=== PATIENT | male | born 1950 | race Caucasian/White ===

== ENCOUNTER → 2017-03-10 05:00 | Outpatient (REF) | payer MEDICARE, SELFPAY ==
[2017-03-10 09:41] LABS: AST(SGOT) 27 U/L (15-37); Alanine Aminotransfer ALT/SGPT 27 U/L (12-78); Alkaline Phosphatase 76 U/L (45-117); Anion Gap 9 (5-15); BUN 10 mg/dL (7-18); BUN/Creat Ratio 16.3 RATIO (10-20); Bilirubin, Direct 0.12 mg/dL (0.00-0.30); Calcium,Total 8.9 mg/dL (8.5-10.1); Chloride 102 mmol/L (98-107); Creatinine, Serum 0.61 mg/dL (0.70-1.30); EST Glomerular Filtration Rate 140 mL/min (>60); Est Glom Filt Rate - Afr Amer 169 mL/min (>60); Globulin 4.1 g/dL (2.2-4.2); Glucose 83 mg/dL (70-110); Potassium 4.1 mmol/L (3.5-5.1); Protein, Total 7.1 g/dL (6.4-8.2); Sodium Level 139 mmol/L (136-145)
[2017-03-14 09:20] LABS: Trileptal-Oxcarbazepine 30 ug/mL (10-35)
== END ==
LOC: OLS.WCC 05:00
PROVIDERS: Visit Provider Family Medicine
DX: I10 Essential (primary) hypertension (principal); Z79.899 Other long term (current) drug therapy
CPT/HCPCS: 36415; 80048; 80076; 82542

== ENCOUNTER → 2017-05-13 05:30 | Outpatient (REF) | payer MEDICARE, SELFPAY ==
[2017-05-16 07:05] LABS: Trileptal-Oxcarbazepine 21 ug/mL (10-35)
== END ==
LOC: OLS.WCC 05:30
PROVIDERS: Visit Provider Family Medicine
DX: Z79.899 Other long term (current) drug therapy (principal)
CPT/HCPCS: 36415; 82542

== ENCOUNTER → 2017-06-07 05:00 | Outpatient (REF) | payer MEDICARE, SELFPAY ==
[2017-06-07 08:00] LABS: Hematocrit 40.3 % (40-54); Hemoglobin 13.7 g/dl (13.0-16.5); Mean Corpuscular Hgb 34.2 pg (27.0-32.0); Mean Corpuscular Volume 100.5 fL (80-94); Mean Platelet Vol. 9.6 fl (6.2-12.0); Platelet Count 86 K/mm3 (150-450); RBC Distribution Width CV 13.2 % (11.6-14.6); RBC Distribution Width SD 48.8 fl (35.1-43.9); Red Blood Count 4.01 M/mm3 (4.6-6.2); White Blood Count 2.8 K/mm3 (4.4-11.0)
[2017-06-07 08:04] LABS: Scan Indicated on CBC? Y/N NO
[2017-06-07 08:06] LABS: Anion Gap 8 (5-15); BUN 11 mg/dL (7-18); BUN/Creat Ratio 20.7 RATIO (10-20); Calcium,Total 8.6 mg/dL (8.5-10.1); Chloride 107 mmol/L (98-107); Creatinine, Serum 0.53 mg/dL (0.70-1.30); EST Glomerular Filtration Rate 164 mL/min (>60); Est Glom Filt Rate - Afr Amer 199 mL/min (>60); Glucose 89 mg/dL (74-106); Potassium 3.9 mmol/L (3.5-5.1); Sodium Level 142 mmol/L (136-145)
[2017-06-09 13:00] LABS: Trileptal-Oxcarbazepine 16 ug/mL (10-35)
== END ==
LOC: OLS.WCC 05:00
PROVIDERS: Visit Provider Family Medicine
DX: I10 Essential (primary) hypertension (principal); R56.9 Unspecified convulsions; Z79.899 Other long term (current) drug therapy
CPT/HCPCS: 80048; 82542; 85027

== ENCOUNTER → 2017-09-07 05:50 | Outpatient (REF) | payer MEDICARE, SELFPAY ==
[2017-09-12 23:28] LABS: AST(SGOT) 26 U/L (15-37); Alanine Aminotransfer ALT/SGPT 26 U/L (16-61); Albumin, Serum 2.9 g/dL (3.2-5.0); Alkaline Phosphatase 77 U/L (45-117); Anion Gap 8 (5-15); BUN 13 mg/dL (7-18); BUN/Creat Ratio 20.6 RATIO (10-20); Bilirubin, Direct 0.12 mg/dL (0.00-0.30); Calcium,Total 8.9 mg/dL (8.5-10.1); Chloride 109 mmol/L (98-107); Creatinine, Serum 0.63 mg/dL (0.70-1.30); EST Glomerular Filtration Rate 135 mL/min (>60); Est Glom Filt Rate - Afr Amer 164 mL/min (>60); Globulin 4.3 g/dL (2.2-4.2); Glucose 87 mg/dL (74-106); PSA,Total - Annual Screen 0.38 ng/mL (0.00-4.00); Potassium 3.9 mmol/L (3.5-5.1); Protein, Total 7.2 g/dL (6.4-8.2); Sodium Level 145 mmol/L (136-145)
== END ==
LOC: OLS.WCC 05:50
PROVIDERS: Visit Provider Family Medicine
DX: I10 Essential (primary) hypertension (principal); Z79.899 Other long term (current) drug therapy; R56.9 Unspecified convulsions
CPT/HCPCS: 36415; 80048; 80076; 82542; 84153; G0103

== ENCOUNTER → 2017-12-08 05:00 | Outpatient (REF) | payer MEDICARE, SELFPAY ==
[2017-12-08 09:28] LABS: Hematocrit 42.4 % (40-54); Hemoglobin 14.3 g/dl (13.0-16.5); Mean Corp Hgb Conc 33.7 g/gl (32-36); Mean Corpuscular Hgb 34.5 pg (27.0-32.0); Mean Corpuscular Volume 102.2 fL (80-94); Mean Platelet Vol. 10.4 fl (6.2-12.0); Platelet Count 93 K/mm3 (150-450); Red Blood Count 4.15 M/mm3 (4.6-6.2); White Blood Count 3.2 K/mm3 (4.4-11.0)
[2017-12-08 09:33] LABS: AST(SGOT) 32 U/L (15-37); Alanine Aminotransfer ALT/SGPT 32 U/L (16-61); Alkaline Phosphatase 72 U/L (45-117); Anion Gap 7 (5-15); BUN 11 mg/dL (7-18); BUN/Creat Ratio 17.5 RATIO (10-20); Bilirubin, Direct 0.15 mg/dL (0.00-0.30); Calcium,Total 8.9 mg/dL (8.5-10.1); Chloride 107 mmol/L (98-107); Cholesterol 214 mg/dL (200); Creatinine, Serum 0.63 mg/dL (0.70-1.30); EST Glomerular Filtration Rate 135 mL/min (>60); Est Glom Filt Rate - Afr Amer 164 mL/min (>60); Globulin 4.1 g/dL (2.2-4.2); Glucose 86 mg/dL (74-106); High Density Lipoprotein 46 mg/dL; Potassium 4.2 mmol/L (3.5-5.1); Protein, Total 7.1 g/dL (6.4-8.2); Scan Indicated on CBC? Y/N NO; Sodium Level 144 mmol/L (136-145); Triglycerides 139 mg/dL; Very Low Density Lipoprotein 28 mg/dL (5-40)
[2017-12-11 11:57] LABS: Trileptal-Oxcarbazepine 29 ug/mL (10-35)
== END ==
LOC: OLS.WCC 05:00
PROVIDERS: Visit Provider Family Medicine
DX: I10 Essential (primary) hypertension (principal); Z79.899 Other long term (current) drug therapy
CPT/HCPCS: 36415; 80048; 80061; 80076; 82542; 85027

== ENCOUNTER → 2018-03-09 05:00 | Outpatient (REF) | payer MEDICARE, SELFPAY ==
[2018-03-09 09:10] LABS: AST(SGOT) 27 U/L (15-37); Alanine Aminotransfer ALT/SGPT 28 U/L (16-61); Albumin, Serum 2.7 g/dL (3.2-5.0); Alkaline Phosphatase 70 U/L (45-117); Anion Gap 5 (5-15); BUN 12 mg/dL (7-18); BUN/Creat Ratio 21.8 RATIO (10-20); Bilirubin, Direct 0.15 mg/dL (0.00-0.30); Calcium,Total 8.5 mg/dL (8.5-10.1); Chloride 107 mmol/L (98-107); Creatinine, Serum 0.55 mg/dL (0.70-1.30); EST Glomerular Filtration Rate 158 mL/min (>60); Est Glom Filt Rate - Afr Amer 191 mL/min (>60); Globulin 4.1 g/dL (2.2-4.2); Glucose 75 mg/dL (74-106); Potassium 4.2 mmol/L (3.5-5.1); Protein, Total 6.8 g/dL (6.4-8.2); Sodium Level 142 mmol/L (136-145)
[2018-03-15 09:18] LABS: Trileptal-Oxcarbazepine 41 ug/mL (10-35)
== END ==
LOC: OLS.WCC 05:00
PROVIDERS: Visit Provider Family Medicine
DX: Z79.899 Other long term (current) drug therapy (principal); R56.9 Unspecified convulsions; G80.9 Cerebral palsy, unspecified
CPT/HCPCS: 36415; 80048; 80076; 82542

== ENCOUNTER → 2018-06-06 05:00 | Outpatient (REF) | payer MEDICARE, SELFPAY ==
[2018-06-06 08:39] LABS: Hematocrit 43.2 % (40-54); Hemoglobin 14.4 g/dl (13.0-16.5); Mean Corp Hgb Conc 33.3 g/gl (32-36); Mean Corpuscular Hgb 34.4 pg (27.0-32.0); Mean Corpuscular Volume 103.1 fL (80-94); Mean Platelet Vol. 10.2 fl (6.2-12.0); Platelet Count 104 K/mm3 (150-450); RBC Distribution Width CV 12.8 % (11.6-14.6); RBC Distribution Width SD 47.8 fl (35.1-43.9); Red Blood Count 4.19 M/mm3 (4.6-6.2); White Blood Count 4.4 K/mm3 (4.4-11.0)
[2018-06-06 08:42] LABS: Scan Indicated on CBC? Y/N NO
[2018-06-06 08:45] LABS: Anion Gap 6 (5-15); BUN 15 mg/dL (7-18); BUN/Creat Ratio 23.6 RATIO (10-20); Calcium,Total 8.5 mg/dL (8.5-10.1); Chloride 107 mmol/L (98-107); Creatinine, Serum 0.64 mg/dL (0.70-1.30); EST Glomerular Filtration Rate 134 mL/min (>60); Est Glom Filt Rate - Afr Amer 162 mL/min (>60); Glucose 80 mg/dL (74-106); Potassium 4.2 mmol/L (3.5-5.1); Sodium Level 143 mmol/L (136-145)
[2018-06-09 12:59] LABS: Trileptal-Oxcarbazepine 26 ug/mL (10-35)
== END ==
LOC: OLS.WCC 05:00
PROVIDERS: Visit Provider Family Medicine
DX: I10 Essential (primary) hypertension (principal); R56.9 Unspecified convulsions; Z79.899 Other long term (current) drug therapy
CPT/HCPCS: 36415; 80048; 82542; 85027

== ENCOUNTER → 2018-09-07 | Outpatient (REF) | payer MEDICARE, SELFPAY ==
[2018-09-07 08:30] LABS: AST(SGOT) 24 U/L (15-37); Alanine Aminotransfer ALT/SGPT 24 U/L (16-61); Albumin, Serum 2.7 g/dL (3.2-5.0); Alkaline Phosphatase 66 U/L (45-117); Anion Gap 6 (5-15); BUN 10 mg/dL (7-18); BUN/Creat Ratio 16.2 RATIO (10-20); Bilirubin, Direct 0.13 mg/dL (0.00-0.30); Calcium,Total 8.4 mg/dL (8.5-10.1); Chloride 102 mmol/L (98-107); Creatinine, Serum 0.62 mg/dL (0.70-1.30); EST Glomerular Filtration Rate 138 mL/min (>60); Est Glom Filt Rate - Afr Amer 166 mL/min (>60); Glucose 88 mg/dL (74-106); PSA,Total - Annual Screen 1.03 ng/mL (0.00-4.00); Potassium 3.2 mmol/L (3.5-5.1); Protein, Total 6.7 g/dL (6.4-8.2); Sodium Level 138 mmol/L (136-145)
[2018-09-10 13:56] LABS: Trileptal-Oxcarbazepine 31 ug/mL (10-35)
== END | disposition home or self-care (01) ==
LOC: OLS.WCC 06:45
PROVIDERS: Visit Provider Family Medicine
DX: I10 Essential (primary) hypertension (principal); Z79.899 Other long term (current) drug therapy; R56.9 Unspecified convulsions; Z12.5 Encounter for screening for malignant neoplasm of prostate
CPT/HCPCS: 36415; 80048; 80076; 82542; 84153; G0103

== ENCOUNTER → 2018-12-08 05:00 | Outpatient (REF) | payer MEDICARE, SELFPAY ==
[2018-12-08 07:48] LABS: Hemoglobin 13.5 g/dL (13.0-16.5); Mean Corp Hgb Conc 32.9 g/dL (32-36); Mean Corpuscular Hgb 33.5 pg (27.0-32.0); Mean Corpuscular Volume 101.7 fL (80-94); Mean Platelet Vol. 10.3 fl (6.2-12.0); Platelet Count 90 K/mm3 (150-450); RBC Distribution Width CV 12.8 % (11.6-14.6); RBC Distribution Width SD 47.9 fl (35.1-43.9); Red Blood Count 4.03 M/mm3 (4.6-6.2); White Blood Count 2.9 K/mm3 (4.4-11.0)
[2018-12-08 08:24] LABS: Anion Gap 6 (5-15); BUN 10 mg/dL (7-18); BUN/Creat Ratio 18.8 RATIO (10-20); Calcium,Total 8.7 mg/dL (8.5-10.1); Chloride 109 mmol/L (98-107); Cholesterol 190 mg/dL (200); Creatinine, Serum 0.53 mg/dL (0.70-1.30); EST Glomerular Filtration Rate 164 mL/min (>60); Est Glom Filt Rate - Afr Amer 198 mL/min (>60); Glucose 77 mg/dL (74-106); High Density Lipoprotein 52 mg/dL; Potassium 4.2 mmol/L (3.5-5.1); Sodium Level 144 mmol/L (136-145); Triglycerides 104 mg/dL; Very Low Density Lipoprotein 21 mg/dL (5-40)
[2018-12-12 09:53] LABS: Trileptal-Oxcarbazepine 24 ug/mL (10-35)
== END ==
LOC: OLS.WCC 05:00
PROVIDERS: Visit Provider Family Medicine
DX: I10 Essential (primary) hypertension (principal); R56.9 Unspecified convulsions; Z79.899 Other long term (current) drug therapy
CPT/HCPCS: 36415; 80048; 80061; 82542; 85027

== ENCOUNTER → 2019-01-09 | Outpatient (REF) | payer MEDICARE, SELFPAY ==
[2019-01-09 07:37] LABS: Absolute Lymphocyte Count 1.06 X10^3/uL (0.83-4.51); Absolute Neutrophil Count 1.6 X10^3/uL (2.0-7.7); Basophil# 0.03 X10^3/uL; Basophil% 0.9 % (0-1); Eosinophil# 0.28 X10^3/uL; Eosinophils% 8.2 % (0-5); Hematocrit 42.5 % (40-54); Hemoglobin 14.2 g/dL (13.0-16.5); Lymphocyte # 1.06 X10^3/ul (4.0); Lymphocyte % 31.2 % (19-41); Mean Corp Hgb Conc 33.4 g/dL (32-36); Mean Corpuscular Hgb 34.2 pg (27.0-32.0); Mean Corpuscular Volume 102.4 fL (80-94); Mean Platelet Vol. 9.8 fl (6.2-12.0); Monocyte# 0.42 X10^3/uL; Monocyte% 12.4 % (0-10); NRBC Flagged by Analyzer 0 % (0-5); Platelet Count 106 K/mm3 (150-450); RBC Distribution Width CV 12.6 % (11.6-14.6); RBC Distribution Width SD 47.2 fl (35.1-43.9); Red Blood Count 4.15 M/mm3 (4.6-6.2); White Blood Count 3.4 K/mm3 (4.4-11.0)
[2019-01-09 07:56] LABS: ALB/GLOB Ratio 0.7 RATIO (0.9-2.4); AST(SGOT) 26 U/L (15-37); Alanine Aminotransfer ALT/SGPT 26 U/L (16-61); Albumin, Serum 2.9 g/dL (3.2-5.0); Alkaline Phosphatase 73 U/L (45-117); Anion Gap 2 (5-15); BUN 10 mg/dL (7-18); BUN/Creat Ratio 15.6 RATIO (10-20); Calcium,Total 8.9 mg/dL (8.5-10.1); Chloride 105 mmol/L (98-107); Creatinine, Serum 0.64 mg/dL (0.70-1.30); EST Glomerular Filtration Rate 133 mL/min (>60); Est Glom Filt Rate - Afr Amer 160 mL/min (>60); Globulin 4.1 g/dL (2.2-4.2); Glucose 97 mg/dL (74-106); Potassium 4.4 mmol/L (3.5-5.1); Sodium Level 139 mmol/L (136-145)
== END | disposition home or self-care (01) ==
LOC: OLS.WCC 05:00
PROVIDERS: Visit Provider Family Medicine
DX: E66.9 Obesity, unspecified (principal); Z79.2 Long term (current) use of antibiotics; F33.9 Major depressive disorder, recurrent, unspecified; G81.13 Spastic hemiplegia affecting right nondominant side; G80.9 Cerebral palsy, unspecified
CPT/HCPCS: 36415; 80053; 85025

== ENCOUNTER → 2019-01-15 | Outpatient (REF) | payer MEDICARE, SELFPAY | END | disposition home or self-care (01) | LOC: OLS.WCC 04:00 | PROVIDERS: Visit Provider Family Medicine | DX: R56.9 Unspecified convulsions (principal); I10 Essential (primary) hypertension; Z79.899 Other long term (current) drug therapy | CPT/HCPCS: 36415 ==

== ENCOUNTER → 2019-03-09 05:00 | Outpatient (REF) | payer MEDICARE, SELFPAY ==
[2019-03-09 07:42] LABS: AST(SGOT) 25 U/L (15-37); Alanine Aminotransfer ALT/SGPT 20 U/L (16-61); Albumin, Serum 2.8 g/dL (3.2-5.0); Alkaline Phosphatase 72 U/L (45-117); Anion Gap 7 (5-15); BUN 9 mg/dL (7-18); BUN/Creat Ratio 13.4 RATIO (10-20); Bilirubin, Direct 0.13 mg/dL (0.00-0.30); Calcium,Total 8.9 mg/dL (8.5-10.1); Chloride 104 mmol/L (98-107); Creatinine, Serum 0.67 mg/dL (0.70-1.30); EST Glomerular Filtration Rate 125 mL/min (>60); Est Glom Filt Rate - Afr Amer 152 mL/min (>60); Glucose 82 mg/dL (74-106); Potassium 3.8 mmol/L (3.5-5.1); Protein, Total 6.8 g/dL (6.4-8.2); Sodium Level 140 mmol/L (136-145)
[2019-03-12 16:19] LABS: Trileptal-Oxcarbazepine 27 ug/mL (10-35)
== END ==
LOC: OLS.WCC 05:00
PROVIDERS: Visit Provider Family Medicine
DX: I10 Essential (primary) hypertension (principal); R56.9 Unspecified convulsions; Z79.899 Other long term (current) drug therapy
CPT/HCPCS: 36415; 80048; 80076; 82542

== ENCOUNTER → 2019-05-11 05:00 | Outpatient (REF) | payer MEDICARE, MEDICAID, SELFPAY | LOC: OLS.WCC 05:00 | PROVIDERS: Visit Provider Family Medicine | DX: Z79.899 Other long term (current) drug therapy (principal) | CPT/HCPCS: 36415 ==

== ENCOUNTER → 2019-06-08 05:00 | Outpatient (REF) | payer MEDICARE, MEDICAID, SELFPAY ==
[2019-06-08 08:29] LABS: Hematocrit 40.1 % (40-54); Hemoglobin 13.7 g/dL (13.0-16.5); Mean Corp Hgb Conc 34.2 g/dL (32-36); Mean Corpuscular Hgb 34.1 pg (27.0-32.0); Mean Corpuscular Volume 99.8 fL (80-94); Platelet Count 119 K/mm3 (150-450); RBC Distribution Width SD 47.4 fl (35.1-43.9); Red Blood Count 4.02 M/mm3 (4.6-6.2); White Blood Count 3.6 K/mm3 (4.4-11.0)
[2019-06-08 08:51] LABS: Anion Gap 3 (5-15); BUN 12 mg/dL (7-18); BUN/Creat Ratio 18.1 RATIO (10-20); Calcium,Total 8.8 mg/dL (8.5-10.1); Chloride 107 mmol/L (98-107); Creatinine, Serum 0.66 mg/dL (0.70-1.30); EST Glomerular Filtration Rate 127 mL/min (>60); Est Glom Filt Rate - Afr Amer 153 mL/min (>60); Glucose 98 mg/dL (74-106); Potassium 4.4 mmol/L (3.5-5.1); Sodium Level 138 mmol/L (136-145)
[2019-06-11 13:44] LABS: Trileptal-Oxcarbazepine 23 ug/mL (10-35)
== END ==
LOC: OLS.WCC 05:00
PROVIDERS: Visit Provider Family Medicine
DX: I10 Essential (primary) hypertension (principal); R56.9 Unspecified convulsions; Z79.899 Other long term (current) drug therapy
CPT/HCPCS: 36415; 80048; 82542; 85027

== ENCOUNTER → 2019-09-07 05:00 | Outpatient (REF) | payer MEDICARE, MEDICAID, SELFPAY | LOC: OLS.WCC 05:00 | PROVIDERS: Visit Provider Family Medicine | DX: I10 Essential (primary) hypertension (principal); R56.9 Unspecified convulsions; Z79.899 Other long term (current) drug therapy ==

== ENCOUNTER → 2019-09-10 04:00 | Outpatient (REF) | payer MEDICARE, MEDICAID, SELFPAY ==
[2019-09-10 09:08] LABS: AST(SGOT) 20 U/L (15-37); Alanine Aminotransfer ALT/SGPT 17 U/L (16-61); Albumin, Serum 2.5 g/dL (3.2-5.0); Alkaline Phosphatase 73 U/L (45-117); Anion Gap 5 (5-15); BUN 11 mg/dL (7-18); BUN/Creat Ratio 16.3 RATIO (10-20); Bilirubin, Direct 0.12 mg/dL (0.00-0.30); Calcium,Total 8.6 mg/dL (8.5-10.1); Chloride 106 mmol/L (98-107); Creatinine, Serum 0.68 mg/dL (0.70-1.30); EST Glomerular Filtration Rate 124 mL/min (>60); Est Glom Filt Rate - Afr Amer 150 mL/min (>60); Globulin 4.3 g/dL (2.2-4.2); Glucose 97 mg/dL (74-106); PSA,Total - Annual Screen 0.36 ng/mL (0.00-4.00); Potassium 3.9 mmol/L (3.5-5.1); Protein, Total 6.8 g/dL (6.4-8.2); Sodium Level 141 mmol/L (136-145)
[2019-09-12 05:26] LABS: Trileptal-Oxcarbazepine 30 ug/mL (10-35)
== END ==
LOC: OLS.WCC 04:00
PROVIDERS: Visit Provider Family Medicine
DX: I10 Essential (primary) hypertension (principal); R56.9 Unspecified convulsions; Z79.899 Other long term (current) drug therapy; Z12.5 Encounter for screening for malignant neoplasm of prostate
CPT/HCPCS: 36415; 80048; 80076; 82542; 84153; G0103

== ENCOUNTER → 2019-11-28 14:20 | Outpatient (REF) | payer MEDICARE, MEDICAID, SELFPAY | LOC: OLS.WCC 14:20 | PROVIDERS: Referring Provider Family Medicine; Visit Provider Family Medicine | DX: Z20.828 Contact with and (suspected) exposure to other viral communicable diseases (principal) | CPT/HCPCS: 87635; U0003 ==

== ENCOUNTER → 2019-12-04 13:20 | Outpatient (REF) | payer MEDICARE, MEDICAID, SELFPAY | LOC: OLS.WCC 13:20 | PROVIDERS: Referring Provider Family Medicine; Visit Provider Family Medicine | DX: Z20.828 Contact with and (suspected) exposure to other viral communicable diseases (principal) | CPT/HCPCS: 87635; U0003 ==

== ENCOUNTER → 2020-01-10 05:00 | Outpatient (REF) | payer MEDICARE, MEDICAID, SELFPAY ==
[2020-01-10 07:47] LABS: Hematocrit 37.9 % (40-54); Mean Corp Hgb Conc 34.3 g/dL (32-36); Mean Corpuscular Hgb 34.4 pg (27.0-32.0); Mean Corpuscular Volume 100.3 fL (80-94); Mean Platelet Vol. 9.9 fl (6.2-12.0); POSITIVE COUNT YES; Platelet Count 94 K/mm3 (150-450); RBC Distribution Width CV 12.7 % (11.6-14.6); RBC Distribution Width SD 46.5 fl (35.1-43.9); Red Blood Count 3.78 M/mm3 (4.6-6.2)
[2020-01-10 08:12] LABS: Anion Gap 4 (5-15); BUN 10 mg/dL (7-18); Calcium,Total 8.6 mg/dL (8.5-10.1); Chloride 103 mmol/L (98-107); Cholesterol 189 mg/dL (200); Creatinine, Serum 0.59 mg/dL (0.70-1.30); EST Glomerular Filtration Rate 145 mL/min (>60); Est Glom Filt Rate - Afr Amer 176 mL/min (>60); Glucose 80 mg/dL (74-106); High Density Lipoprotein 51 mg/dL; Potassium 3.8 mmol/L (3.5-5.1); Sodium Level 137 mmol/L (136-145); Triglycerides 80 mg/dL; Very Low Density Lipoprotein 16 mg/dL (5-40)
[2020-01-14 20:16] LABS: Trileptal-Oxcarbazepine 23 ug/mL (10-35)
== END ==
LOC: OLS.WCC 05:00
PROVIDERS: Referring Provider Family Medicine; Visit Provider Family Medicine
DX: I10 Essential (primary) hypertension (principal); Z79.899 Other long term (current) drug therapy; R56.9 Unspecified convulsions
CPT/HCPCS: 36415; 80048; 80061; 82542; 85027

== ENCOUNTER → 2020-03-10 05:00 | Outpatient (REF) | payer MEDICARE, MEDICAID, SELFPAY ==
[2020-03-10 08:43] LABS: AST(SGOT) 18 U/L (15-37); Alanine Aminotransfer ALT/SGPT 16 U/L (16-61); Albumin, Serum 2.9 g/dL (3.2-5.0); Alkaline Phosphatase 70 U/L (45-117); Bilirubin, Direct 0.15 mg/dL (0.00-0.30); Globulin 3.9 g/dL (2.2-4.2); Protein, Total 6.8 g/dL (6.4-8.2)
== END ==
LOC: OLS.WCC 05:00
PROVIDERS: Referring Provider Family Medicine; Visit Provider Family Medicine
DX: I10 Essential (primary) hypertension (principal); Z79.899 Other long term (current) drug therapy
CPT/HCPCS: 36415; 80076

== ENCOUNTER → 2020-04-09 05:00 | Outpatient (REF) | payer MEDICARE, MEDICAID, SELFPAY ==
[2020-04-09 08:38] LABS: Anion Gap 4 (5-15); BUN 10 mg/dL (7-18); BUN/Creat Ratio 17.8 RATIO (10-20); Calcium,Total 8.6 mg/dL (8.5-10.1); Chloride 102 mmol/L (98-107); Creatinine, Serum 0.56 mg/dL (0.70-1.30); EST Glomerular Filtration Rate 153 mL/min (>60); Est Glom Filt Rate - Afr Amer 185 mL/min (>60); Glucose 82 mg/dL (74-106); Potassium 3.9 mmol/L (3.5-5.1); Sodium Level 137 mmol/L (136-145)
[2020-04-14 20:48] LABS: Trileptal-Oxcarbazepine 23 ug/mL (10-35)
== END ==
LOC: OLS.WCC 05:00
PROVIDERS: Visit Provider Family Medicine
DX: I10 Essential (primary) hypertension (principal); R56.9 Unspecified convulsions; Z79.899 Other long term (current) drug therapy
CPT/HCPCS: 36415; 80048; 82542

== ENCOUNTER → 2020-07-08 06:52 | Outpatient (REF) | payer MEDICARE, MEDICAID, SELFPAY ==
[2020-07-08 08:15] LABS: Hematocrit 38.7 % (40-54); Hemoglobin 13.1 g/dL (13.0-16.5); Mean Corp Hgb Conc 33.9 g/dL (32-36); Mean Corpuscular Hgb 33.3 pg (27.0-32.0); Mean Corpuscular Volume 98.5 fL (80-94); POSITIVE COUNT YES; Platelet Count 85 K/mm3 (150-450); RBC Distribution Width CV 12.3 % (11.6-14.6); RBC Distribution Width SD 44.6 fl (35.1-43.9); Red Blood Count 3.93 M/mm3 (4.6-6.2); White Blood Count 2.8 K/mm3 (4.4-11.0)
[2020-07-08 08:23] LABS: Scan Indicated on CBC? Y/N YES- FLAGS NOTED
[2020-07-08 08:31] LABS: Anion Gap 4 (5-15); BUN 9 mg/dL (7-18); BUN/Creat Ratio 15.3 RATIO (10-20); Calcium,Total 8.5 mg/dL (8.5-10.1); Chloride 103 mmol/L (98-107); Creatinine, Serum 0.59 mg/dL (0.70-1.30); EST Glomerular Filtration Rate 145 mL/min (>60); Est Glom Filt Rate - Afr Amer 176 mL/min (>60); Glucose 89 mg/dL (74-106); Potassium 3.8 mmol/L (3.5-5.1); Sodium Level 137 mmol/L (136-145)
[2020-07-11 15:21] LABS: Trileptal-Oxcarbazepine 28 ug/mL (10-35)
== END ==
LOC: OLS.WCC 06:52
PROVIDERS: Referring Provider Family Medicine; Visit Provider Family Medicine
DX: I10 Essential (primary) hypertension (principal); R56.9 Unspecified convulsions; Z79.899 Other long term (current) drug therapy
CPT/HCPCS: 36415; 80048; 82542; 85027

== ENCOUNTER → 2020-08-11 04:00 | Outpatient (REF) | payer MEDICARE, MEDICAID, SELFPAY ==
[2020-08-11 08:32] LABS: Absolute Lymphocyte Count 1.07 X10^3/uL (0.83-4.51); Absolute Neutrophil Count 1.6 X10^3/uL (2.0-7.7); Basophil# 0.03 X10^3/uL; Basophil% 0.9 % (0-1); Eosinophil# 0.15 X10^3/uL; Eosinophils% 4.6 % (0-5); Hematocrit 40.7 % (40-54); Hemoglobin 13.4 g/dL (13.0-16.5); Lymphocyte # 1.07 X10^3/ul (0.83-4.51); Mean Corp Hgb Conc 32.9 g/dL (32-36); Mean Corpuscular Hgb 32.7 pg (27.0-32.0); Mean Corpuscular Volume 99.3 fL (80-94); Monocyte# 0.39 X10^3/uL; NRBC Flagged by Analyzer 0 % (0-5); Neutrophil % 49.5 % (47-70); Platelet Count 104 K/mm3 (150-450); RBC Distribution Width CV 12.7 % (11.6-14.6); RBC Distribution Width SD 46.5 fl (35.1-43.9); White Blood Count 3.2 K/mm3 (4.4-11.0)
== END ==
LOC: OLS.WCC 04:00
PROVIDERS: Referring Provider Family Medicine; Visit Provider Family Medicine
DX: I10 Essential (primary) hypertension (principal); R56.9 Unspecified convulsions; Z79.899 Other long term (current) drug therapy
CPT/HCPCS: 36415; 85025

== ENCOUNTER → 2020-09-10 05:00 | Outpatient (REF) | payer MEDICARE, MEDICAID, SELFPAY ==
[2020-09-10 08:12] LABS: AST(SGOT) 19 U/L (15-37); Alanine Aminotransfer ALT/SGPT 18 U/L (16-61); Albumin, Serum 2.6 g/dL (3.2-5.0); Alkaline Phosphatase 68 U/L (45-117); Bilirubin, Direct 0.14 mg/dL (0.00-0.30); Globulin 3.6 g/dL (2.2-4.2); PSA,Total - Annual Screen 0.32 ng/mL (0.00-4.00); Protein, Total 6.2 g/dL (6.4-8.2)
== END ==
LOC: OLS.WCC 05:00
PROVIDERS: Referring Provider Family Medicine; Visit Provider Family Medicine
DX: R56.9 Unspecified convulsions (principal); I10 Essential (primary) hypertension; Z79.899 Other long term (current) drug therapy; Z12.5 Encounter for screening for malignant neoplasm of prostate
CPT/HCPCS: 36415; 80076; 84153; G0103

== ENCOUNTER → 2020-10-07 05:00 | Outpatient (REF) | payer MEDICARE, MEDICAID, SELFPAY ==
[2020-10-07 08:32] LABS: Anion Gap 5 (5-15); BUN 10 mg/dL (7-18); BUN/Creat Ratio 14.8 RATIO (10-20); Calcium,Total 8.4 mg/dL (8.5-10.1); Chloride 106 mmol/L (98-107); Creatinine, Serum 0.68 mg/dL (0.70-1.30); EST Glomerular Filtration Rate 123 mL/min (>60); Est Glom Filt Rate - Afr Amer 149 mL/min (>60); Glucose 108 mg/dL (74-106); Potassium 3.8 mmol/L (3.5-5.1); Sodium Level 141 mmol/L (136-145)
[2020-10-10 18:39] LABS: Trileptal-Oxcarbazepine 27 ug/mL (10-35)
== END ==
LOC: OLS.WCC 05:00
PROVIDERS: Referring Provider Family Medicine; Visit Provider Family Medicine
DX: I10 Essential (primary) hypertension (principal); R56.9 Unspecified convulsions; Z79.899 Other long term (current) drug therapy
CPT/HCPCS: 36415; 80048; 82542

== ENCOUNTER → 2021-01-08 05:00 | Outpatient (REF) | payer MEDICARE, MEDICAID, SELFPAY ==
[2021-01-12 11:17] LABS: Trileptal-Oxcarbazepine 24 ug/mL (10-35)
== END ==
LOC: OLS.WCC 05:00
PROVIDERS: Visit Provider Family Medicine
DX: I10 Essential (primary) hypertension (principal); E78.5 Hyperlipidemia, unspecified; R56.9 Unspecified convulsions; Z79.899 Other long term (current) drug therapy
CPT/HCPCS: 36415; 82542

== ENCOUNTER → 2021-03-10 05:00 | Outpatient (REF) | payer MEDICARE, MEDICAID, SELFPAY ==
[2021-03-10 09:29] LABS: AST(SGOT) 21 U/L (15-37); Alanine Aminotransfer ALT/SGPT 19 U/L (16-61); Albumin, Serum 2.6 g/dL (3.2-5.0); Alkaline Phosphatase 68 U/L (45-117); Bilirubin, Direct 0.13 mg/dL (0.00-0.30); Globulin 3.9 g/dL (2.2-4.2); Protein, Total 6.5 g/dL (6.4-8.2)
== END ==
LOC: OLS.WCC 05:00
PROVIDERS: Visit Provider Family Medicine
DX: I10 Essential (primary) hypertension (principal); R56.9 Unspecified convulsions; Z79.899 Other long term (current) drug therapy
CPT/HCPCS: 36415; 80076

== ENCOUNTER 2021-04-10 05:00 | Outpatient (REF) | payer MEDICARE, MEDICAID, SELFPAY ==
[2021-04-10 07:41] LABS: Anion Gap 4 (5-15); BUN 14 mg/dL (7-18); BUN/Creat Ratio 24.4 RATIO (10-20); Calcium,Total 8.9 mg/dL (8.5-10.1); Chloride 109 mmol/L (98-107); Creatinine, Serum 0.57 mg/dL (0.70-1.30); EST Glomerular Filtration Rate 149 mL/min (>60); Est Glom Filt Rate - Afr Amer 180 mL/min (>60); Glucose 109 mg/dL (74-106); Potassium 4.2 mmol/L (3.5-5.1); Sodium Level 141 mmol/L (136-145)
[2021-04-15 18:04] LABS: Trileptal-Oxcarbazepine 27 ug/mL (10-35)
== END 2021-04-10 23:59 | disposition home or self-care (01) ==
LOC: OLS.WCC 05:00
PROVIDERS: Visit Provider Family Medicine
DX: R56.9 Unspecified convulsions (principal); I10 Essential (primary) hypertension; Z79.899 Other long term (current) drug therapy
CPT/HCPCS: 36415; 80048; 82542

== ENCOUNTER → 2021-04-27 | Outpatient (REF) | payer MEDICARE, MEDICAID, SELFPAY | END | disposition home or self-care (01) | LOC: OLS.WCC 15:30 | PROVIDERS: Referring Provider Family Medicine; Visit Provider Family Medicine | DX: Z20.822 Contact with and (suspected) exposure to COVID-19 (principal) | CPT/HCPCS: 87635; U0003; U0005 ==

== ENCOUNTER → 2021-07-08 | Outpatient (REF) | payer MEDICARE, MEDICAID, SELFPAY ==
[2021-07-08 08:33] LABS: Hematocrit 38.5 % (40-54); Hemoglobin 13.4 g/dL (13.0-16.5); Mean Corp Hgb Conc 34.8 g/dL (32-36); Mean Corpuscular Hgb 34.2 pg (27.0-32.0); Mean Corpuscular Volume 98.2 fL (80-94); Mean Platelet Vol. 10.9 fl (6.2-12.0); POSITIVE COUNT YES; Platelet Count 81 K/mm3 (150-450); RBC Distribution Width CV 12.4 % (11.6-14.6); RBC Distribution Width SD 44.7 fl (35.1-43.9); Red Blood Count 3.92 M/mm3 (4.6-6.2)
[2021-07-08 08:52] LABS: Anion Gap 1 (5-15); BUN 9 mg/dL (7-18); BUN/Creat Ratio 16.5 RATIO (10-20); Calcium,Total 8.5 mg/dL (8.5-10.1); Chloride 105 mmol/L (98-107); Creatinine, Serum 0.54 mg/dL (0.70-1.30); EST Glomerular Filtration Rate 158 mL/min (>60); Est Glom Filt Rate - Afr Amer 191 mL/min (>60); Glucose 92 mg/dL (74-106); Potassium 3.7 mmol/L (3.5-5.1); Sodium Level 138 mmol/L (136-145)
[2021-07-14 15:30] LABS: Trileptal-Oxcarbazepine 25 ug/mL (10-35)
== END | disposition home or self-care (01) ==
LOC: OLS.WCC 04:00
PROVIDERS: Referring Provider Family Medicine; Visit Provider Family Medicine
DX: I10 Essential (primary) hypertension (principal); R56.9 Unspecified convulsions; Z79.899 Other long term (current) drug therapy
CPT/HCPCS: 36415; 80048; 82542; 85027

== ENCOUNTER → 2021-08-07 | Outpatient (REF) | payer MEDICARE, MEDICAID, SELFPAY ==
[2021-08-07 08:42] LABS: Hematocrit 37.5 % (40-54); Mean Corp Hgb Conc 34.7 g/dL (32-36); Mean Corpuscular Volume 98.2 fL (80-94); Mean Platelet Vol. 9.8 fl (6.2-12.0); POSITIVE COUNT YES; Platelet Count 94 K/mm3 (150-450); RBC Distribution Width CV 12.2 % (11.6-14.6); RBC Distribution Width SD 44.3 fl (35.1-43.9); Red Blood Count 3.82 M/mm3 (4.6-6.2); White Blood Count 2.5 K/mm3 (4.4-11.0)
[2021-08-07 08:52] LABS: Anion Gap 5 (5-15); BUN 10 mg/dL (7-18); BUN/Creat Ratio 15.1 RATIO (10-20); Calcium,Total 8.2 mg/dL (8.5-10.1); Chloride 102 mmol/L (98-107); Creatinine, Serum 0.66 mg/dL (0.70-1.30); EST Glomerular Filtration Rate 126 mL/min (>60); Est Glom Filt Rate - Afr Amer 152 mL/min (>60); Glucose 104 mg/dL (74-106); Potassium 3.5 mmol/L (3.5-5.1); Sodium Level 137 mmol/L (136-145)
[2021-08-12 07:47] LABS: Trileptal-Oxcarbazepine 22 ug/mL (10-35)
== END | disposition home or self-care (01) ==
LOC: OLS.WCC 05:00
PROVIDERS: Visit Provider Internal Medicine
DX: I10 Essential (primary) hypertension (principal); R56.9 Unspecified convulsions; Z79.899 Other long term (current) drug therapy
CPT/HCPCS: 36415; 80048; 82542; 85027

== ENCOUNTER → 2021-09-07 | Outpatient (REF) | payer MEDICARE, MEDICAID, SELFPAY ==
[2021-09-07 10:57] LABS: AST(SGOT) 19 U/L (15-37); Alanine Aminotransfer ALT/SGPT 19 U/L (16-61); Albumin, Serum 2.7 g/dL (3.2-5.0); Alkaline Phosphatase 66 U/L (45-117); Bilirubin, Direct 0.12 mg/dL (0.00-0.30); Globulin 3.7 g/dL (2.2-4.2); PSA,Total- Diagnostic 0.32 ng/mL (0.0-4.0); Protein, Total 6.4 g/dL (6.4-8.2)
== END | disposition home or self-care (01) ==
LOC: OLS.WCC 05:00
PROVIDERS: Visit Provider Family Medicine
DX: N40.0 Benign prostatic hyperplasia without lower urinary tract symptoms (principal); R56.9 Unspecified convulsions; I10 Essential (primary) hypertension; Z79.899 Other long term (current) drug therapy
CPT/HCPCS: 36415; 80076; 84153

== ENCOUNTER → 2021-10-07 05:00 | Outpatient (REF) | payer MEDICARE, MEDICAID, SELFPAY ==
[2021-10-07 08:22] LABS: Anion Gap 4 (5-15); BUN 8 mg/dL (7-18); BUN/Creat Ratio 13.3 RATIO (10-20); Calcium,Total 8.4 mg/dL (8.5-10.1); Chloride 104 mmol/L (98-107); EST Glomerular Filtration Rate 141 mL/min (>60); Est Glom Filt Rate - Afr Amer 170 mL/min (>60); Glucose 95 mg/dL (74-106); Potassium 3.6 mmol/L (3.5-5.1); Sodium Level 137 mmol/L (136-145)
[2021-10-12 13:18] LABS: Trileptal-Oxcarbazepine 24 ug/mL (10-35)
== END ==
LOC: OLS.WCC 05:00
PROVIDERS: Visit Provider Family Medicine
DX: I10 Essential (primary) hypertension (principal); R56.9 Unspecified convulsions; Z79.899 Other long term (current) drug therapy
CPT/HCPCS: 36415; 80048; 82542

== ENCOUNTER → 2022-01-07 | Outpatient (REF) | payer MEDICARE, MEDICAID, SELFPAY ==
[2022-01-07 08:51] LABS: Hematocrit 36.1 % (40-54); Hemoglobin 12.6 g/dL (13.0-16.5); Mean Corp Hgb Conc 34.9 g/dL (32-36); Mean Corpuscular Volume 97.3 fL (80-94); Mean Platelet Vol. 10.4 fl (6.2-12.0); POSITIVE COUNT YES; Platelet Count 95 K/mm3 (150-450); RBC Distribution Width CV 12.7 % (11.6-14.6); RBC Distribution Width SD 45.3 fl (35.1-43.9); Red Blood Count 3.71 M/mm3 (4.6-6.2); White Blood Count 2.9 K/mm3 (4.4-11.0)
[2022-01-07 09:04] LABS: Anion Gap 6 (5-15); BUN 10 mg/dL (7-18); BUN/Creat Ratio 17.4 RATIO (10-20); Calcium,Total 8.7 mg/dL (8.5-10.1); Chloride 104 mmol/L (98-107); Cholesterol 176 mg/dL (200); Creatinine, Serum 0.58 mg/dL (0.70-1.30); EST Glomerular Filtration Rate 148 mL/min (>60); Est Glom Filt Rate - Afr Amer 180 mL/min (>60); Glucose 103 mg/dL (74-106); High Density Lipoprotein 48 mg/dL; Potassium 3.3 mmol/L (3.5-5.1); Sodium Level 140 mmol/L (136-145); Triglycerides 76 mg/dL; Very Low Density Lipoprotein 15 mg/dL (5-40)
[2022-01-11 14:31] LABS: Trileptal-Oxcarbazepine 25 ug/mL (10-35)
== END ==
LOC: OLS.WCC 05:00
PROVIDERS: Visit Provider Family Medicine
DX: I10 Essential (primary) hypertension (principal); R56.9 Unspecified convulsions; Z79.899 Other long term (current) drug therapy
CPT/HCPCS: 36415; 80048; 80061; 82542; 85027

== ENCOUNTER → 2022-03-09 | Outpatient (REF) | payer MEDICARE, MEDICAID, SELFPAY ==
[2022-03-09 09:38] LABS: AST(SGOT) 18 U/L (15-37); Alanine Aminotransfer ALT/SGPT 16 U/L (16-61); Albumin, Serum 2.5 g/dL (3.2-5.0); Alkaline Phosphatase 65 U/L (45-117); Bilirubin, Direct 0.09 mg/dL (0.00-0.30); Globulin 3.5 g/dL (2.2-4.2)
== END ==
LOC: OLS.WCC 05:00
PROVIDERS: Visit Provider Family Medicine
DX: Z79.899 Other long term (current) drug therapy (principal)
CPT/HCPCS: 36415; 80076

== ENCOUNTER → 2022-04-12 | Outpatient (REF) | payer MEDICARE, MEDICAID, SELFPAY ==
[2022-04-12 10:30] LABS: Anion Gap 7 (5-15); BUN 13 mg/dL (7-18); BUN/Creat Ratio 19.2 RATIO (10-20); Calcium,Total 8.4 mg/dL (8.5-10.1); Chloride 106 mmol/L (98-107); Creatinine, Serum 0.68 mg/dL (0.70-1.30); EST Glomerular Filtration Rate 123 mL/min (>60); Est Glom Filt Rate - Afr Amer 148 mL/min (>60); Glucose 108 mg/dL (74-106); Potassium 3.4 mmol/L (3.5-5.1); Sodium Level 142 mmol/L (136-145)
[2022-04-15 20:52] LABS: Trileptal-Oxcarbazepine 23 ug/mL (10-35)
== END ==
LOC: OLS.WCC 05:00
PROVIDERS: Visit Provider Family Medicine
DX: I10 Essential (primary) hypertension (principal); R56.9 Unspecified convulsions; Z79.899 Other long term (current) drug therapy
CPT/HCPCS: 36415; 80048; 82542

== ENCOUNTER → 2022-07-06 | Outpatient (REF) | payer MEDICARE, MEDICAID, SELFPAY ==
[2022-07-06 08:24] LABS: Hematocrit 37.9 % (40-54); Hemoglobin 12.9 g/dL (13.0-16.5); Mean Corpuscular Hgb 33.8 pg (27.0-32.0); Mean Corpuscular Volume 99.2 fL (80-94); Mean Platelet Vol. 10.1 fl (6.2-12.0); POSITIVE COUNT YES; Platelet Count 99 K/mm3 (150-450); RBC Distribution Width CV 12.7 % (11.6-14.6); RBC Distribution Width SD 45.8 fl (35.1-43.9); Red Blood Count 3.82 M/mm3 (4.6-6.2); White Blood Count 2.9 K/mm3 (4.4-11.0)
[2022-07-06 08:37] LABS: Anion Gap 4 (5-15); BUN 10 mg/dL (7-18); BUN/Creat Ratio 15.2 RATIO (10-20); Calcium,Total 8.7 mg/dL (8.5-10.1); Chloride 105 mmol/L (98-107); Creatinine, Serum 0.66 mg/dL (0.70-1.30); EST Glomerular Filtration Rate 127 mL/min (>60); Est Glom Filt Rate - Afr Amer 154 mL/min (>60); Glucose 110 mg/dL (74-106); Potassium 3.7 mmol/L (3.5-5.1); Sodium Level 138 mmol/L (136-145)
[2022-07-09 15:17] LABS: Trileptal-Oxcarbazepine 29 ug/mL (10-35)
== END ==
LOC: OLS.WCC 05:00
PROVIDERS: Visit Provider Family Medicine
DX: R56.9 Unspecified convulsions (principal); I10 Essential (primary) hypertension; Z79.899 Other long term (current) drug therapy
CPT/HCPCS: 36415; 80048; 82542; 85027

== ENCOUNTER → 2022-09-07 | Outpatient (REF) | payer MEDICARE, MEDICAID, SELFPAY ==
[2022-09-07 07:57] LABS: AST(SGOT) 23 U/L (15-37); Alanine Aminotransfer ALT/SGPT 19 U/L (16-61); Albumin, Serum 2.6 g/dL (3.2-5.0); Alkaline Phosphatase 74 U/L (45-117); Bilirubin, Direct 0.14 mg/dL (0.00-0.30); Globulin 3.6 g/dL (2.2-4.2); PSA,Total - Annual Screen 0.33 ng/mL (0.00-4.00); Protein, Total 6.2 g/dL (6.4-8.2)
== END ==
LOC: OLS.WCC 05:00
PROVIDERS: Visit Provider Family Medicine
DX: Z79.899 Other long term (current) drug therapy (principal); Z12.5 Encounter for screening for malignant neoplasm of prostate
CPT/HCPCS: 36415; 80076; 84153; G0103

== ENCOUNTER → 2022-10-15 | Outpatient (REF) | payer MEDICARE, MEDICAID, SELFPAY ==
[2022-10-15 07:57] LABS: Absolute Lymphocyte Count 1.06 X10^3/uL (0.83-4.51); Absolute Neutrophil Count 1.6 X10^3/uL (2.0-7.7); Basophil# 0.03 X10^3/uL; Basophil% 0.9 % (0-1); Eosinophil# 0.24 X10^3/uL; Eosinophils% 7.2 % (0-5); Hematocrit 34.4 % (40-54); Hemoglobin 12.1 g/dL (13.0-16.5); Lymphocyte # 1.06 X10^3/ul (0.83-4.51); Lymphocyte % 31.8 % (19-41); Mean Corp Hgb Conc 35.2 g/dL (32-36); Mean Corpuscular Hgb 34.2 pg (27.0-32.0); Mean Corpuscular Volume 97.2 fL (80-94); Monocyte# 0.44 X10^3/uL; Monocyte% 13.2 % (0-10); NRBC Flagged by Analyzer 0 % (0-5); Neutrophil # 1.55 X10^3/uL (2.7-7.7); Neutrophil % 46.6 % (47-70); Platelet Count 100 K/mm3 (150-450); RBC Distribution Width CV 12.4 % (11.6-14.6); RBC Distribution Width SD 44.5 fl (35.1-43.9); Red Blood Count 3.54 M/mm3 (4.6-6.2); White Blood Count 3.3 K/mm3 (4.4-11.0)
[2022-10-15 08:29] LABS: Anion Gap 4 (5-15); BUN 8 mg/dL (7-18); BUN/Creat Ratio 14.5 RATIO (10-20); Calcium,Total 8.2 mg/dL (8.5-10.1); Chloride 103 mmol/L (98-107); Creatinine, Serum 0.55 mg/dL (0.70-1.30); EST Glomerular Filtration Rate 156 mL/min (>60); Est Glom Filt Rate - Afr Amer 189 mL/min (>60); Glucose 97 mg/dL (74-106); Potassium 3.3 mmol/L (3.5-5.1); Sodium Level 135 mmol/L (136-145)
[2022-10-18 19:07] LABS: Trileptal-Oxcarbazepine 26 ug/mL (10-35)
== END ==
LOC: OLS.WCC 05:00
PROVIDERS: Visit Provider Family Medicine
DX: I10 Essential (primary) hypertension (principal); R56.9 Unspecified convulsions; Z79.899 Other long term (current) drug therapy
CPT/HCPCS: 36415; 80048; 82542; 85025

== ENCOUNTER → 2023-01-10 | Outpatient (REF) | payer MEDICARE, MEDICAID, SELFPAY ==
[2023-01-10 08:46] LABS: Absolute Lymphocyte Count 1.29 X10^3/uL (0.83-4.51); Absolute Neutrophil Count 1.8 X10^3/uL (2.0-7.7); Basophil# 0.06 X10^3/uL; Basophil% 1.5 % (0-1); Eosinophil# 0.47 X10^3/uL; Eosinophils% 11.5 % (0-5); Hemoglobin 13.3 g/dL (13.0-16.5); Lymphocyte # 1.29 X10^3/ul (0.83-4.51); Lymphocyte % 31.7 % (19-41); Mean Corp Hgb Conc 34.1 g/dL (32-36); Mean Corpuscular Hgb 33.8 pg (27.0-32.0); Mean Platelet Vol. 10.6 fl (6.2-12.0); Monocyte# 0.43 X10^3/uL; Monocyte% 10.6 % (0-10); NRBC Flagged by Analyzer 0 % (0-5); Neutrophil # 1.82 X10^3/uL (2.7-7.7); Neutrophil % 44.7 % (47-70); Platelet Count 111 K/mm3 (150-450); RBC Distribution Width CV 12.2 % (11.6-14.6); RBC Distribution Width SD 44.7 fl (35.1-43.9); Red Blood Count 3.94 M/mm3 (4.6-6.2); White Blood Count 4.1 K/mm3 (4.4-11.0)
[2023-01-10 09:43] LABS: Anion Gap 7 (5-15); BUN 9 mg/dL (7-18); BUN/Creat Ratio 12.3 RATIO (10-20); Calcium,Total 8.2 mg/dL (8.5-10.1); Chloride 106 mmol/L (98-107); Cholesterol 189 mg/dL (200); Creatinine, Serum 0.73 mg/dL (0.70-1.30); EST Glomerular Filtration Rate 113 mL/min (>60); Est Glom Filt Rate - Afr Amer 136 mL/min (>60); Glucose 102 mg/dL (74-106); High Density Lipoprotein 52 mg/dL; Potassium 3.1 mmol/L (3.5-5.1); Sodium Level 141 mmol/L (136-145); Triglycerides 94 mg/dL; Very Low Density Lipoprotein 19 mg/dL (5-40)
[2023-01-12 05:07] LABS: Trileptal-Oxcarbazepine 27 ug/mL (10-35)
== END ==
LOC: OLS.WCC 05:00
PROVIDERS: Visit Provider Family Medicine
DX: I10 Essential (primary) hypertension (principal); R56.9 Unspecified convulsions; F33.9 Major depressive disorder, recurrent, unspecified
CPT/HCPCS: 36415; 80048; 80061; 82542; 85025

== ENCOUNTER → 2023-02-16 | Outpatient (REF) | payer MEDICARE, MEDICAID, SELFPAY ==
[2023-02-16 09:31] LABS: Anion Gap 6 (5-15); Chloride 106 mmol/L (98-107); Potassium 3.6 mmol/L (3.5-5.1); Sodium Level 144 mmol/L (136-145)
== END ==
LOC: OLS.WCC 08:10
PROVIDERS: Visit Provider Family Medicine
DX: I10 Essential (primary) hypertension (principal); Z79.899 Other long term (current) drug therapy
CPT/HCPCS: 36415; 80051

== ENCOUNTER → 2023-03-08 | Outpatient (REF) | payer MEDICARE, MEDICAID, SELFPAY ==
[2023-03-08 10:08] LABS: AST(SGOT) 27 U/L (15-37); Alanine Aminotransfer ALT/SGPT 21 U/L (16-61); Albumin, Serum 2.5 g/dL (3.2-5.0); Alkaline Phosphatase 82 U/L (45-117); Bilirubin, Direct 0.16 mg/dL (0.00-0.30); Globulin 3.9 g/dL (2.2-4.2); Protein, Total 6.4 g/dL (6.4-8.2)
== END ==
LOC: OLS.WCC 05:00
PROVIDERS: Visit Provider Family Medicine
DX: Z79.899 Other long term (current) drug therapy (principal)
CPT/HCPCS: 36415; 80076

== ENCOUNTER → 2023-04-11 | Outpatient (REF) | payer MEDICARE, MEDICAID, SELFPAY ==
[2023-04-11 09:16] LABS: Absolute Lymphocyte Count 0.92 X10^3/uL (0.83-4.51); Absolute Neutrophil Count 1.6 X10^3/uL (2.0-7.7); Basophil# 0.02 X10^3/uL; Basophil% 0.6 % (0-1); Eosinophil# 0.22 X10^3/uL; Eosinophils% 6.8 % (0-5); Hematocrit 36.8 % (40-54); Hemoglobin 12.4 g/dL (13.0-16.5); Lymphocyte # 0.92 X10^3/ul (0.83-4.51); Lymphocyte % 28.6 % (19-41); Mean Corp Hgb Conc 33.7 g/dL (32-36); Mean Corpuscular Hgb 34.3 pg (27.0-32.0); Mean Corpuscular Volume 101.9 fL (80-94); Monocyte# 0.42 X10^3/uL; NRBC Flagged by Analyzer 0 % (0-5); Neutrophil # 1.64 X10^3/uL (2.7-7.7); Platelet Count 104 K/mm3 (150-450); RBC Distribution Width CV 13.1 % (11.6-14.6); RBC Distribution Width SD 49.4 fl (35.1-43.9); Red Blood Count 3.61 M/mm3 (4.6-6.2); White Blood Count 3.2 K/mm3 (4.4-11.0)
[2023-04-11 09:49] LABS: Anion Gap 1 (5-15); BUN 13 mg/dL (7-18); BUN/Creat Ratio 18.4 RATIO (10-20); Chloride 105 mmol/L (98-107); EST Glomerular Filtration Rate 117 mL/min (>60); Est Glom Filt Rate - Afr Amer 141 mL/min (>60); Glucose 115 mg/dL (74-106); Potassium 3.6 mmol/L (3.5-5.1); Sodium Level 140 mmol/L (136-145)
[2023-04-14 00:07] LABS: Trileptal-Oxcarbazepine 27 ug/mL (10-35)
== END ==
LOC: OLS.WCC 04:00
PROVIDERS: Referring Provider Family Medicine; Visit Provider Family Medicine
DX: R56.9 Unspecified convulsions (principal); Z79.899 Other long term (current) drug therapy
CPT/HCPCS: 36415; 80048; 82542; 85025

== ENCOUNTER → 2023-07-11 | Outpatient (REF) | payer MEDICARE, MEDICAID, SELFPAY ==
[2023-07-11 09:09] LABS: Absolute Lymphocyte Count 0.99 X10^3/uL (0.83-4.51); Absolute Neutrophil Count 1.4 X10^3/uL (2.0-7.7); Basophil# 0.03 X10^3/uL; Eosinophil# 0.25 X10^3/uL; Eosinophils% 8.2 % (0-5); Hematocrit 35.7 % (40-54); Hemoglobin 12.3 g/dL (13.0-16.5); Lymphocyte # 0.99 X10^3/ul (0.83-4.51); Lymphocyte % 32.5 % (19-41); Mean Corp Hgb Conc 34.5 g/dL (32-36); Mean Corpuscular Hgb 33.5 pg (27.0-32.0); Mean Corpuscular Volume 97.3 fL (80-94); Mean Platelet Vol. 9.7 fl (6.2-12.0); Monocyte# 0.38 X10^3/uL; Monocyte% 12.5 % (0-10); NRBC Flagged by Analyzer 0 % (0-5); Neutrophil # 1.39 X10^3/uL (2.7-7.7); Neutrophil % 45.5 % (47-70); POSITIVE COUNT YES; Platelet Count 92 K/mm3 (150-450); RBC Distribution Width CV 12.6 % (11.6-14.6); RBC Distribution Width SD 45.5 fl (35.1-43.9); Red Blood Count 3.67 M/mm3 (4.6-6.2); White Blood Count 3.1 K/mm3 (4.4-11.0)
[2023-07-11 09:21] LABS: Anion Gap 5 (5-15); BUN 18 mg/dL (7-18); BUN/Creat Ratio 28.9 RATIO (10-20); Calcium,Total 8.3 mg/dL (8.5-10.1); Chloride 104 mmol/L (98-107); Creatinine, Serum 0.62 mg/dL (0.70-1.30); EST Glomerular Filtration Rate 135 mL/min (>60); Est Glom Filt Rate - Afr Amer 163 mL/min (>60); Glucose 90 mg/dL (74-106); Potassium 3.4 mmol/L (3.5-5.1); Sodium Level 138 mmol/L (136-145)
[2023-07-14 01:07] LABS: Trileptal-Oxcarbazepine 26 ug/mL (10-35)
== END ==
LOC: OLS.WCC 05:00
PROVIDERS: Visit Provider Family Medicine
DX: R56.9 Unspecified convulsions (principal); I10 Essential (primary) hypertension; Z79.899 Other long term (current) drug therapy
CPT/HCPCS: 36415; 80048; 82542; 85025

== ENCOUNTER → 2023-09-08 05:00 | Outpatient (REF) | payer MEDICARE, MEDICAID, SELFPAY ==
[2023-09-08 09:30] LABS: AST(SGOT) 25 U/L (15-37); Alanine Aminotransfer ALT/SGPT 18 U/L (16-61); Albumin, Serum 2.4 g/dL (3.2-5.0); Alkaline Phosphatase 69 U/L (45-117); Bilirubin, Direct 0.15 mg/dL (0.00-0.30); Globulin 3.4 g/dL (2.2-4.2); PSA,Total - Annual Screen 0.26 ng/mL (0.00-4.00); Protein, Total 5.8 g/dL (6.4-8.2)
== END ==
LOC: OLS.WCC 05:00
PROVIDERS: Visit Provider Family Medicine
DX: Z79.899 Other long term (current) drug therapy (principal); N40.0 Benign prostatic hyperplasia without lower urinary tract symptoms; Z12.5 Encounter for screening for malignant neoplasm of prostate
CPT/HCPCS: 36415; 80076; 84153; G0103

== ENCOUNTER → 2023-10-10 | Outpatient (REF) | payer MEDICARE, MEDICAID, SELFPAY ==
[2023-10-10 09:58] LABS: Absolute Lymphocyte Count 0.96 X10^3/uL (0.83-4.51); Absolute Neutrophil Count 1.4 X10^3/uL (2.0-7.7); Basophil# 0.03 X10^3/uL; Eosinophil# 0.39 X10^3/uL; Eosinophils% 12.7 % (0-5); Hematocrit 37.1 % (40-54); Hemoglobin 12.5 g/dL (13.0-16.5); Lymphocyte # 0.96 X10^3/ul (0.83-4.51); Lymphocyte % 31.2 % (19-41); Mean Corp Hgb Conc 33.7 g/dL (32-36); Mean Corpuscular Hgb 33.6 pg (27.0-32.0); Mean Corpuscular Volume 99.7 fL (80-94); Mean Platelet Vol. 10.2 fl (6.2-12.0); Monocyte# 0.31 X10^3/uL; Monocyte% 10.1 % (0-10); NRBC Flagged by Analyzer 0 % (0-5); Neutrophil # 1.38 X10^3/uL (2.7-7.7); Neutrophil % 44.7 % (47-70); POSITIVE COUNT YES; Platelet Count 88 K/mm3 (150-450); RBC Distribution Width CV 12.5 % (11.6-14.6); RBC Distribution Width SD 45.6 fl (35.1-43.9); Red Blood Count 3.72 M/mm3 (4.6-6.2); White Blood Count 3.1 K/mm3 (4.4-11.0)
[2023-10-10 10:38] LABS: Anion Gap 4 (5-15); BUN 18 mg/dL (7-18); BUN/Creat Ratio 26.2 RATIO (10-20); Calcium,Total 8.7 mg/dL (8.5-10.1); Chloride 108 mmol/L (98-107); Creatinine, Serum 0.69 mg/dL (0.70-1.30); EST Glomerular Filtration Rate 120 mL/min (>60); Est Glom Filt Rate - Afr Amer 145 mL/min (>60); Glucose 98 mg/dL (74-106); Potassium 3.6 mmol/L (3.5-5.1); Sodium Level 142 mmol/L (136-145)
[2023-10-13 13:09] LABS: Trileptal-Oxcarbazepine 23 ug/mL (10-35)
== END ==
LOC: OLS.WCC 05:00
PROVIDERS: Visit Provider Family Medicine
DX: I10 Essential (primary) hypertension (principal); R56.9 Unspecified convulsions; Z79.899 Other long term (current) drug therapy
CPT/HCPCS: 36415; 80048; 82542; 85025

== ENCOUNTER → 2024-01-09 | Outpatient (REF) | payer MEDICARE, MEDICAID, SELFPAY ==
[2024-01-09 08:32] LABS: Absolute Lymphocyte Count 0.81 X10^3/uL (0.83-4.51); Absolute Neutrophil Count 1.2 X10^3/uL (2.0-7.7); Basophil# 0.02 X10^3/uL; Basophil% 0.8 % (0-1); Eosinophil# 0.14 X10^3/uL; Eosinophils% 5.8 % (0-5); Hemoglobin 13.3 g/dL (13.0-16.5); Lymphocyte # 0.81 X10^3/ul (0.83-4.51); Lymphocyte % 33.8 % (19-41); Mean Corp Hgb Conc 34.1 g/dL (32-36); Mean Corpuscular Hgb 33.7 pg (27.0-32.0); Mean Corpuscular Volume 98.7 fL (80-94); Mean Platelet Vol. 10.1 fl (6.2-12.0); Monocyte# 0.28 X10^3/uL; Monocyte% 11.7 % (0-10); NRBC Flagged by Analyzer 0 % (0-5); Neutrophil # 1.15 X10^3/uL (2.7-7.7); Neutrophil % 47.9 % (47-70); POSITIVE COUNT YES; Platelet Count 86 K/mm3 (150-450); RBC Distribution Width CV 12.2 % (11.6-14.6); Red Blood Count 3.95 M/mm3 (4.6-6.2); White Blood Count 2.4 K/mm3 (4.4-11.0)
[2024-01-09 09:58] LABS: Anion Gap 6 (5-15); BUN 13 mg/dL (7-18); BUN/Creat Ratio 21.3 RATIO (10-20); Calcium,Total 8.7 mg/dL (8.5-10.1); Chloride 105 mmol/L (98-107); Cholesterol 168 mg/dL (200); Creatinine, Serum 0.61 mg/dL (0.70-1.30); EST Glomerular Filtration Rate 138 mL/min (>60); Est Glom Filt Rate - Afr Amer 167 mL/min (>60); Glucose 82 mg/dL (74-106); High Density Lipoprotein 55 mg/dL; Potassium 3.6 mmol/L (3.5-5.1); Sodium Level 140 mmol/L (136-145); Triglycerides 70 mg/dL; Very Low Density Lipoprotein 14 mg/dL (5-40)
[2024-01-12 14:10] LABS: Trileptal-Oxcarbazepine 28 ug/mL (10-35)
== END ==
LOC: OLS.WCC 04:00
PROVIDERS: Visit Provider Family Medicine
DX: I10 Essential (primary) hypertension (principal); R56.9 Unspecified convulsions; Z79.899 Other long term (current) drug therapy
CPT/HCPCS: 36415; 80048; 80061; 82542; 85025

== ENCOUNTER → 2024-03-13 | Outpatient (REF) | payer MEDICARE, MEDICAID, SELFPAY ==
[2024-03-13 08:43] LABS: AST(SGOT) 25 U/L (15-37); Alanine Aminotransfer ALT/SGPT 20 U/L (16-61); Albumin, Serum 2.9 g/dL (3.2-5.0); Alkaline Phosphatase 89 U/L (45-117); Bilirubin, Direct 0.15 mg/dL (0.00-0.30); Globulin 3.8 g/dL (2.2-4.2); Protein, Total 6.7 g/dL (6.4-8.2)
== END ==
LOC: OLS.WCC 05:00
PROVIDERS: Visit Provider Family Medicine
DX: Z79.899 Other long term (current) drug therapy (principal)
CPT/HCPCS: 36415; 80076

== ENCOUNTER → 2024-04-10 04:00 | Outpatient (REF) | payer MEDICARE, MEDICAID, SELFPAY ==
[2024-04-10 08:29] LABS: Absolute Lymphocyte Count 0.69 X10^3/uL (0.83-4.51); Basophil# 0.01 X10^3/uL; Basophil% 0.5 % (0-1); Eosinophil# 0.11 X10^3/uL; Eosinophils% 5.3 % (0-5); Hematocrit 36.9 % (40-54); Hemoglobin 12.4 g/dL (13.0-16.5); Lymphocyte # 0.69 X10^3/ul (0.83-4.51); Lymphocyte % 33.2 % (19-41); Mean Corp Hgb Conc 33.6 g/dL (32-36); Mean Corpuscular Hgb 33.4 pg (27.0-32.0); Mean Corpuscular Volume 99.5 fL (80-94); Mean Platelet Vol. 10.2 fl (6.2-12.0); Monocyte# 0.26 X10^3/uL; Monocyte% 12.5 % (0-10); NRBC Flagged by Analyzer 0 % (0-5); Neutrophil # 1.01 X10^3/uL (2.7-7.7); Neutrophil % 48.5 % (47-70); POSITIVE COUNT YES; Platelet Count 82 K/mm3 (150-450); RBC Distribution Width CV 12.7 % (11.6-14.6); RBC Distribution Width SD 46.8 fl (35.1-43.9); Red Blood Count 3.71 M/mm3 (4.6-6.2); White Blood Count 2.1 K/mm3 (4.4-11.0)
[2024-04-10 23:47] LABS: Anion Gap 3 (5-15); BUN 16 mg/dL (7-18); BUN/Creat Ratio 23.4 RATIO (10-20); Calcium,Total 8.7 mg/dL (8.5-10.1); Chloride 107 mmol/L (98-107); Creatinine, Serum 0.68 mg/dL (0.70-1.30); EST Glomerular Filtration Rate 120 mL/min (>60); Est Glom Filt Rate - Afr Amer 146 mL/min (>60); Glucose 106 mg/dL (74-106); Potassium 3.8 mmol/L (3.5-5.1); Sodium Level 142 mmol/L (136-145)
[2024-04-16 10:07] LABS: Trileptal-Oxcarbazepine 28 ug/mL (10-35)
== END ==
LOC: OLS.WCC 04:00
PROVIDERS: PCP Family Medicine; Referring Provider Family Medicine; Visit Provider Family Medicine
DX: I87.2 Venous insufficiency (chronic) (peripheral) (principal); G80.9 Cerebral palsy, unspecified; Z79.899 Other long term (current) drug therapy; I10 Essential (primary) hypertension
CPT/HCPCS: 36415; 80048; 82542; 85025

== ENCOUNTER → 2024-05-14 05:00 | Outpatient (REF) | payer MEDICARE, MEDICAID, SELFPAY ==
[2024-05-14 09:24] LABS: Absolute Lymphocyte Count 0.94 X10^3/uL (0.83-4.51); Absolute Neutrophil Count 1.4 X10^3/uL (2.0-7.7); Basophil# 0.02 X10^3/uL; Basophil% 0.7 % (0-1); Eosinophil# 0.19 X10^3/uL; Eosinophils% 6.3 % (0-5); Hematocrit 35.6 % (40-54); Hemoglobin 12.4 g/dL (13.0-16.5); Lymphocyte # 0.94 X10^3/ul (0.83-4.51); Lymphocyte % 31.3 % (19-41); Mean Corp Hgb Conc 34.8 g/dL (32-36); Mean Corpuscular Hgb 34.2 pg (27.0-32.0); Mean Corpuscular Volume 98.1 fL (80-94); Monocyte% 13.3 % (0-10); NRBC Flagged by Analyzer 0 % (0-5); Neutrophil # 1.44 X10^3/uL (2.7-7.7); Neutrophil % 48.1 % (47-70); POSITIVE COUNT YES; Platelet Count 98 K/mm3 (150-450); RBC Distribution Width CV 12.5 % (11.6-14.6); RBC Distribution Width SD 45.1 fl (35.1-43.9); Red Blood Count 3.63 M/mm3 (4.6-6.2)
== END ==
LOC: OLS.WCC 05:00
PROVIDERS: PCP Family Medicine; Visit Provider Family Medicine
DX: Z79.899 Other long term (current) drug therapy (principal)
CPT/HCPCS: 36415; 85025

== ENCOUNTER → 2024-07-09 | Outpatient (REF) | payer MEDICARE, MEDICAID, SELFPAY ==
[2024-07-09 09:37] LABS: Absolute Lymphocyte Count 0.94 X10^3/uL (0.83-4.51); Absolute Neutrophil Count 1.9 X10^3/uL (2.0-7.7); Basophil# 0.04 X10^3/uL; Basophil% 1.1 % (0-1); Eosinophils% 5.6 % (0-5); Hemoglobin 12.6 g/dL (13.0-16.5); Lymphocyte # 0.94 X10^3/ul (0.83-4.51); Lymphocyte % 26.3 % (19-41); Mean Corpuscular Hgb 34.7 pg (27.0-32.0); Mean Corpuscular Volume 99.2 fL (80-94); Mean Platelet Vol. 9.8 fl (6.2-12.0); Monocyte# 0.47 X10^3/uL; Monocyte% 13.1 % (0-10); NRBC Flagged by Analyzer 0 % (0-5); Neutrophil # 1.92 X10^3/uL (2.7-7.7); Neutrophil % 53.6 % (47-70); Platelet Count 109 K/mm3 (150-450); RBC Distribution Width CV 12.9 % (11.6-14.6); RBC Distribution Width SD 46.5 fl (35.1-43.9); Red Blood Count 3.63 M/mm3 (4.6-6.2); White Blood Count 3.6 K/mm3 (4.4-11.0)
[2024-07-09 09:57] LABS: Anion Gap 8 (5-15); BUN 17 mg/dL (4-19); BUN/Creat Ratio 25.8 RATIO (10-20); Calcium,Total 8.6 mg/dL (7.6-11.0); Carbon Dioxide 28.3 mmol/L (21.0-32.0); Chloride 103 mmol/L (98-108); Creatinine, Serum 0.64 mg/dL (0.70-1.20); EST Glomerular Filtration Rate 100 (>60); Glucose 98 mg/dL (70-99); Potassium 3.7 mmol/L (3.3-5.1); Sodium Level 139 mmol/L (133-145)
== END ==
LOC: OLS.WCC 04:00
PROVIDERS: PCP Family Medicine; Referring Provider Family Medicine; Visit Provider Family Medicine
DX: I10 Essential (primary) hypertension (principal); G80.9 Cerebral palsy, unspecified; Z79.899 Other long term (current) drug therapy
CPT/HCPCS: 36415; 80048; 82542; 85025

== ENCOUNTER → 2024-09-10 04:00 | Outpatient (REF) | payer MEDICARE, MEDICAID, SELFPAY ==
--- OUTSIDE RECORDS SUMMARY | 2024-09-10 03:38 | XMS RPT_ITS | CCD ---
Author Organization [facility] Team Providers Care Tin Dipper Name Role Phone Chris Winston MD Attending Provider Rahul Winston MD, Chris Santacruz Primary Care Provider Kassandra Winston MD, Chris Santacruz Referring Provider Unavailable Catrachito BRANNON, Chris Santacruz Referring Unavailable Catrachito BRANNON, Chris Santacruz Primary Care Unavailable Catrachito BRANNON, Chris Santacruz Attending Unavailable Catrachito OLS, Chris Santacruz Primary Care Unavailable Winston OLS, Chris Santacruz Attending Unavailable Winston OLS, Chris Santacruz Referring Unavailable Winston OLS, Chris Santacruz Primary Care Unavailable Catrachito BRANNON, Chris Santacruz Attending Unavailable Winston OLS, Chris Santacruz Attending Unavailable Winston OLS, Chris Santacruz Attending Unavailable Winston OLS, Chris Santacruz Attending Unavailable Wisnton OLS, Chris Santacruz Attending Unavailable Problems Active Problems Problem Classification Problem Date Documented Date Episodic/Chronic Essential hypertension (1 source) Essential (primary) hypertension; Translations: [Essential (primary) hypertension] Onset: 07-11-2024 Chronic Hyperplasia of prostate (1 source) Benign prostatic hyperplasia without lower urinary tract symptoms; Translations: [Benign prostatic hyperplasia without lower urinary tract symptoms] Onset: 09-08-2023 Chronic Other aftercare (2 sources) 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; Translations: [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] Onset: 05-28-2024 Episodic Other diseases of veins and lymphatics (1 source) Venous insufficiency (chronic) (peripheral); Translations: [Venous insufficiency (chronic) (peripheral)] Onset: 05-10-2024 Episodic Other nervous system disorders (1 source) Disorder of trigeminal nerve, unspecified; Translations: [Disorder of trigeminal nerve, unspecified] Onset: 05-10-2024 Episodic Paralysis (1 source) Cerebral palsy, unspecified; Translations: [Cerebral palsy, unspecified] Onset: 07-11-2024 Chronic Past or Other Problems Problem Classification Problem Date Documented Da te Episodic/Chronic Epilepsy; convulsions (1 source) Unspecified convulsions; Translations: [Unspecified convulsions] Onset: 03-30-2024 Episodic Results Test Name Value Interpretation Reference Range Facility [facility].on 07-14-2024 [facility]. COMMENT Normal . [facility] Comment on above: Order Comment: 128-1 Result Comment: Test Ordered: [id number] Lacosamide Test(s) 334300-Gaepdcdwjf was developed and its performance characteristics determined by [facility]. It has not been cleared or approved by the Food and Drug Administration. Lacosamide 14.4 [H ] ug/mL Reference Range: 5.0-10.0 Limit of Detection 0.5 Mean plasma concentrations following maintenance dose 200 mg/day 4.99 +/- 2.51 ug/mL 400 mg/day 9.35 +/- 4.22 ug/mL 600 mg/day 12.46 +/- 5.60 ug/mL Performed at: [address] [id number] [employer]ag [employer] Operator: Mindy Parkinson MD, Phone: [phone] Performed at: [address] [id number] Slag [employer] Operator: Cooper Malcolm PhD, Phone: [phone] Performed By: #### L 500.3400, L513.9910 #### [facility] Laboratory [address] [place], [address] Trileptal-Oxcarbazepineon OXCARBAZEPINE 29 ug/mL Normal 10-35 [facility] Comment on above: Order Comment: 128-1 Result Comment: This test was developed and its performance characteristics determined by [facility]. It has not been cleared or approved by the Food and Drug Administration. Detection Limit = 1 Performed at: [address] [id number] Slag Motor Operator: Mindy Parkinson MD, Phone: [phone] Performed By: #### L 500.3400, L501.9910 #### [facility] Laboratory [address] [place], [address] [facility].on 07-12-2024 [facility] Misc. COMMENT Normal . [facility] Comment on above: Order Comment: 124.1 [id number] GABAPENTIN, RED, ROOM TEMP Result Comment: Test Ordered: [id number] Gabapentin (Neurontin), Serum Gabapentin, Serum 5.4 ug/mL Reference Range: 4.0-16.0 Detection Limit = 1.0 Performed at: [facility] [id number] Slag Motor Operator: Mindy Parkinson MD, Phone: [phone] Performed at: [facility] [id number] Slag Motor Operator: Cooper Malcolm PhD, Phone: [phone] Performed By: #### L 3410.9998 #### [facility] Laboratory [address] [place], [place], [id number] Absolute neutrophil countOrd ered By: Chris Winston on 07-09-2024 Neutrophils (Bld) [#/Vol] 1.9 10*3/uL Low 2.0-7.7 [facility] Anion gap in Serum or Plasma Ordered By: Chris Winston on 07-09-2024 Anion gap [Moles/Vol] 8 mmol/L 5-15 [facility] BUN/creatinine ratioOrdered By: Chris Winston on 07-09-2024 Urea nitrogen/Creatinine [Mass ratio] 25.8 mg/mg High 10-20 [facility] Basic Metabolic Profile (BMP )on 07-09-2024 BUN/CRE 25.8 RATIO High [facility]20 [facility] Comment on above: Order Comment: 124.1 Performed By: #### L 100.0100, L500.2500, L3800.1700, L3410.9998 #### [facility] Laboratory [address] [place], [place], [id number] Calcium [Mass/Vol] 8.6 mg/dL Normal 7.6-11.0 [facility] Comment on above: Order Comment: 124.1 Performed By: #### L 100.0100, L500.2500, L3800.1700, L3410.9998 #### [facility] Laboratory [address] [place], [address] Chloride [Moles/Vol] 103 mmol/L Normal 98-108 [facility] Comment on above: Order Comment: 124.1 Performed By: #### L 100.0100, L500.2500, L3800.1700, L3410.9998 #### [facility] Laboratory [address] [place], [address] CO2 [Moles/Vol] 28.3 mmol/L Normal 21.0-32.0 [facility] Comment on above: Order Comment: 124.1 Performed By: #### L 100.0100, L500.2500, L3800.1700, [id number] #### [facility] Laboratory [address] [place], [address] Creatinine [Mass/Vol] 0.64 mg/dL Low 0.70-1.20 [facility] Comment on above: Order Comment: 124.1 Performed By: #### L 100.0100, L500.2500, L3800.1700, L3410.9998 #### [facility] Laboratory [address] [place], [address] GAP 8 Normal 5-15 [facility] Comment on above: Order Comment: 124.1 Performed By: #### L 100.0100, L500.2500, L3800.1700, L3410.9998 #### [facility] Laboratory [address] [place], [address] GFR/1.73 sq M.predicted among non-blacks MDRD (S/P/Bld) [Vol rate/Area] 100 mL/min/{1.73_m2} Normal >60 [facility] Comment on above: Order Comment: 124.1 Result Comment: mL/m in/1.73m2 CKD-EPI Creatinine Equation (2020) Performed By: #### L 100.0100, L500.2500, L3800.1700, L3410.9998 #### [facility] Laboratory [address] [place], [address] Glucose [Mass/Vol] 98 mg/dL Normal 70-99 [facility] Comment on above: Order Comment: 124.1 Performed By: #### L 100.0100, L500.2500, L3800.1700, L3410.9998 #### [facility] Laboratory [address] [place], [address] Potassium [Moles/Vol] 3.7 mmol/L Normal 3.3-5.1 [facility] Comment on above: Order Comment: 124.1 Performed By: #### L 100.0100, L500.2500, L3800.1700, L3410.9998 #### [facility] Laboratory [address] [place], [address] Sodium [Moles/Vol] 139 mmol/L Normal 133-145 [facility] Comment on above: Order Comment: 124.1 Performed By: #### L 100.0100, L500.2500, L3800.1700, L3410.9998 #### [facility] Laboratory [address] [place], [address] Urea nitrogen [Mass/Vol] 17 mg/dL Normal 4-19 [facility] Comment on above: Order Comment: 124.1 Performed By: #### L 100.0100, L500.2500, L3800.1700, L3410.9998 #### [facility] Laboratory [address] [place], [address] Basophil percentageOrdered B y: Chris Winston on 07-09-2024 Basophils/100 WBC (Bld) 1.1 % High 0-1 [facility] CBC W/Diff, Automatedon Absolute Lymph 0.94 X10 3/uL Normal 0.83-4.51 [facility] Comment on above: Order Comment: 124.1 Performed By: #### L 100.0100, L500.2500, L3800.1700, L3410.9998 #### [facility] Laboratory [address] [place], [address] Absolute Neut 1.9 X10 3/uL Low 2.0-7.7 [facility] Comment on above: Order Comment: 124.1 Performed By: #### L 100.0100, L500.2500, L3800.1700, L3410.9998 #### [facility] Laboratory [address] [place], [address] Basophils/100 WBC (Bld) 1.1 % High 0-1 [facility] Comment on above: Order Comment: 124.1 Performed By: #### L 100.0100, L500.2500, L3800.1700, L3410.9998 #### [facility] Laboratory [address] [place], [address] Eosinophils/100 WBC (Bld) 5.6 % High 0-5 [facility] Comment on above: Order Comment: 124.1 Performed By: #### L 100.0100, L500.2500, L3800.1700, [id number] #### [facility] Laboratory [address] [place], [address] Erythrocyte distribution width (RBC) [Ratio] 12.9 % Normal 11.6-14.6 [facility] Comment on above: Order Comment: 124.1 Performed By: #### L 100.0100, L500.2500, L3800.1700, L3410.9998 #### [facility] Laboratory [address] [place], [address] Hematocrit (Bld) [Volume fraction] 36.0 % Low 40-54 [facility] Comment on above: Order Comment: 124.1 Performed By: #### L 100.0100, L500.2500, L3800.1700, L3410.9998 #### [facility] Laboratory [address] [place], [address] Hemoglobin (Bld) [Mass/Vol] 12.6 g/dL Low 13.0-16.5 [facility] Comment on above: Order Comment: 124.1 Performed By: #### L 100.0100, L500.2500, L3800.1700, L3410.9998 #### [facility] Laboratory [address] [place], [address] IG% 0.300 Normal 0.0-0.9 [facility] Comment on above: Order Comment: 124.1 Result Comment: IG% - Immature Granulocytes (promyelocytes, myelocytes and metamyelocytes) > 1% indicates that a LEFT SHIFT is Present. Performed By: #### L 100.0100, L500.2500, L3800.1700, L3410.9998 #### [facility] Laboratory [address] [place], [address] Lymphocytes/100 WBC (Bld) 26.3 % Normal 19-41 [facility] Comment on above: Order Comment: 124.1 Performed By: #### L 100.0100, L500.2500, L3800.1700, [id number] #### [facility] Laboratory [address] [place], [address] MCH (RBC) [Entitic mass] 34.7 pg High 27.0-32.0 [facility] Comment on above: Order Comment: 124.1 Performed By: #### L 100.0100, L500.2500, L3800.1700, [id number] #### [facility] Laboratory [address] [place], [address] MCHC (RBC) [Mass/Vol] 35.0 g/dL Normal 32-36 [facility] Comment on above: Order Comment: 124.1 Performed By: #### L 100.0100, L500.2500, L3800.1700, [id number] #### [facility] Laboratory [address] [place], [address] MCV (RBC) [Entitic vol] 99.2 fL High 80-94 [facility] Comment on above: Order Comment: 124.1 Performed By: #### L 100.0100, L500.2500, L3800.1700, [id number] #### [facility] Laboratory [address] [place], [address] Monocytes/100 WBC (Bld) 13.1 % High 0-10 [facility] Comment on above: Order Comment: 124.1 Performed By: #### L 100.0100, L500.2500, L3800.1700, [id number] #### [facility] Laboratory [address] [place], [address] Neutrophils/100 WBC (Bld) 53.6 % Normal 47-70 [facility] Comment on above: Order Comment: 124.1 Performed By: #### L 100.0100, L500.2500, L3800.1700, [id number] #### [facility] Laboratory [address] [place], [address] Nucleated RBC (Bld) [#/Vol] 0 10*3/uL Normal 0-5 [facility] Comment on above: Order Comment: 124.1 Performed By: #### L 100.0100, L500.2500, L3800.1700, L3410.9998 #### [facility] Laboratory [address] [place], [address] Platelet mean volume (Bld) [Entitic vol] 9.8 fL Normal 6.2-12.0 [facility] Comment on above: Order Comment: 124.1 Performed By: #### L 100.0100, L500.2500, L3800.1700, [id number] #### [facility] Laboratory [address] [place], [address] Platelets (Bld) [#/Vol] 109 10*3/uL Low 150-450 [facility] Comment on above: Order Comment: 124.1 Performed By: #### L 100.0100, L500.2500, L3800.1700, [id number] #### [facility] Laboratory [address] [place], [address] RBC (Bld) [#/Vol] 3.63 10*6/uL Low 4.6-6.2 [facility] Comment on above: Order Comment: 124.1 Performed By: #### L 100.0100, L500.2500, L3800.1700, [id number] #### [facility] Laboratory [address] [place], [address] RDW SD 46.5 fl High 35.1-43.9 [facility] Comment on above: Order Comment: 124.1 Performed By: #### L 100.0100, L500.2500, L3800.1700, L3410.9998 #### [facility] Laboratory [address] [place], [address] WBC (Bld) [#/Vol] 3.6 10*3/uL Low 4.4-11.0 [facility] Comment on above: Order Comment: 124.1 Performed By: #### L 100.0100, L500.2500, L3800.1700, L3410.9998 #### [facility] Laboratory [address] [place], [address] Carbon dioxide, total [Moles /volume] in Central venous bloodOrdered By: Chris Winston on 07-09-2024 CO2 [Moles/Vol] 28.3 mmol/L 21.0-32.0 [facility] Chloride assayOrdered By: Margarita Winston on 07-09-2024 Chloride [Moles/Vol] 103 mmol/L 98-108 [facility] Eosinophil percentageOrdered By: Chris Winston on 07-09-2024 Eosinophils/100 WBC (Bld) 5.6 % High 0-5 [facility] Erythrocyte distribution wid th (RBC) [Ratio]Ordered By: Chris Winston on 07-09-2024 Erythrocyte distribution width (RBC) [Entitic vol] 46.5 fL High 35.1-43.9 [facility] Erythrocyte distribution wid th ratioOrdered By: Chris Winston on 07-09-2024 Erythrocyte distribution width (RBC) [Ratio] 12.9 % 11.6-14.6 [facility] GFR/1.73 sq M.predicted glenn g non-blacks MDRD (S/P/Bld) [Vol rate/Area]Ordered By: Chris Winston on 07-09-2024 Estimated GFR (MDRD) Non-Af Amer 100 >60 [facility] Comment on above: mL/min/1.73m2 CKD-EP I Creatinine Equation (2020) Hematocrit Auto (Bld) [Volum e fraction]Ordered By: Chris Winston on 07-09-2024 Hematocrit (Bld) [Volume fraction] 36.0 % Low 40-54 [facility] Hemoglobin measurementOrdere d By: Chris Winston on 07-09-2024 Hemoglobin (Bld) [Mass/Vol] 12.6 g/dL Low 13.0-16.5 [facility] Immature granulocytes/100 WB C Auto (Bld)Ordered By: Chris Winston on 07-09-2024 Immature granulocytes/100 WBC (Bld) 0.300 % 0.0-0.9 [facility] Comment on above: IG% - Immature Granu locytes (promyelocytes, myelocytes and metamyelocytes) > 1% indicates that a LEFT SHIFT is Present. Lymphocytes Auto (Unsp spec) [#/Vol]Ordered By: Chris Winston on 07-09-2024 Lymphocytes (Bld) [#/Vol] 0.94 10*3/uL 0.83-4.51 [facility] Lymphocytes/100 WBC Auto (Un sp spec)Ordered By: Chris Winston on 07-09-2024 Lymphocytes/100 WBC (Bld) 26.3 % 19-41 [facility] MCV (mean corpuscular volume ) determinationOrdered By: Chris Winston on 07-09-2024 MCV (RBC) [Entitic vol] 99.2 fL High 80-94 [facility] Mean corpuscular hemoglobin (MCH) determinationOrdered By: Chris Winston on 07-09-2024 MCH (RBC) [Entitic mass] 34.7 pg High 27.0-32.0 [facility] Mean corpuscular hemoglobin concentration (MCHC) determinationOrdered By: Chris Winston on 07-09-2024 MCHC (RBC) [Mass/Vol] 35.0 g/dL 32-36 [facility] Mean platelet volume determi nationOrdered By: Chris Winston on 07-09-2024 Platelet mean volume (Bld) [Entitic vol] 9.8 fL 6.2-12.0 [facility] Monocyte percentageOrdered B y: Chris Winston on 07-09-2024 Monocytes/100 WBC (Bld) 13.1 % High 0-10 [facility] Neutrophil percentageOrdered By: Chris Winston on 07-09-2024 Neutrophils/100 WBC (Bld) 53.6 % 47-70 [facility] Nucleated red blood cell per centageOrdered By: Chris Winston on 07-09-2024 Nucleated RBC/100 WBC (Bld) [Ratio] 0 % 0-5 [facility] Platelet countOrdered By: Margarita Winston on 07-09-2024 Platelets (Bld) [#/Vol] 109 10*3/uL Low 150-450 [facility] Potassium (Unsp spec) [Mass/ Vol]Ordered By: Chris Winston on 07-09-2024 Potassium [Moles/Vol] 3.7 mmol/L 3.3-5.1 [facility] RBC Auto (Bld) [#/Vol]Ordere d By: Chris Winston on 07-09-2024 RBC (Bld) [#/Vol] 3.63 10*6/uL Low 4.6-6.2 [facility] Serum creatinine measurement (mass/volume)Ordered By: Chris Winston on 07-09-2024 Creatinine [Mass/Vol] 0.64 mg/dL Low 0.70-1.20 [facility] Serum glucose measurement (m ass/volume)Ordered By: Chris Winston on 07-09-2024 Glucose [Mass/Vol] 98 mg/dL 70-99 [facility] Serum or plasma calcium rosalee urement (mass/volume)Ordered By: Chris Winston on 07-09-2024 Calcium [Mass/Vol] 8.6 mg/dL 7.6-11.0 [facility] Serum or plasma urea nitroge n measurement (mass/volume)Ordered By: Chris Winston on 07-09-2024 Urea nitrogen [Mass/Vol] 17 mg/dL 4-19 [facility] Sodium levelOrdered By: Chris Winston on 07-09-2024 Sodium [Moles/Vol] 139 mmol/L 133-145 [facility] White blood cell (WBC) count Ordered By: Chris Winston on 07-09-2024 WBC (Bld) [#/Vol] 3.6 10*3/uL Low 4.4-11.0 [facility] Absolute neutrophil countOrd ered By: Chris Winston on 05-14-2024 Neutrophils (Bld) [#/Vol] 1.4 10*3/uL Low 2.0-7.7 [facility] Automated blood erythrocyte countOrdered By: Chris Winston on 05-14-2024 RBC (Bld) [#/Vol] 3.63 10*6/uL Low 4.6-6.2 [facility] Comment on above: Order Comment: 128-1 Performed By: #### L 500.3400, L501.9910 #### [facility] Laboratory [address] [place], [address] Automated blood hematocrit ( percentage)Ordered By: Chris Winston on 05-14-2024 Hematocrit (Bld) [Volume fraction] 35.6 % Low 40-54 [facility] Comment on above: Order Comment: 128-1 Performed By: #### L 500.3400, L501.9910 #### [facility] Laboratory [address] [place], [address] Automated lymphocyte count a s percentage of total leukocytesOrdered By: Chris Winston on 05-14-2024 Lymphocytes/100 WBC (Bld) 31.3 % Normal 19-41 [facility] Comment on above: Order Comment: 128-1 Performed By: #### L 500.3400, L501.9910 #### [facility] Laboratory [address] [place], [address] Basophil percentageOrdered B y: Chris Winston on 05-14-2024 Basophils/100 WBC (Bld) 0.7 % Normal 0-1 [facility] Comment on above: Order Comment: 128-1 Performed By: #### L 500.3400, L501.9910 #### [facility] Laboratory [address] [place], [address] CBC W/Diff, Automatedon - 0-2024 Absolute Lymph 0.94 X10 3/uL Normal 0.83-4.51 [facility] Comment on above: Order Comment: 128-1 Performed By: #### L 500.3400, L501.9910 #### [facility] Laboratory [address] [place], [address] Absolute Neut 1.4 X10 3/uL Low 2.0-7.7 [facility] Comment on above: Order Comment: 128-1 Performed By: #### L 500.3400, L501.9910 #### [facility] Laboratory [address] [place], [address] IG% 0.300 Normal 0.0-0.9 [facility] Comment on above: Order Comment: 128-1 Result Comment: IG% - Immature Granulocytes (promyelocytes, myelocytes and metamyelocytes) > 1% indicates that a LEFT SHIFT is Present. Performed By: #### L 500.3400, L501.9910 #### [facility] Laboratory [address] [place], [address] Nucleated RBC (Bld) [#/Vol] 0 10*3/uL Normal 0-5 [facility] Comment on above: Order Comment: 128-1 Performed By: #### L 500.3400, L501.9910 #### [facility] Laboratory [address] [place], [address] RDW SD 45.1 fl High 35.1-43.9 [facility] Comment on above: Order Comment: 128-1 Performed By: #### L 500.3400, L501.9910 #### [facility] Laboratory [address] [place], [address] Eosinophil percentageOrdered By: Chris Winston on 05-14-2024 Eosinophils/100 WBC (Bld) 6.3 % High 0-5 [facility] Comment on above: Order Comment: 128-1 Performed By: #### L 500.3400, L501.9910 #### [facility] Laboratory [address] [place], [address] Erythrocyte distribution wid th (RBC) [Ratio]Ordered By: Chris Winston on 05-14-2024 Erythrocyte distribution width (RBC) [Entitic vol] 45.1 fL High 35.1-43.9 [facility] Erythrocyte distribution wid th ratioOrdered By: Chris Winston on 05-14-2024 Erythrocyte distribution width (RBC) [Ratio] 12.5 % Normal 11.6-14.6 [facility] Comment on above: Order Comment: 128-1 Performed By: #### L 500.3400, L501.9910 #### [facility] Laboratory [address] [place], [address] Hemoglobin measurementOrdere d By: Chris Winston on 05-14-2024 Hemoglobin (Bld) [Mass/Vol] 12.4 g/dL Low 13.0-16.5 [facility] Comment on above: Order Comment: 128-1 Performed By: #### L 500.3400, L501.9910 #### [facility] Laboratory [address] [place], [address] Immature granulocytes/100 WB C Auto (Bld)Ordered By: Chris Winston on 05-14-2024 Immature granulocytes/100 WBC (Bld) 0.300 % 0.0-0.9 [facility] Comment on above: IG% - Immature Granu locytes (promyelocytes, myelocytes and metamyelocytes) > 1% indicates that a LEFT SHIFT is Present. Lymphocytes Auto (Unsp spec) [#/Vol]Ordered By: Chris Winston on 05-14-2024 Lymphocytes (Bld) [#/Vol] 0.94 10*3/uL 0.83-4.51 [facility] MCV (mean corpuscular volume ) determinationOrdered By: Chris Winston on 05-14-2024 MCV (RBC) [Entitic vol] 98.1 fL High 80-94 [facility] Comment on above: Order Comment: 128-1 Performed By: #### L 500.3400, L501.9910 #### [facility] Laboratory [address] [place], [address] Mean corpuscular hemoglobin (MCH) determinationOrdered By: Chris Winston on 05-14-2024 MCH (RBC) [Entitic mass] 34.2 pg High 27.0-32.0 [facility] Comment on above: Order Comment: 128-1 Performed By: #### L 500.3400, L501.9910 #### [facility] Laboratory [address] [place], [address] Mean corpuscular hemoglobin concentration (MCHC) determinationOrdered By: Chris Winston on 05-14-2024 MCHC (RBC) [Mass/Vol] 34.8 g/dL Normal 32-36 [facility] Comment on above: Order Comment: 128-1 Performed By: #### L 500.3400, L501.9910 #### [facility] Laboratory [address] [place], [address] Mean platelet volume determi nationOrdered By: Chris Winston on 05-14-2024 Platelet mean volume (Bld) [Entitic vol] 10.0 fL Normal 6.2-12.0 [facility] Comment on above: Order Comment: 128-1 Performed By: #### L 500.3400, L501.9910 #### [facility] Laboratory [address] [place], [address] Monocyte percentageOrdered B y: Chris Winston on 05-14-2024 Monocytes/100 WBC (Bld) 13.3 % High 0-10 [facility] Comment on above: Order Comment: 128-1 Performed By: #### L 500.3400, L501.9910 #### [facility] Laboratory [address] [place], [address] Neutrophil percentageOrdered By: Chris Winston on 05-14-2024 Neutrophils/100 WBC (Bld) 48.1 % Normal 47-70 [facility] Comment on above: Order Comment: 128-1 Performed By: #### L 500.3400, L501.9910 #### [facility] Laboratory [address] [place], [address] Nucleated red blood cell per centageOrdered By: Chris Winston on 05-14-2024 Nucleated RBC/100 WBC (Bld) [Ratio] 0 % 0-5 [facility] Platelet countOrdered By: Margarita Winston on 05-14-2024 Platelets (Bld) [#/Vol] 98 10*3/uL Low 150-450 [facility] Comment on above: Order Comment: 128-1 Performed By: #### L 500.3400, L501.9910 #### [facility] Laboratory [address] [place], [address] White blood cell (WBC) count Ordered By: Chris Winston on 05-14-2024 WBC (Bld) [#/Vol] 3.0 10*3/uL Low 4.4-11.0 [facility] Comment on above: Order Comment: 128-1 Performed By: #### L 500.3400, L501.9910 #### [facility] Laboratory [address] [place], [address] L3410.9999on 04-16-2024 [facility] Misc. COMMENT Normal . [facility] Comment on above: Order Comment: 124.1 [id number] GABAPENTIN, RED, ROOM TEMP Result Comment: Test Ordered: [id number] Lacosamide Test(s) 701693-Fjgnrahoba was developed and its performance characteristics determined by [facility]. It has not been cleared or approved by the Food and Drug Administration. Lacosamide 13.4 [H ] ug/mL BN Reference Range: 5.0-10.0 Limit of Detection 0.5 Mean plasma concentrations following maintenance dose 200 mg/day 4.99 +/- 2.51 ug/mL 400 mg/day 9.35 +/- 4.22 ug/mL 600 mg/day 12.46 +/- 5.60 ug/mL Performed at: [address] [id number] [employer] Operator: Mindy Parkinson MD, Phone: [phone] Performed at: [address] [id number] [employer] Operator: Cooper Malcolm PhD, Phone: [phone] Performed By: #### L 3410.9998 #### [facility] Laboratory [address] [place], [place], [id number] Trileptal-Oxcarbazepineon OXCARBAZEPINE 28 ug/mL Normal 10-35 [facility] Comment on above: Order Comment: 128-1 Result Comment: This test was developed and its performance characteristics determined by [facility]. It has not been cleared or approved by the Food and Drug Administration. Detection Limit = 1 Performed at: [address] [id number] [employer]: Mindy Parkinson MD, Phone: [phone] Performed By: #### L 500.3400, L501.9910 #### [facility] Laboratory [address] [facility] [place], [place], [id number] Absolute neutrophil countOrd ered By: Chris Winston on 04-10-2024 Neutrophils (Bld) [#/Vol] 1.0 10*3/uL Low 2.0-7.7 [facility] Basic Metabolic Profile (BMP )on 04-10-2024 BUN/CRE 23.4 RATIO High 10-20 [facility] Comment on above: Performed By: #### L 500.3400, L501.9910 #### [facility] Laboratory [address] [place], [place], [id number] CA,Total 8.7 mg/dL Normal 8.5-10.1 [facility] Comment on above: Performed By: #### L 500.3400, L501.9910 #### [facility] Laboratory [address] [place], [address] Chloride [Moles/Vol] 107 mmol/L Normal 98-107 [facility] Comment on above: Performed By: #### L 500.3400, L501.9910 #### [facility] Laboratory [address] [place], [address] CO2 [Moles/Vol] 32.0 mmol/L Normal 21.0-32.0 [facility] Comment on above: Performed By: #### L 500.3400, L501.9910 #### [facility] Laboratory [address] [place], [address] Creatinine [Mass/Vol] 0.68 mg/dL Low 0.70-1.30 [facility] Comment on above: Result Comment: The validity of the calculated GFR GFRAA in patients over 70 years has not been determined. Clinical correlation is essential. Performed By: #### L 500.3400, L501.9910 #### [facility] Laboratory [address] [place], [address] EST GFR - AA 146 mL/min Normal >60 [facility] Comment on above: Result Comment: Afri can [place] GFR Calc Performed By: #### L 500.3400, L501.9910 #### [facility] Laboratory [address] [place], [address] GAP 3 Low 5-15 [facility] Comment on above: Performed By: #### L 500.3400, L501.9910 #### [facility] Laboratory [address] [place], [address] GFR/1.73 sq M.predicted among non-blacks MDRD (S/P/Bld) [Vol rate/Area] 120 mL/min/{1.73_m2} Normal >60 [facility] Comment on above: Result Comment: Non- GFR Calc Performed By: #### L 500.3400, L501.9910 #### [facility] Laboratory [address] [place], [address] Glucose [Mass/Vol] 106 mg/dL Normal 74-106 [facility] Comment on above: Result Comment: Fast ing Glucose result from 100 to 125 mg/dL suggests IMPAIRED HOMEOSTASIS per A.D.A. criteria. Performed By: #### L 500.3400, L501.9910 #### [facility] Laboratory [address] [place], [address] Potassium [Moles/Vol] 3.8 mmol/L Normal 3.5-5.1 [facility] Comment on above: Performed By: #### L 500.3400, L501.9910 #### [facility] Laboratory [address] [place], [address] Sodium [Moles/Vol] 142 mmol/L Normal 136-145 [facility] Comment on above: Performed By: #### L 500.3400, L501.9910 #### [facility] Laboratory [address] [place], [address] Urea nitrogen [Mass/Vol] 16 mg/dL Normal 7-18 [facility] Comment on above: Performed By: #### L 500.3400, L501.9910 #### [facility] Laboratory [address] [place], [address] Basophil percentageOrdered B y: Chris Winston on 04-10-2024 Basophils/100 WBC (Bld) 0.5 % 0-1 [facility] Blood urea nitrogen (BUN)/cr eatinine ratioOrdered By: Chris Winston on 04-10-2024 Urea nitrogen/Creatinine [Mass ratio] 23.4 mg/mg High 10-20 [facility] CBC W/Diff, Automatedon - Absolute Lymph 0.69 X10 3/uL Low 0.83-4.51 [facility] Comment on above: Order Comment: 128-1 Performed By: #### L 500.3400, L501.9910 #### [facility] Laboratory [address] [place], [address] Absolute Neut 1.0 X10 3/uL Low 2.0-7.7 [facility] Comment on above: Order Comment: 128-1 Performed By: #### L 500.3400, L501.9910 #### [facility] Laboratory [address] [place], [address] Basophils/100 WBC (Bld) 0.5 % Normal 0-1 [facility] Comment on above: Order Comment: 128-1 Performed By: #### L 500.3400, L501.9910 #### [facility] Laboratory [address] [place], [address] Eosinophils/100 WBC (Bld) 5.3 % High 0-5 [facility] Comment on above: Order Comment: 128-1 Performed By: #### L 500.3400, L501.9910 #### [facility] Laboratory [address] [place], [address] Erythrocyte distribution width (RBC) [Ratio] 12.7 % Normal 11.6-14.6 [facility] Comment on above: Order Comment: 128-1 Performed By: #### L 500.3400, L501.9910 #### [facility] Laboratory [address] [place], [address] Hematocrit (Bld) [Volume fraction] 36.9 % Low 40-54 [facility] Comment on above: Order Comment: 128-1 Performed By: #### L 500.3400, L501.9910 #### [facility] Laboratory [address] [place], [address] Hemoglobin (Bld) [Mass/Vol] 12.4 g/dL Low 13.0-16.5 [facility] Comment on above: Order Comment: 128-1 Performed By: #### L 500.3400, L501.9910 #### [facility] Laboratory [address] [place], [address] IG% 0.000 Normal 0.0-0.9 [facility] Comment on above: Order Comment: 128-1 Result Comment: IG% - Immature Granulocytes (promyelocytes, myelocytes and metamyelocytes) > 1% indicates that a LEFT SHIFT is Present. Performed By: #### L 500.3400, L501.9910 #### [facility] Laboratory [address] [place], [address] Lymphocytes/100 WBC (Bld) 33.2 % Normal 19-41 [facility] Comment on above: Order Comment: 128-1 Performed By: #### L 500.3400, L501.9910 #### [facility] Laboratory [address] [place], [address] MCH (RBC) [Entitic mass] 33.4 pg High 27.0-32.0 [facility] Comment on above: Order Comment: 128-1 Performed By: #### L 500.3400, L501.9910 #### [facility] Laboratory [address] [place], [address] MCHC (RBC) [Mass/Vol] 33.6 g/dL Normal 32-36 [facility] Comment on above: Order Comment: 128-1 Performed By: #### L 500.3400, L501.9910 #### [facility] Laboratory [address] [place], [address] MCV (RBC) [Entitic vol] 99.5 fL High 80-94 [facility] Comment on above: Order Comment: 128-1 Performed By: #### L 500.3400, L501.9910 #### [facility] Laboratory [address] [place], [address] Monocytes/100 WBC (Bld) 12.5 % High 0-10 [facility] Comment on above: Order Comment: 128-1 Performed By: #### L 500.3400, L501.9910 #### [facility] Laboratory [address] [place], [address] Neutrophils/100 WBC (Bld) 48.5 % Normal 47-70 [facility] Comment on above: Order Comment: 128-1 Performed By: #### L 500.3400, L501.9910 #### [facility] Laboratory [address] [place], [address] Nucleated RBC (Bld) [#/Vol] 0 10*3/uL Normal 0-5 [facility] Comment on above: Order Comment: 128-1 Performed By: #### L 500.3400, L501.9910 #### [facility] Laboratory [address] [place], [address] Platelet mean volume (Bld) [Entitic vol] 10.2 fL Normal 6.2-12.0 [facility] Comment on above: Order Comment: 128-1 Performed By: #### L 500.3400, L501.9910 #### [facility] Laboratory [address] [place], [address] Platelets (Bld) [#/Vol] 82 10*3/uL Low 150-450 [facility] Comment on above: Order Comment: 128-1 Performed By: #### L 500.3400, L501.9910 #### [facility] Laboratory [address] [place], [address] RBC (Bld) [#/Vol] 3.71 10*6/uL Low 4.6-6.2 [facility] Comment on above: Order Comment: 128-1 Performed By: #### L 500.3400, L501.9910 #### [facility] Laboratory [address] [place], [address] RDW SD 46.8 fl High 35.1-43.9 [facility] Comment on above: Order Comment: 128-1 Performed By: #### L 500.3400, L501.9910 #### [facility] Laboratory [address] [place], [address] WBC (Bld) [#/Vol] 2.1 10*3/uL Low 4.4-11.0 [facility] Comment on above: Order Comment: 128-1 Performed By: #### L 500.3400, L501.9910 #### [facility] Laboratory [address] [place], [address] Carbon dioxide measurementOr dered By: Chris Winston on 04-10-2024 CO2 [Moles/Vol] 32.0 mmol/L 21.0-32.0 [facility] Chloride measurementOrdered By: Chris Winston on 04-10-2024 Chloride [Moles/Vol] 107 mmol/L 98-107 [facility] Eosinophil percentageOrdered By: Chris Winston on 04-10-2024 Eosinophils/100 WBC (Bld) 5.3 % High 0-5 [facility] Erythrocyte distribution wid th (RBC) [Ratio]Ordered By: Chris Winston on 04-10-2024 Erythrocyte distribution width (RBC) [Entitic vol] 46.8 fL High 35.1-43.9 [facility] Erythrocyte distribution wid th ratioOrdered By: Chris Winston on 04-10-2024 Erythrocyte distribution width (RBC) [Ratio] 12.7 % 11.6-14.6 [facility] Estimated glomerular filtrat ion rate (GFR) AmericanOrdered By: Chris Winston on 04-10-2024 Estimated GFR (MDRD) Amer 146 mL/min >60 [facility] Comment on above: GFR Calc Glomerular filtration rate ( GFR) estimationOrdered By: Chris Winston on 04-10-2024 Estimated GFR (MDRD) Non-Af Amer 120 mL/min >60 [facility] Comment on above: Non- GFR Calc Glucose measurementOrdered B y: Chris Winston on 04-10-2024 Glucose [Mass/Vol] 106 mg/dL 74-106 [facility] Comment on above: Fasting Glucose resu lt from 100 to 125 mg/dL suggests IMPAIRED HOMEOSTASIS per A.D.A. criteria. Hematocrit Auto (Bld) [Volum e fraction]Ordered By: Chris Winston on 04-10-2024 Hematocrit (Bld) [Volume fraction] 36.9 % Low 40-54 [facility] Hemoglobin measurementOrdere d By: Chris Winston on 04-10-2024 Hemoglobin (Bld) [Mass/Vol] 12.4 g/dL Low 13.0-16.5 [facility] Immature granulocytes/100 WB C Auto (Bld)Ordered By: Chris Winston on 04-10-2024 Immature granulocytes/100 WBC (Bld) 0.000 % 0.0-0.9 [facility] Comment on above: IG% - Immature Granu locytes (promyelocytes, myelocytes and metamyelocytes) > 1% indicates that a LEFT SHIFT is Present. Lymphocytes Auto (Unsp spec) [#/Vol]Ordered By: Chris Winston on 04-10-2024 Lymphocytes (Bld) [#/Vol] 0.69 10*3/uL Low 0.83-4.51 [facility] Lymphocytes/100 WBC Auto (Un sp spec)Ordered By: Chris Winston on 04-10-2024 Lymphocytes/100 WBC (Bld) 33.2 % 19-41 [facility] MCV (mean corpuscular volume ) determinationOrdered By: Chris Winston on 04-10-2024 MCV (RBC) [Entitic vol] 99.5 fL High 80-94 [facility] Mean corpuscular hemoglobin (MCH) determinationOrdered By: Chris Winston on 04-10-2024 MCH (RBC) [Entitic mass] 33.4 pg High 27.0-32.0 [facility] Mean corpuscular hemoglobin concentration (MCHC) determinationOrdered By: Chris Winston on 04-10-2024 MCHC (RBC) [Mass/Vol] 33.6 g/dL 32-36 [facility] Mean platelet volume determi nationOrdered By: Chris Winston on 04-10-2024 Platelet mean volume (Bld) [Entitic vol] 10.2 fL 6.2-12.0 [facility] Monocyte percentageOrdered B y: Chris Winston on 04-10-2024 Monocytes/100 WBC (Bld) 12.5 % High 0-10 [facility] Neutrophil percentageOrdered By: Chris Winston on 04-10-2024 Neutrophils/100 WBC (Bld) 48.5 % 47-70 [facility] No Panel InformationOrdered By: Chris Winston on 04-10-2024 Miscellaneous Test COMMENT . [facility] Comment on above: Test Ordered: [id number] LacosamideTest(s) 071354-Tjmovpxgneudv developed and its performance characteristicsdetermined by [employer]. It has not been cleared or approvedby the Food and Drug Administration.Lacosamide 13.4 [H ] ug/mL Reference Range: 5.0-10.0 Limit of Detection 0.5 Mean plasma concentrations following maintenance dose 200 mg/day 4.99 +/- 2.51 ug/mL 400 mg/day 9.35 +/- 4.22 ug/mL 600 mg/day 12.46 +/- 5.60 ug/mLPerformed at: [facility] [address] [id number] Director: Mindy Parkinson MD, Phone: [phone] at: [facility] [address] [id number] Director: Cooper Malcolm PhD, Phone: [phone] Nucleated red blood cell per centageOrdered By: Chris Winston on 04-10-2024 Nucleated RBC/100 WBC (Bld) [Ratio] 0 % 0-5 [facility] OXcarbazepine [Mass/Vol]Orde red By: Chris Winston on 04-10-2024 Oxcarbazepine Level 28 ug/mL 10-35 [facility] Comment on above: This test was develo ped and its performance characteristicsdetermined by [employer]. It has not been cleared orapproved by the Food and Drug Administration. Detection Limit = 1Performed at: [facility] [address] [id number] Director: Mindy Parkinson MD, Phone: [phone] Platelet countOrdered By: Margarita Winston on 04-10-2024 Platelets (Bld) [#/Vol] 82 10*3/uL Low 150-450 [facility] Potassium measurementOrdered By: Chris Winston on 04-10-2024 Potassium [Moles/Vol] 3.8 mmol/L 3.5-5.1 [facility] RBC Auto (Bld) [#/Vol]Ordere d By: Chris Winston on 04-10-2024 RBC (Bld) [#/Vol] 3.71 10*6/uL Low 4.6-6.2 [facility] Serum anion gap measurementO rdered By: Chris Winston on 04-10-2024 Anion gap [Moles/Vol] 3 mmol/L Low 5-15 [facility] Serum or plasma calcium rosalee urement (mass/volume)Ordered By: Chris Winston on 04-10-2024 Calcium [Mass/Vol] 8.7 mg/dL 8.5-10.1 [facility] Serum or plasma creatinine m easurement (mass/volume)Ordered By: Chris Winston on 04-10-2024 Creatinine [Mass/Vol] 0.68 mg/dL Low 0.70-1.30 [facility] Comment on above: The validity of the calculated GFR & GFRAA in patients over 70 years has not been determined. Clinical correlation is essential. Serum or plasma urea nitroge n measurement (mass/volume)Ordered By: Chris Winston on 04-10-2024 Urea nitrogen [Mass/Vol] 16 mg/dL 7-18 [facility] Sodium levelOrdered By: Chris Winston on 04-10-2024 Sodium [Moles/Vol] 142 mmol/L 136-145 [facility] White blood cell (WBC) count Ordered By: Chris Winston on 04-10-2024 WBC (Bld) [#/Vol] 2.1 10*3/uL Low 4.4-11.0 [facility] Bilirubin directOrdered By: Chris Winston on 03-13-2024 Bilirubin.direct [Mass/Vol] 0.15 mg/dL 0.00-0.30 [facility] Bilirubin, totalOrdered By: Chris Winston on 03-13-2024 Bilirubin [Mass/Vol] 0.70 mg/dL 0.20-1.00 [facility] Comment on above: For patients on eltr ombopag therapy, use of Dimension [place] TBIL is not recommended. Laboratory - Chemistry and C hemistry - challengeOrdered By: Chris Winston on 03-13-2024 AST [Catalytic activity/Vol] 25 U/L 15-37 [facility] Liver Profileon 03-13-2024 Albumin [Mass/Vol] 2.9 g/dL Low 3.2-5.0 [facility] Comment on above: Order Comment: 124.1 [id number] GABAPENTIN, RED, ROOM TEMP Performed By: #### L 3410.9998 #### [facility] Laboratory [address] [place], [address] ALK P 89 U/L Normal 45-117 [facility] Comment on above: Order Comment: 124.1 [id number] GABAPENTIN, RED, ROOM TEMP Performed By: #### L 3410.9998 #### [facility] Laboratory [address] [place], [address] ALT [Catalytic activity/Vol] 20 U/L Normal 16-61 [facility] Comment on above: Order Comment: 124.1 [id number] GABAPENTIN, RED, ROOM TEMP Performed By: #### L 3410.9998 #### [facility] Laboratory [address] [place], [address] AST [Catalytic activity/Vol] 25 U/L Normal 15-37 [facility] Comment on above: Order Comment: 124.1 [id number] GABAPENTIN, RED, ROOM TEMP Performed By: #### L 3410.9998 #### [facility] Laboratory [address] [place], [address] Bilirubin [Mass/Vol] 0.70 mg/dL Normal 0.20-1.00 [facility] Comment on above: Order Comment: 124.1 [id number] GABAPENTIN, RED, ROOM TEMP Result Comment: For patients on eltrombopag therapy, use of Dimension [place] TBIL is not recommended. Performed By: #### L 3410.9998 #### [facility] Laboratory [address] [place], [address] Bilirubin.direct [Mass/Vol] 0.15 mg/dL Normal 0.00-0.30 [facility] Comment on above: Order Comment: 124.1 [id number] GABAPENTIN, RED, ROOM TEMP Performed By: #### L 3410.9998 #### [facility] Laboratory [address] [place], [place], [id number] [phone] Globulin (S) [Mass/Vol] 3.8 g/dL Normal 2.2-4.2 [facility] Comment on above: Order Comment: 124.1 [id number] GABAPENTIN, RED, ROOM TEMP Performed By: #### L 3410.9998 #### [facility] Laboratory [address] [place], [address] T PROT 6.7 g/dL Normal 6.4-8.2 [facility] Comment on above: Order Comment: 124.1 [id number] GABAPENTIN, RED, ROOM TEMP Performed By: #### L 3410.9998 #### [facility] Laboratory [address] [place], [address] Serum globulin measurementOr dered By: Chris Winston on 03-13-2024 Globulin (S) [Mass/Vol] 3.8 g/dL 2.2-4.2 [facility] Serum or plasma alanine ferraro otransferase (ALT) measurementOrdered By: Chris Winston on 03-13-2024 ALT [Catalytic activity/Vol] 20 U/L 16-61 [facility] Serum or plasma albumin rosalee urement (mass/volume)Ordered By: Chris Winston on 03-13-2024 Albumin [Mass/Vol] 2.9 g/dL Low 3.2-5.0 [facility] Serum or plasma alkaline scott sphatase measurementOrdered By: Chris Winston on 03-13-2024 ALP [Catalytic activity/Vol] 89 U/L 45-117 [facility] Total proteinOrdered By: Michael Winston on 03-13-2024 Protein [Mass/Vol] 6.7 g/dL 6.4-8.2 [facility] Trileptal-Oxcarbazepineon OXCARBAZEPINE 28 ug/mL Normal 10-35 [facility] Comment on above: Order Comment: 124.1 Result Comment: This test was developed and its performance characteristics determined by [employer]. It has not been cleared or approved by the Food and Drug Administration. Detection Limit = 1 Performed at: [facility] [address] [id number] [employer] Operator: Mindy Parkinson MD, Phone: [phone] Performed By: #### L 500.2500, L500.4100, L801.1541, L3800.1700, L100.0100 #### [facility] Laboratory [address] [place], [place], [address] [facility] LAB TEST Normal [facility] Comment on above: Order Comment: 124.1 [id number];NEURONTIN;SERUM;RT [id number];NEURONTIN;SERUM;RT Result Comment: TEST RESULTS LIMITS Gabapentin, Serum 9.3 ug/mL 4.0-16.0 Detection Limit = 1.0 TESTING PERFORMED AT [facility]. ORIGINAL REPORT ON FILE IN LAB CONTAINS ADDITIONAL TEST SITE INFORMATION. Performed By: #### L 500.2500, L500.4100, L801.1541, L3800.1700, L100.0100 #### [facility] Laboratory [address] [place], [address] Basic Metabolic Profile (BMP )on 01-09-2024 BUN/CRE 21.3 RATIO High 10 [facility] Comment on above: Order Comment: 124.1 Performed By: #### L 500.2500, L500.4100, L801.1541, L3800.1700, L100.0100 #### [facility] Laboratory [address] [place], [address] CA,Total 8.7 mg/dL Normal 8.5-10.1 [facility] Comment on above: Order Comment: 124.1 Performed By: #### L 500.2500, L500.4100, L801.1541, L3800.1700, L100.0100 #### [facility] Laboratory [address] [place], [address] Chloride [Moles/Vol] 105 mmol/L Normal 98-107 [facility] Comment on above: Order Comment: 124.1 Performed By: #### L 500.2500, L500.4100, L801.1541, L3800.1700, L100.0100 #### [facility] Laboratory [address] [place], [address] CO2 [Moles/Vol] 29.0 mmol/L Normal 21.0-32.0 [facility] Comment on above: Order Comment: 124.1 Performed By: #### L 500.2500, L500.4100, L801.1541, L3800.1700, L100.0100 #### [facility] Laboratory [address] [place], [address] Creatinine [Mass/Vol] 0.61 mg/dL Low 0.70-1.30 [facility] Comment on above: Order Comment: 124.1 Result Comment: The validity of the calculated GFR GFRAA in patients over 70 years has not been determined. Clinical correlation is essential. Performed By: #### L 500.2500, L500.4100, L801.1541, L3800.1700, L100.0100 #### [facility] Laboratory [address] [place], [address] EST GFR - AA 167 mL/min Normal >60 [facility] Comment on above: Order Comment: 124.1 Result Comment: Afri can [place] GFR Calc Performed By: #### L 500.2500, L500.4100, L801.1541, L3800.1700, L100.0100 #### [facility] Laboratory [address] [place], [address] GAP 6 Normal 5-15 [facility] Comment on above: Order Comment: 124.1 Performed By: #### L 500.2500, L500.4100, L801.1541, L3800.1700, L100.0100 #### [facility] Laboratory [address] [place], [address] GFR/1.73 sq M.predicted among non-blacks MDRD (S/P/Bld) [Vol rate/Area] 138 mL/min/{1.73_m2} Normal >60 [facility] Comment on above: Order Comment: 124.1 Result Comment: Non- GFR Calc Performed By: #### L 500.2500, L500.4100, L801.1541, L3800.1700, L100.0100 #### [facility] Laboratory [address] [place], [address] Glucose [Mass/Vol] 82 mg/dL Normal 74-106 [facility] Comment on above: Order Comment: 124.1 Performed By: #### L 500.2500, L500.4100, L801.1541, L3800.1700, L100.0100 #### [facility] Laboratory [address] [place], [address] Potassium [Moles/Vol] 3.6 mmol/L Normal 3.5-5.1 [facility] Comment on above: Order Comment: 124.1 Performed By: #### L 500.2500, L500.4100, L801.1541, L3800.1700, L100.0100 #### [facility] Laboratory [address] [place], [address] Sodium [Moles/Vol] 140 mmol/L Normal 136-145 [facility] Comment on above: Order Comment: 124.1 Performed By: #### L 500.2500, L500.4100, L801.1541, L3800.1700, L100.0100 #### [facility] Laboratory [address] [place], [address] Urea nitrogen [Mass/Vol] 13 mg/dL Normal 7-18 [facility] Comment on above: Order Comment: 124.1 Performed By: #### L 500.2500, L500.4100, L801.1541, L3800.1700, L100.0100 #### [facility] Laboratory [address] [place], [address] CBC W/Diff, Automatedon 10-0 -2023 Absolute Lymph 0.81 X10 3/uL Low 0.83-4.51 [facility] Comment on above: Order Comment: 124.1 Performed By: #### L 500.2500, L500.4100, L801.1541, L3800.1700, L100.0100 #### [facility] Laboratory [address] [place], [address] Absolute Neut 1.2 X10 3/uL Low 2.0-7.7 [facility] Comment on above: Order Comment: 124.1 Performed By: #### L 500.2500, L500.4100, L801.1541, L3800.1700, L100.0100 #### [facility] Laboratory [address] [place], [address] Basophils/100 WBC (Bld) 0.8 % Normal 0-1 [facility] Comment on above: Order Comment: 124.1 Performed By: #### L 500.2500, L500.4100, L801.1541, L3800.1700, L100.0100 #### [facility] Laboratory [address] [place], [address] Eosinophils/100 WBC (Bld) 5.8 % High 0-5 [facility] Comment on above: Order Comment: 124.1 Performed By: #### L 500.2500, L500.4100, L801.1541, L3800.1700, L100.0100 #### [facility] Laboratory [address] [place], [address] Erythrocyte distribution width (RBC) [Ratio] 12.2 % Normal 11.6-14.6 [facility] Comment on above: Order Comment: 124.1 Performed By: #### L 500.2500, L500.4100, L801.1541, L3800.1700, L100.0100 #### [facility] Laboratory [address] [place], [address] Hematocrit (Bld) [Volume fraction] 39.0 % Low 40-54 [facility] Comment on above: Order Comment: 124.1 Performed By: #### L 500.2500, L500.4100, L801.1541, L3800.1700, L100.0100 #### [facility] Laboratory [address] [place], [address] Hemoglobin (Bld) [Mass/Vol] 13.3 g/dL Normal 13.0-16.5 [facility] Comment on above: Order Comment: 124.1 Performed By: #### L 500.2500, L500.4100, L801.1541, L3800.1700, L100.0100 #### [facility] Laboratory [address] [place], [address] IG% 0.000 Normal 0.0-0.9 [facility] Comment on above: Order Comment: 124.1 Result Comment: IG% - Immature Granulocytes (promyelocytes, myelocytes and metamyelocytes) > 1% indicates that a LEFT SHIFT is Present. Performed By: #### L 500.2500, L500.4100, L801.1541, L3800.1700, L100.0100 #### [facility] Laboratory [address] [place], [address] Lymphocytes/100 WBC (Bld) 33.8 % Normal 19-41 [facility] Comment on above: Order Comment: 124.1 Performed By: #### L 500.2500, L500.4100, L801.1541, L3800.1700, L100.0100 #### [facility] Laboratory [address] [place], [address] MCH (RBC) [Entitic mass] 33.7 pg High 27.0-32.0 [facility] Comment on above: Order Comment: 124.1 Performed By: #### L 500.2500, L500.4100, L801.1541, L3800.1700, L100.0100 #### [facility] Laboratory [address] [place], [address] MCHC (RBC) [Mass/Vol] 34.1 g/dL Normal 32-36 [facility] Comment on above: Order Comment: 124.1 Performed By: #### L 500.2500, L500.4100, L801.1541, L3800.1700, L100.0100 #### [facility] Laboratory [address] [place], [address] MCV (RBC) [Entitic vol] 98.7 fL High 80-94 [facility] Comment on above: Order Comment: 124.1 Performed By: #### L 500.2500, L500.4100, L801.1541, L3800.1700, L100.0100 #### [facility] Laboratory [address] [place], [address] Monocytes/100 WBC (Bld) 11.7 % High 0-10 [facility] Comment on above: Order Comment: 124.1 Performed By: #### L 500.2500, L500.4100, L801.1541, L3800.1700, L100.0100 #### [facility] Laboratory [address] [place], [address] Neutrophils/100 WBC (Bld) 47.9 % Normal 47-70 [facility] Comment on above: Order Comment: 124.1 Performed By: #### L 500.2500, L500.4100, L801.1541, L3800.1700, L100.0100 #### [facility] Laboratory [address] [place], [address] Nucleated RBC (Bld) [#/Vol] 0 10*3/uL Normal 0-5 [facility] Comment on above: Order Comment: 124.1 Performed By: #### L 500.2500, L500.4100, L801.1541, L3800.1700, L100.0100 #### [facility] Laboratory [address] [place], [address] Platelet mean volume (Bld) [Entitic vol] 10.1 fL Normal 6.2-12.0 [facility] Comment on above: Order Comment: 124.1 Performed By: #### L 500.2500, L500.4100, L801.1541, L3800.1700, L100.0100 #### [facility] Laboratory [address] [place], [address] Platelets (Bld) [#/Vol] 86 10*3/uL Low 150-450 [facility] Comment on above: Order Comment: 124.1 Performed By: #### L 500.2500, L500.4100, L801.1541, L3800.1700, L100.0100 #### [facility] Laboratory [address] [place], [address] RBC (Bld) [#/Vol] 3.95 10*6/uL Low 4.6-6.2 [facility] Comment on above: Order Comment: 124.1 Performed By: #### L 500.2500, L500.4100, L801.1541, L3800.1700, L100.0100 #### [facility] Laboratory [address] [place], [address] RDW SD 45.0 fl High 35.1-43.9 [facility] Comment on above: Order Comment: 124.1 Performed By: #### L 500.2500, L500.4100, L801.1541, L3800.1700, L100.0100 #### [facility] Laboratory [address] [place], [address] WBC (Bld) [#/Vol] 2.4 10*3/uL Low 4.4-11.0 [facility] Comment on above: Order Comment: 124.1 Performed By: #### L 500.2500, L500.4100, L801.1541, L3800.1700, L100.0100 #### [facility] Laboratory [address] [place], [address] Lipid Profileon 01-09-2024 Cholesterol [Mass/Vol] 168 mg/dL Normal 200 [facility] Comment on above: Order Comment: 124.1 Result Comment: <200 mg/dL Desirable 200-240 mg/dL Borderline >240 mg/dL High Risk Performed By: #### L 500.2500, L500.4100, L801.1541, L3800.1700, L100.0100 #### [facility] Laboratory [address] [place], [address] Cholesterol in HDL [Mass/Vol] 55 mg/dL Normal [facility] Comment on above: Order Comment: 124.1 Result Comment: The drugs N-Acetylcysteine and Metamizole may falsely depress this assay. Reference Range HDL <40 mg/dL Low HDL Cholesterol HDL >or= 60 mg/dL High HDL Cholesterol Performed By: #### L 500.2500, L500.4100, L801.1541, L3800.1700, L100.0100 #### [facility] Laboratory [address] [place], [address] Cholesterol in LDL [Mass/Vol] 99 mg/dL Normal 0-130 [facility] Comment on above: Order Comment: 124.1 Performed By: #### L 500.2500, L500.4100, L801.1541, L3800.1700, L100.0100 #### [facility] Laboratory [address] [place], [address] Cholesterol in VLDL [Mass/Vol] 14 mg/dL Normal 5-40 [facility] Comment on above: Order Comment: 124.1 Performed By: #### L 500.2500, L500.4100, L801.1541, L3800.1700, L100.0100 #### [facility] Laboratory [address] [place], [address] Triglyceride [Mass/Vol] 70 mg/dL Normal [facility] Comment on above: Order Comment: 124.1 Result Comment: The drugs N-Acetylcysteine and Metamizole may falsely depress this assay. Serum Triglycerides Reference Interval Normal <150 mg/dL Borderline high 150 - 199 mg/dL High 200 - 499 mg/dL Very High > or = 500 mg/dL Performed By: #### L 500.2500, L500.4100, L801.1541, L3800.1700, L100.0100 #### [facility] Laboratory [address] [place], [address] Miscellaneous Lab Procedureo n 10-24-2023 [facility] LAB TEST Normal [facility] Comment on above: Order Comment: 128-1 Result Comment: TEST RESULTS LIMITS Lacosamide, 11.1 High ug/mL 5.0-10.0 Limit of Detection 0.5 Mean plasma concentrations following maintenance dose 200 mg/day 4.99 +/- 2.51 ug/mL 400 mg/day 9.35 +/- 4.22 ug/mL 600 mg/day 12.46 +/- 5.60 ug/mL TESTING PERFORMED AT [facility]. ORIGINAL REPORT ON FILE IN LAB CONTAINS ADDITIONAL TEST SITE INFORMATION. Performed By: #### L 500.3400, L501.9910 #### [facility] Laboratory [address] [place], [address] Trileptal-Oxcarbazepineon OXCARBAZEPINE 23 ug/mL Normal 10-35 [facility] Comment on above: Order Comment: 128-1 Result Comment: This test was developed and its performance characteristics determined by [employer]. It has not been cleared or approved by the Food and Drug Administration. Detection Limit = 1 Performed at: [facility] [address] [id number] [employer] Operator: Mindy Parkinson MD, Phone: [phone] Performed By: #### L 500.3400, L501.9910 #### [facility] Laboratory [address] [place], [address] Basic Metabolic Profile (BMP )on 10-10-2023 BUN/CRE 26.2 RATIO High 10-20 [facility] Comment on above: Order Comment: 128-1 Performed By: #### L 500.3400, L501.9910 #### [facility] Laboratory [address] [place], [address] CA,Total 8.7 mg/dL Normal 8.5-10.1 [facility] Comment on above: Order Comment: 128-1 Performed By: #### L 500.3400, L501.9910 #### [facility] Laboratory [address] [place], [address] Chloride [Moles/Vol] 108 mmol/L High 98-107 [facility] Comment on above: Order Comment: 128-1 Performed By: #### L 500.3400, L501.9910 #### [facility] Laboratory [address] [place], [address] CO2 [Moles/Vol] 30.0 mmol/L Normal 21.0-32.0 [facility] Comment on above: Order Comment: 128-1 Performed By: #### L 500.3400, L501.9910 #### [facility] Laboratory [address] [place], [address] Creatinine [Mass/Vol] 0.69 mg/dL Low 0.70-1.30 [facility] Comment on above: Order Comment: 128-1 Result Comment: The validity of the calculated GFR GFRAA in patients over 70 years has not been determined. Clinical correlation is essential. Performed By: #### L 500.3400, L501.9910 #### [facility] Laboratory [address] [place], [address] EST GFR - AA 145 mL/min Normal >60 [facility] Comment on above: Order Comment: 128-1 Result Comment: Afri can [place] GFR Calc Performed By: #### L 500.3400, L501.9910 #### [facility] Laboratory [address] [place], [address] GAP 4 Low 5-15 [facility] Comment on above: Order Comment: 128-1 Performed By: #### L 500.3400, L501.9910 #### [facility] Laboratory [address] [place], [address] GFR/1.73 sq M.predicted among non-blacks MDRD (S/P/Bld) [Vol rate/Area] 120 mL/min/{1.73_m2} Normal >60 [facility] Comment on above: Order Comment: 128-1 Result Comment: Non- GFR Calc Performed By: #### L 500.3400, L501.9910 #### [facility] Laboratory [address] [place], [address] Glucose [Mass/Vol] 98 mg/dL Normal 74-106 [facility] Comment on above: Order Comment: 128-1 Performed By: #### L 500.3400, L501.9910 #### [facility] Laboratory [address] [place], [address] Potassium [Moles/Vol] 3.6 mmol/L Normal 3.5-5.1 [facility] Comment on above: Order Comment: 128-1 Performed By: #### L 500.3400, L501.9910 #### [facility] Laboratory [address] [place], [address] Sodium [Moles/Vol] 142 mmol/L Normal 136-145 [facility] Comment on above: Order Comment: 128-1 Performed By: #### L 500.3400, L501.9910 #### [facility] Laboratory [address] [place], [address] Urea nitrogen [Mass/Vol] 18 mg/dL Normal 7-18 [facility] Comment on above: Order Comment: 128-1 Performed By: #### L 500.3400, L501.9910 #### [facility] Laboratory [address] [place], [address] CBC W/Diff, Automatedon 07-0 8-2024 Absolute Lymph 0.96 X10 3/uL Normal 0.83-4.51 [facility] Comment on above: Order Comment: 128-1 Performed By: #### L 500.3400, L501.9910 #### [facility] Laboratory [address] [place], [address] Absolute Neut 1.4 X10 3/uL Low 2.0-7.7 [facility] Comment on above: Order Comment: 128-1 Performed By: #### L 500.3400, L501.9910 #### [facility] Laboratory [address] [place], [address] Basophils/100 WBC (Bld) 1.0 % Normal 0-1 [facility] Comment on above: Order Comment: 128-1 Performed By: #### L 500.3400, L501.9910 #### [facility] Laboratory [address] [place], [address] Eosinophils/100 WBC (Bld) 12.7 % High 0-5 [facility] Comment on above: Order Comment: 128-1 Performed By: #### L 500.3400, L501.9910 #### [facility] Laboratory [address] [place], [address] Erythrocyte distribution width (RBC) [Ratio] 12.5 % Normal 11.6-14.6 [facility] Comment on above: Order Comment: 128-1 Performed By: #### L 500.3400, L501.9910 #### [facility] [address] [place], [address] Hematocrit (Bld) [Volume fraction] 37.1 % Low 40-54 [facility] Comment on above: Order Comment: 128-1 Performed By: #### L 500.3400, L501.9910 #### [facility] [address] [place], [address] Hemoglobin (Bld) [Mass/Vol] 12.5 g/dL Low 13.0-16.5 [facility] Comment on above: Order Comment: 128-1 Performed By: #### L 500.3400, L501.9910 #### [facility] [address] [place], [address] IG% 0.300 Normal 0.0-0.9 [facility] Comment on above: Order Comment: 128-1 Result Comment: IG% - Immature Granulocytes (promyelocytes, myelocytes and metamyelocytes) > 1% indicates that a LEFT SHIFT is Present. Performed By: #### L 500.3400, L501.9910 #### [facility] [address] [place], [address] Lymphocytes/100 WBC (Bld) 31.2 % Normal 19-41 [facility] Comment on above: Order Comment: 128-1 Performed By: #### L 500.3400, L501.9910 #### [facility] [address] [place], [address] MCH (RBC) [Entitic mass] 33.6 pg High 27.0-32.0 [facility] Comment on above: Order Comment: 128-1 Performed By: #### L 500.3400, L501.9910 #### [facility] [address] [place], [address] MCHC (RBC) [Mass/Vol] 33.7 g/dL Normal 32-36 [facility] Comment on above: Order Comment: 128-1 Performed By: #### L 500.3400, L501.9910 #### [facility] [address] [place], [address] MCV (RBC) [Entitic vol] 99.7 fL High 80-94 [facility] Comment on above: Order Comment: 128-1 Performed By: #### L 500.3400, L501.9910 #### [facility] [address] [place], [address] Monocytes/100 WBC (Bld) 10.1 % High 0-10 [facility] Comment on above: Order Comment: 128-1 Performed By: #### L 500.3400, L501.9910 #### [facility] [address] [place], [address] Neutrophils/100 WBC (Bld) 44.7 % Low 47-70 [facility] Comment on above: Order Comment: 128-1 Performed By: #### L 500.3400, L501.9910 #### [facility] [address] [place], [address] Nucleated RBC (Bld) [#/Vol] 0 10*3/uL Normal 0-5 [facility] Comment on above: Order Comment: 128-1 Performed By: #### L 500.3400, L501.9910 #### [facility] [address] [place], [address] Platelet mean volume (Bld) [Entitic vol] 10.2 fL Normal 6.2-12.0 [facility] Comment on above: Order Comment: 128-1 Performed By: #### L 500.3400, L501.9910 #### [facility] [address] [place], [address] Platelets (Bld) [#/Vol] 88 10*3/uL Low 150-450 [facility] Comment on above: Order Comment: 128-1 Performed By: #### L 500.3400, L501.9910 #### [facility] [address] [place], [address] RBC (Bld) [#/Vol] 3.72 10*6/uL Low 4.6-6.2 [facility] Comment on above: Order Comment: 128-1 Performed By: #### L 500.3400, L501.9910 #### [facility] [address] [place], [address] RDW SD 45.6 fl High 35.1-43.9 [facility] Comment on above: Order Comment: 128-1 Performed By: #### L 500.3400, L501.9910 #### [facility] [address] [place], [address] WBC (Bld) [#/Vol] 3.1 10*3/uL Low 4.4-11.0 [facility] Comment on above: Order Comment: 128-1 Performed By: #### L 500.3400, L501.9910 #### [facility] [address] [place], [address] Liver Profileon 09-08-2023 Albumin [Mass/Vol] 2.4 g/dL Low 3.2-5.0 [facility] Comment on above: Order Comment: 128-1 Performed By: #### L 500.3400, L501.9910 #### [facility] [address] [place], [address] ALK P 69 U/L Normal 45-117 [facility] Comment on above: Order Comment: 128-1 Performed By: #### L 500.3400, L501.9910 #### [facility] [address] [place], [address] ALT [Catalytic activity/Vol] 18 U/L Normal 16-61 [facility] Comment on above: Order Comment: 128-1 Performed By: #### L 500.3400, L501.9910 #### [facility] [address] [place], [address] AST [Catalytic activity/Vol] 25 U/L Normal 15-37 [facility] Comment on above: Order Comment: 128-1 Performed By: #### L 500.3400, L501.9910 #### [facility] [address] [place], [address] Bilirubin [Mass/Vol] 0.30 mg/dL Normal 0.20-1.00 [facility] Comment on above: Order Comment: 128-1 Result Comment: For patients on eltrombopag therapy, use of Dimension [place] TBIL is not recommended. Performed By: #### L 500.3400, L501.9910 #### [facility] [address] [place], [address] Bilirubin.direct [Mass/Vol] 0.15 mg/dL Normal 0.00-0.30 [facility] Comment on above: Order Comment: 128-1 Performed By: #### L 500.3400, L501.9910 #### [facility] [address] [place], [address] Globulin (S) [Mass/Vol] 3.4 g/dL Normal 2.2-4.2 [facility] Comment on above: Order Comment: 128-1 Performed By: #### L 500.3400, L501.9910 #### [facility] [address] [place], [address] T PROT 5.8 g/dL Low 6.4-8.2 [facility] Comment on above: Order Comment: 128-1 Performed By: #### L 500.3400, L501.9910 #### [facility] [address] [place], [address] PSA,Total - Annual Screenon 09-08-2023 PSA,TOT SCREEN 0.26 ng/mL Normal 0.00-4.00 [facility] Comment on above: Order Comment: 128-1 Result Comment: This test was performed using the TPSA assay method for the [employer] chemistry system. Values obtained with different assay methods cannot be used interchangably. When changing PSA assays in the course of monitoring a patient, additional sequential testing should be carried out to confirm baseline values. Performed By: #### L 500.3400, L501.9910 #### [facility] [address] [place], [address] Absolute lymphocyte countOrd ered By: Chris Winston on 07-11-2023 Lymphocytes Auto (Unsp spec) [#/Vol] 0.99 10*3/uL 0.83-4.51 [facility] Automated lymphocyte count a s percentage of total leukocytesOrdered By: Chris Winston on 07-11-2023 Lymphocytes/100 WBC Auto (Unsp spec) 32.5 % 19-41 [facility] Basophil percentageOrdered B y: Chris Winston on 07-11-2023 Basophils/100 WBC (Bld) 1.0 % 0-1 [facility] Chloride [Moles/Vol] 104 mmol/L 98-107 [facility] Eosinophils/100 WBC (Bld) 8.2 % 0-5 [facility] Glucose [Mass/Vol] 90 mg/dL 74-106 [facility] Hemoglobin (Bld) [Mass/Vol] 12.3 g/dL 13.0-16.5 [facility] Monocytes/100 WBC (Bld) 12.5 % 0-10 [facility] Neutrophils (Bld) [#/Vol] 1.4 10*3/uL 2.0-7.7 [facility] Neutrophils/100 WBC (Bld) 45.5 % 47-70 [facility] Potassium [Moles/Vol] 3.4 mmol/L 3.5-5.1 [facility] Sodium [Moles/Vol] 138 mmol/L 136-145 [facility] WBC (Bld) [#/Vol] 3.1 10*3/uL 4.4-11.0 [facility] Determination of erythrocyte mean corpuscular volume (MCV)Ordered By: Chris Winston on 07-11-2023 MCV (RBC) [Entitic vol] 97.3 fL 80-94 [facility] Erythrocyte distribution wid th ratioOrdered By: Chris Winston on 07-11-2023 Erythrocyte distribution width (RBC) [Ratio] 12.6 % 11.6-14.6 [facility] Erythrocyte distribution wid th standard deviationOrdered By: Chris Winston on 07-11-2023 Erythrocyte distribution width (RBC) [Entitic vol] 45.5 fL 35.1-43.9 [facility] Hematocrit Auto (Bld) [Volum e fraction]Ordered By: Chris Winston on 07-11-2023 Hematocrit (Bld) [Volume fraction] 35.7 % 40-54 [facility] Immature granulocytes/100 WB C Auto (Bld)Ordered By: Chris Winston on 07-11-2023 Immature granulocytes/100 WBC (Bld) 0.300 % 0.0-0.9 [facility] Comment on above: IG% - Immature Granu locytes (promyelocytes, myelocytes and metamyelocytes) > 1% indicates that a LEFT SHIFT is Present. Laboratory - Chemistry and C hemistry - challengeOrdered By: Chris Winston on 07-11-2023 CO2 [Moles/Vol] 29.0 mmol/L 21.0-32.0 [facility] Urea nitrogen/Creatinine [Mass ratio] 28.9 mg/mg 10-20 [facility] Laboratory - Hematology and Cell countsOrdered By: Chris Winston on 07-11-2023 MCH (RBC) [Entitic mass] 33.5 pg 27.0-32.0 [facility] MCHC (RBC) [Mass/Vol] 34.5 g/dL 32-36 [facility] Nucleated RBC/100 WBC (Bld) [Ratio] 0 % 0-5 [facility] Platelet mean volume (Bld) [Entitic vol] 9.7 fL 6.2-12.0 [facility] Platelets (Bld) [#/Vol] 92 10*3/uL 150-450 [facility] No Panel InformationOrdered By: Chris Winston on 07-11-2023 Estimated GFR (MDRD) Amer 163 mL/min >60 [facility] Comment on above: GFR Calc Estimated GFR (MDRD) Non-Af Amer 135 mL/min >60 [facility] Comment on above: Non- GFR Calc Miscellaneous Test See comment [facility] Comment on above: TEST RESULTS LIMITSG abapentin (Neurontin), Serum Gabapentin, Serum 8.3 ug/mL 4.0-16.0 Detection Limit = 1.0 TESTING PERFORMED AT [facility]. ORIGINAL REPORT ON FILE IN LAB CONTAINS ADDITIONAL TEST SITE INFORMATION. RBC Auto (Bld) [#/Vol]Ordere d By: Chris Winston on 07-11-2023 RBC (Bld) [#/Vol] 3.67 10*6/uL 4.6-6.2 [facility] Serum or plasma calcium rosalee urement (mass/volume)Ordered By: Chris Winston on 07-11-2023 Calcium [Mass/Vol] 8.3 mg/dL 8.5-10.1 [facility] Serum or plasma creatinine m easurement (mass/volume)Ordered By: Chris Winston on 07-11-2023 Creatinine [Mass/Vol] 0.62 mg/dL 0.70-1.30 [facility] Comment on above: The validity of the calculated GFR & GFRAA in patients over 70 years has not been determined. Clinical correlation is essential. Serum or plasma oxcarbazepin e measurement (mass/volume)Ordered By: Chris Winston on 07-11-2023 OXcarbazepine [Mass/Vol] 26 ug/mL 10-35 [facility] Comment on above: This test was develo ped and its performance characteristicsdetermined by [employer]. It has not been cleared orapproved by the Food and Drug Administration. Detection Limit = 1Performed at: [facility] [address] [id number] Director: Mindy Pakrinson MD, Phone: [phone] Serum or plasma urea nitroge n measurement (mass/volume)Ordered By: Chris Winston on 07-11-2023 Urea nitrogen [Mass/Vol] 18 mg/dL 7-18 [facility] Thin prep Papanicolaou smear with manual screeningOrdered By: Chris Winston on 07-11-2023 Thin prep Papanicolaou smear with manual screening 5 5-15 [facility] Absolute lymphocyte countOrd ered By: Chris Winston on 04-11-2023 Lymphocytes Auto (Unsp spec) [#/Vol] 0.92 10*3/uL 0.83-4.51 [facility] Basophil percentageOrdered B y: Chris Winston on 04-11-2023 Basophils/100 WBC (Bld) 0.6 % 0-1 [facility] Chloride [Moles/Vol] 105 mmol/L 98-107 [facility] Eosinophils/100 WBC (Bld) 6.8 % 0-5 [facility] Glucose [Mass/Vol] 115 mg/dL 74-106 [facility] Comment on above: Fasting Glucose resu lt from 100 to 125 mg/dL suggests IMPAIRED HOMEOSTASIS per A.D.A. criteria. Neutrophils (Bld) [#/Vol] 1.6 10*3/uL 2.0-7.7 [facility] Neutrophils/100 WBC (Bld) 51.0 % 47-70 [facility] Potassium [Moles/Vol] 3.6 mmol/L 3.5-5.1 [facility] Sodium [Moles/Vol] 140 mmol/L 136-145 [facility] WBC (Bld) [#/Vol] 3.2 10*3/uL 4.4-11.0 [facility] Blood erythrocytes count (nu mber/volume)Ordered By: Chris Winston on 04-11-2023 RBC (Bld) [#/Vol] 3.61 10*6/uL 4.6-6.2 [facility] Blood hemoglobin measurement (mass/volume)Ordered By: Chris Winston on 04-11-2023 Hemoglobin (Bld) [Mass/Vol] 12.4 g/dL 13.0-16.5 [facility] Blood lymphocytes/100 leukoc ytesOrdered By: Chris Winston on 04-11-2023 Lymphocytes/100 WBC (Bld) 28.6 % 19-41 [facility] Blood monocytes/100 leukocyt esOrdered By: Chris Winston on 04-11-2023 Monocytes/100 WBC (Bld) 13.0 % 0-10 [facility] Blood platelet mean volumeOr dered By: Chris Winston on 04-11-2023 Platelet mean volume (Bld) [Entitic vol] 10.0 fL 6.2-12.0 [facility] Determination of erythrocyte mean corpuscular volume (MCV)Ordered By: Chris Winston on 04-11-2023 MCV (RBC) [Entitic vol] 101.9 fL 80-94 [facility] Hematocrit Auto (Bld) [Volum e fraction]Ordered By: Chris Winston on 04-11-2023 Hematocrit (Bld) [Volume fraction] 36.8 % 40-54 [facility] Laboratory - Chemistry and C hemistry - challengeOrdered By: Chris Winston on 04-11-2023 CO2 [Moles/Vol] 34.0 mmol/L 21.0-32.0 [facility] Urea nitrogen/Creatinine [Mass ratio] 18.4 mg/mg 10-20 [facility] Laboratory - Hematology and Cell countsOrdered By: Chris Winston on 04-11-2023 Erythrocyte distribution width (RBC) [Entitic vol] 49.4 fL 35.1-43.9 [facility] Erythrocyte distribution width (RBC) [Ratio] 13.1 % 11.6-14.6 [facility] Immature granulocytes/100 WBC (Bld) 0.000 % 0.0-0.9 [facility] Comment on above: IG% - Immature Granu locytes (promyelocytes, myelocytes and metamyelocytes) > 1% indicates that a LEFT SHIFT is Present. MCH (RBC) [Entitic mass] 34.3 pg 27.0-32.0 [facility] Nucleated RBC/100 WBC (Bld) [Ratio] 0 % 0-5 [facility] MCHC Auto (RBC) [Mass/Vol]Or dered By: Chris Winston on 04-11-2023 MCHC (RBC) [Mass/Vol] 33.7 g/dL 32-36 [facility] No Panel InformationOrdered By: Chris Winston on 04-11-2023 Estimated GFR (MDRD) Amer 141 mL/min >60 [facility] Comment on above: GFR Calc Estimated GFR (MDRD) Non-Af Amer 117 mL/min >60 [facility] Comment on above: Non- GFR Calc Miscellaneous Test See comment [facility] Comment on above: TEST RESULT LIMITSLa cosamide, 13.4 High ug/mL 5.0-10.0 Limit of Detection 0.5 Mean plasma concentrations following maintenance dose 200 mg/day 4.99 +/- 2.51 ug/mL 400 mg/day 9.35 +/- 4.22 ug/mL 600 mg/day 12.46 +/- 5.60 ug/mL TESTING PERFORMED AT [facility]. ORIGINAL REPORT ON FILE IN LAB CONTAINS ADDITIONAL TEST SITE INFORMATION. Platelets bldOrdered By: Michael Winston on 04-11-2023 Platelets (Bld) [#/Vol] 104 10*3/uL 150-450 [facility] Serum or plasma calcium rosalee urement (mass/volume)Ordered By: Chris Winston on 04-11-2023 Calcium [Mass/Vol] 9.0 mg/dL 8.5-10.1 [facility] Serum or plasma creatinine m easurement (mass/volume)Ordered By: Chris Winston on 04-11-2023 Creatinine [Mass/Vol] 0.70 mg/dL 0.70-1.30 [facility] Comment on above: The validity of the calculated GFR & GFRAA in patients over 70 years has not been determined. Clinical correlation is essential. Serum or plasma oxcarbazepin e measurement (mass/volume)Ordered By: Chris Winston on 04-11-2023 OXcarbazepine [Mass/Vol] 27 ug/mL 10-35 [facility] Comment on above: This test was develo ped and its performance characteristicsdetermined by [employer]. It has not been cleared orapproved by the Food and Drug Administration. Detection Limit = 1Performed at: [facility] [employer] [id number] Director: Mindy Parkinson MD, Phone: [phone] Serum or plasma urea nitroge n measurement (mass/volume)Ordered By: Chris Winston on 04-11-2023 Urea nitrogen [Mass/Vol] 13 mg/dL 7-18 [facility] Thin prep Papanicolaou smear with manual screeningOrdered By: Chris Winston on 04-11-2023 Thin prep Papanicolaou smear with manual screening 1 5-15 [facility] Basophil percentageOrdered B y: Chris Winston on 03-08-2023 Bilirubin [Mass/Vol] 0.50 mg/dL 0.20-1.00 [facility] Comment on above: For patients on eltr ombopag therapy, use of Dimension [place] TBIL is not recommended. Protein [Mass/Vol] 6.4 g/dL 6.4-8.2 [facility] Direct bilirubinOrdered By: Chris Winston on 03-08-2023 Bilirubin.direct [Mass/Vol] 0.16 mg/dL 0.00-0.30 [facility] Laboratory - Chemistry and C hemistry - challengeOrdered By: Chris Winston on 03-08-2023 ALP [Catalytic activity/Vol] 82 U/L 45-117 [facility] ALT [Catalytic activity/Vol] 21 U/L 16-61 [facility] Globulin (S) [Mass/Vol] 3.9 g/dL 2.2-4.2 [facility] Serum or plasma albumin rosalee urement (mass/volume)Ordered By: Chris Winston on 03-08-2023 Albumin [Mass/Vol] 2.5 g/dL 3.2-5.0 [facility] Thin prep Papanicolaou smear with manual screeningOrdered By: Chris Winston on 03-08-2023 Thin prep Papanicolaou smear with manual screening 27 U/L 15-37 [facility] Basophil percentageOrdered B y: Chris Winston on 02-16-2023 Chloride [Moles/Vol] 106 mmol/L 98-107 [facility] Potassium [Moles/Vol] 3.6 mmol/L 3.5-5.1 [facility] Sodium [Moles/Vol] 144 mmol/L 136-145 [facility] Laboratory - Chemistry and C hemistry - challengeOrdered By: Chris Winston on 02-16-2023 CO2 [Moles/Vol] 32.0 mmol/L 21.0-32.0 [facility] Thin prep Papanicolaou smear with manual screeningOrdered By: Chris Winston on 02-16-2023 Thin prep Papanicolaou smear with manual screening 6 5-15 [facility] Absolute lymphocyte countOrd ered By: Chris Winston on 01-10-2023 Lymphocytes Auto (Unsp spec) [#/Vol] 1.29 10*3/uL 0.83-4.51 [facility] Basophil percentageOrdered B y: Chris Winston on 01-10-2023 Basophils/100 WBC (Bld) 1.5 % 0-1 [facility] Chloride [Moles/Vol] 106 mmol/L 98-107 [facility] Cholesterol [Mass/Vol] 189 mg/dL <200 [facility] Comment on above: <200 mg/dL Desirable 200-240 mg/dL Borderline >240 mg/dL High Risk Eosinophils/100 WBC (Bld) 11.5 % 0-5 [facility] Glucose [Mass/Vol] 102 mg/dL 74-106 [facility] Comment on above: Fasting Glucose resu lt from 100 to 125 mg/dL suggests IMPAIRED HOMEOSTASIS per A.D.A. criteria. Neutrophils (Bld) [#/Vol] 1.8 10*3/uL 2.0-7.7 [facility] Neutrophils/100 WBC (Bld) 44.7 % 47-70 [facility] Potassium [Moles/Vol] 3.1 mmol/L 3.5-5.1 [facility] Sodium [Moles/Vol] 141 mmol/L 136-145 [facility] Triglyceride [Mass/Vol] 94 mg/dL <199 [facility] Comment on above: The drugs N-Acetylcy steine and Metamizole may falsely depress this assay.Serum Triglycerides Reference Interval Normal <150 mg/dL Borderline high 150 - 199 mg/dL High 200 - 499 mg/dL Very High > or = 500 mg/dL WBC (Bld) [#/Vol] 4.1 10*3/uL 4.4-11.0 [facility] Blood erythrocytes count (nu mber/volume)Ordered By: Chris Winston on 01-10-2023 RBC (Bld) [#/Vol] 3.94 10*6/uL 4.6-6.2 [facility] Blood hemoglobin measurement (mass/volume)Ordered By: Chris Winston on 01-10-2023 Hemoglobin (Bld) [Mass/Vol] 13.3 g/dL 13.0-16.5 [facility] Blood lymphocytes/100 leukoc ytesOrdered By: Chris Winston on 01-10-2023 Lymphocytes/100 WBC (Bld) 31.7 % 19-41 [facility] Blood monocytes/100 leukocyt esOrdered By: Chris Winston on 01-10-2023 Monocytes/100 WBC (Bld) 10.6 % 0-10 [facility] Blood platelet mean volumeOr dered By: Chris Winston on 01-10-2023 Platelet mean volume (Bld) [Entitic vol] 10.6 fL 6.2-12.0 [facility] Determination of erythrocyte mean corpuscular volume (MCV)Ordered By: Chris Winston on 01-10-2023 MCV (RBC) [Entitic vol] 99.0 fL 80-94 [facility] Hematocrit Auto (Bld) [Volum e fraction]Ordered By: Chris Winston on 01-10-2023 Hematocrit (Bld) [Volume fraction] 39.0 % 40-54 [facility] Laboratory - Chemistry and C hemistry - challengeOrdered By: Chris Winston on 01-10-2023 CO2 [Moles/Vol] 28.0 mmol/L 21.0-32.0 [facility] Urea nitrogen/Creatinine [Mass ratio] 12.3 mg/mg 10-20 [facility] [place] Laboratory - Hematology and Cell countsOrdered By: Chris Winston on 01-10-2023 Erythrocyte distribution width (RBC) [Entitic vol] 44.7 fL 35.1-43.9 [facility] Erythrocyte distribution width (RBC) [Ratio] 12.2 % 11.6-14.6 [facility] Immature granulocytes/100 WBC (Bld) 0.000 % 0.0-0.9 [facility] Comment on above: IG% - Immature Granu locytes (promyelocytes, myelocytes and metamyelocytes) > 1% indicates that a LEFT SHIFT is Present. MCH (RBC) [Entitic mass] 33.8 pg 27.0-32.0 [facility] Nucleated RBC/100 WBC (Bld) [Ratio] 0 % 0-5 [facility] MCHC Auto (RBC) [Mass/Vol]Or dered By: Chris Winston on 01-10-2023 MCHC (RBC) [Mass/Vol] 34.1 g/dL 32-36 [facility] No Panel InformationOrdered By: Chris Winston on 01-10-2023 Estimated GFR (MDRD) Amer 136 mL/min >60 [facility] [place] Comment on above: GFR Calc Estimated GFR (MDRD) Non-Af Amer 113 mL/min >60 [facility] [place] Comment on above: Non- GFR Calc Miscellaneous Test See comment [facility] Comment on above: TEST RESULTS LIMITSG abapentin, Serum 5.0 ug/mL 4.0-16.0 Detection Limit = 1.0 TESTING PERFORMED AT [facility]. ORIGINAL REPORT ON FILE IN LAB CONTAINS ADDITIONAL TEST SITE INFORMATION. Platelets bldOrdered By: Michael Winston on 01-10-2023 Platelets (Bld) [#/Vol] 111 10*3/uL 150-450 [facility] Serum or plasma calcium rosalee urement (mass/volume)Ordered By: Chris Winston on 01-10-2023 Calcium [Mass/Vol] 8.2 mg/dL 8.5-10.1 [facility] Serum or plasma cholesterol in HDL measurement (mass/volume)Ordered By: Chris Winston on 01-10-2023 Cholesterol in HDL [Mass/Vol] 52 mg/dL >40 [facility] Comment on above: The drugs N-Acetylcy steine and Metamizole may falsely depress this assay. Reference Range HDL <40 mg/dL Low HDL Cholesterol HDL >or= 60 mg/dL High HDL Cholesterol Serum or plasma cholesterol in VLDL measurement (mass/volume)Ordered By: Chris Winston on 01-10-2023 Cholesterol in VLDL [Mass/Vol] 19 mg/dL 5-40 [facility] Serum or plasma creatinine m easurement (mass/volume)Ordered By: Chris Winston on 01-10-2023 Creatinine [Mass/Vol] 0.73 mg/dL 0.70-1.30 [facility] Comment on above: The validity of the calculated GFR & GFRAA in patients over 70 years has not been determined. Clinical correlation is essential. Serum or plasma low density lipoprotein (LDL) cholesterol measurement (mass/volume)Ordered By: Chris Winston on 01-10-2023 Cholesterol in LDL [Mass/Vol] 118 mg/dL 0-130 [facility] Serum or plasma oxcarbazepin e measurement (mass/volume)Ordered By: Chris Winston on 01-10-2023 OXcarbazepine [Mass/Vol] 27 ug/mL 10-35 [facility] [place] Comment on above: This test was develo ped and its performance characteristicsdetermined by [employer]. It has not been cleared orapproved by the Food and Drug Administration. Detection Limit = 1Performed at: - [facility] [id number] [place], [place] [id number] Director: Mindy Parkinson MD, Phone: [phone] Serum or plasma urea nitroge n measurement (mass/volume)Ordered By: Chris Winston on 01-10-2023 Urea nitrogen [Mass/Vol] 9 mg/dL 7-18 [facility] Thin prep Papanicolaou smear with manual screeningOrdered By: Chris Winston on 01-10-2023 Thin prep Papanicolaou smear with manual screening 7 5-15 [facility] [place] Absolute lymphocyte countOrd ered By: Chris Winston on 10-15-2022 Lymphocytes Auto (Unsp spec) [#/Vol] 1.06 10*3/uL 0.83-4.51 [facility] [place] Basophil percentageOrdered B y: Chris Winston on 10-15-2022 Basophils/100 WBC (Bld) 0.9 % 0-1 [facility] Chloride [Moles/Vol] 103 mmol/L 98-107 [facility] Eosinophils/100 WBC (Bld) 7.2 % 0-5 [facility] Glucose [Mass/Vol] 97 mg/dL 74-106 [facility] Neutrophils (Bld) [#/Vol] 1.6 10*3/uL 2.0-7.7 [facility] Neutrophils/100 WBC (Bld) 46.6 % 47-70 [facility] [place] Potassium [Moles/Vol] 3.3 mmol/L 3.5-5.1 [facility] Sodium [Moles/Vol] 135 mmol/L 136-145 [facility] WBC (Bld) [#/Vol] 3.3 10*3/uL 4.4-11.0 [facility] Blood erythrocytes count (nu mber/volume)Ordered By: Chris Winston on 10-15-2022 RBC (Bld) [#/Vol] 3.54 10*6/uL 4.6-6.2 [facility] Blood hemoglobin measurement (mass/volume)Ordered By: Chris Winston on 10-15-2022 Hemoglobin (Bld) [Mass/Vol] 12.1 g/dL 13.0-16.5 [facility] Blood lymphocytes/100 leukoc ytesOrdered By: Chris Winston on 10-15-2022 Lymphocytes/100 WBC (Bld) 31.8 % 19-41 [facility] Blood monocytes/100 leukocyt esOrdered By: Chris Winston on 10-15-2022 Monocytes/100 WBC (Bld) 13.2 % 0-10 [facility] Blood platelet mean volumeOr dered By: Chris Winston on 10-15-2022 Platelet mean volume (Bld) [Entitic vol] 10.0 fL 6.2-12.0 [facility] Determination of erythrocyte mean corpuscular volume (MCV)Ordered By: Chris Winston on 10-15-2022 MCV (RBC) [Entitic vol] 97.2 fL 80-94 [facility] Hematocrit Auto (Bld) [Volum e fraction]Ordered By: Chris Winston on 10-15-2022 Hematocrit (Bld) [Volume fraction] 34.4 % 40-54 [facility] [place] Laboratory - Chemistry and C hemistry - challengeOrdered By: Chris Winston on 10-15-2022 CO2 [Moles/Vol] 28.0 mmol/L 21.0-32.0 [facility] [place] Urea nitrogen/Creatinine [Mass ratio] 14.5 mg/mg 10-20 [facility] [place] Laboratory - Hematology and Cell countsOrdered By: Chris Winston on 10-15-2022 Erythrocyte distribution width (RBC) [Entitic vol] 44.5 fL 35.1-43.9 [facility] [place] Erythrocyte distribution width (RBC) [Ratio] 12.4 % 11.6-14.6 [facility] [place] Immature granulocytes/100 WBC (Bld) 0.300 % 0.0-0.9 [facility] Comment on above: IG% - Immature Granu locytes (promyelocytes, myelocytes and metamyelocytes) > 1% indicates that a LEFT SHIFT is Present. MCH (RBC) [Entitic mass] 34.2 pg 27.0-32.0 [facility] Nucleated RBC/100 WBC (Bld) [Ratio] 0 % 0-5 [facility] MCHC Auto (RBC) [Mass/Vol]Or dered By: Chris Winston on 10-15-2022 MCHC (RBC) [Mass/Vol] 35.2 g/dL 32-36 [facility] No Panel InformationOrdered By: Chris Winston on 10-15-2022 Estimated GFR (MDRD) Amer 189 mL/min >60 [facility] Comment on above: GFR Calc Estimated GFR (MDRD) Non-Af Amer 156 mL/min >60 [facility] Comment on above: Non- GFR Calc Miscellaneous Test See comment [facility] Comment on above: TEST RESULT LIMITSLa cosamide, 12.6 High ug/mL 5.0-10.0 Limit of Detection 0.5 Mean plasma concentrations following maintenance dose 200 mg/day 4.99 +/- 2.51 ug/mL 400 mg/day 9.35 +/- 4.22 ug/mL 600 mg/day 12.46 +/- 5.60 ug/mL TESTING PERFORMED AT [facility]. ORIGINAL REPORT ON FILE IN LAB CONTAINS ADDITIONAL TEST SITE INFORMATION. Platelets bldOrdered By: Michael Winston on 10-15-2022 Platelets (Bld) [#/Vol] 100 10*3/uL 150-450 [facility] Serum or plasma calcium rosalee urement (mass/volume)Ordered By: Chris Winston on 10-15-2022 Calcium [Mass/Vol] 8.2 mg/dL 8.5-10.1 [facility] Serum or plasma creatinine m easurement (mass/volume)Ordered By: Chris Winston on 10-15-2022 Creatinine [Mass/Vol] 0.55 mg/dL 0.70-1.30 [facility] Comment on above: The validity of the calculated GFR & GFRAA in patients over 70 years has not been determined. Clinical correlation is essential. Serum or plasma oxcarbazepin e measurement (mass/volume)Ordered By: Chris Winston on 10-15-2022 OXcarbazepine [Mass/Vol] 26 ug/mL 10-35 [facility] Comment on above: This test was develo ped and its performance characteristicsdetermined by [employer]. It has not been cleared orapproved by the Food and Drug Administration. Detection Limit = 1Performed at: [facility] [place], [place] [id number] Director: Mindy Parkinson MD, Phone: [phone] Serum or plasma urea nitroge n measurement (mass/volume)Ordered By: Chris Winston on 10-15-2022 Urea nitrogen [Mass/Vol] 8 mg/dL 7-18 [facility] Thin prep Papanicolaou smear with manual screeningOrdered By: Chris Winston on 10-15-2022 Thin prep Papanicolaou smear with manual screening 4 5-15 [facility] Basophil percentageOrdered B y: Chris Winston on 09-07-2022 Bilirubin [Mass/Vol] 0.40 mg/dL 0.20-1.00 [facility] Comment on above: For patients on eltr ombopag therapy, use of Dimension [place] TBIL is not recommended. Protein [Mass/Vol] 6.2 g/dL 6.4-8.2 [facility] Direct bilirubinOrdered By: Chris Winston on 09-07-2022 Bilirubin.direct [Mass/Vol] 0.14 mg/dL 0.00-0.30 [facility] [place] Laboratory - Chemistry and C hemistry - challengeOrdered By: Chris Winston on 09-07-2022 ALP [Catalytic activity/Vol] 74 U/L 45-117 [facility] ALT [Catalytic activity/Vol] 19 U/L 16-61 [facility] Globulin (S) [Mass/Vol] 3.6 g/dL 2.2-4.2 [facility] No Panel InformationOrdered By: Chris Winston on 09-07-2022 Prostate Specific Antigen Screen 0.33 ng/mL 0.00-4.00 [facility] Comment on above: This test was perfor med using the TPSA assay method for the[employer] chemistry system. Values obtained with differentassay methods cannot be used interchangably.When changing PSA assays in the course of monitoring apatient, additional sequential testing should be carriedout to confirm baseline values. Serum or plasma albumin rosalee urement (mass/volume)Ordered By: Chris Winston on 09-07-2022 Albumin [Mass/Vol] 2.6 g/dL 3.2-5.0 [facility] Thin prep Papanicolaou smear with manual screeningOrdered By: Chris Winston on 09-07-2022 Thin prep Papanicolaou smear with manual screening 23 U/L 15-37 [facility] Basophil percentageOrdered B y: Chris Winston on 07-06-2022 Chloride [Moles/Vol] 105 mmol/L 98-107 [facility] Glucose [Mass/Vol] 110 mg/dL 74-106 [facility] Comment on above: Fasting Glucose resu lt from 100 to 125 mg/dL suggests IMPAIRED HOMEOSTASIS per A.D.A. criteria. Potassium [Moles/Vol] 3.7 mmol/L 3.5-5.1 [facility] Sodium [Moles/Vol] 138 mmol/L 136-145 [facility] WBC (Bld) [#/Vol] 2.9 10*3/uL 4.4-11.0 [facility] Blood erythrocytes count (nu mber/volume)Ordered By: Chris Winston on 07-06-2022 RBC (Bld) [#/Vol] 3.82 10*6/uL 4.6-6.2 [facility] Blood hemoglobin measurement (mass/volume)Ordered By: Chris Winston on 07-06-2022 Hemoglobin (Bld) [Mass/Vol] 12.9 g/dL 13.0-16.5 [facility] Blood platelet mean volumeOr dered By: Chris Winston on 07-06-2022 Platelet mean volume (Bld) [Entitic vol] 10.1 fL 6.2-12.0 [facility] Determination of erythrocyte mean corpuscular volume (MCV)Ordered By: Chris Winston on 07-06-2022 MCV (RBC) [Entitic vol] 99.2 fL 80-94 [facility] Hematocrit Auto (Bld) [Volum e fraction]Ordered By: Chris Winston on 07-06-2022 Hematocrit (Bld) [Volume fraction] 37.9 % 40-54 [facility] [place] Laboratory - Chemistry and C hemistry - challengeOrdered By: Chris Winston on 07-06-2022 CO2 [Moles/Vol] 29.0 mmol/L 21.0-32.0 [facility] Urea nitrogen/Creatinine [Mass ratio] 15.2 mg/mg 10-20 [facility] Laboratory - Hematology and Cell countsOrdered By: Chris Winston on 07-06-2022 Erythrocyte distribution width (RBC) [Entitic vol] 45.8 fL 35.1-43.9 [facility] Erythrocyte distribution width (RBC) [Ratio] 12.7 % 11.6-14.6 [facility] MCH (RBC) [Entitic mass] 33.8 pg 27.0-32.0 [facility] MCHC Auto (RBC) [Mass/Vol]Or dered By: Chris Winston on 07-06-2022 MCHC (RBC) [Mass/Vol] 34.0 g/dL 32-36 [facility] No Panel InformationOrdered By: Chris Winston on 07-06-2022 Estimated GFR (MDRD) Amer 154 mL/min >60 [facility] Comment on above: GFR Calc Estimated GFR (MDRD) Non-Af Amer 127 mL/min >60 [facility] Comment on above: Non- GFR Calc Miscellaneous Test See comment [facility] Comment on above: TEST RESULTS LIMITSG abapentin (Neurontin), SerumGabapentin, Serum 8.0 ug/mL 4.0-16.0 Detection Limit = 1.0 TESTING PERFORMED AT [facility]. ORIGINAL REPORT ON FILE IN LAB CONTAINS ADDITIONAL TEST SITE INFORMATION. Platelets bldOrdered By: Michael Winston on 07-06-2022 Platelets (Bld) [#/Vol] 99 10*3/uL 150-450 [facility] Serum or plasma calcium rosalee urement (mass/volume)Ordered By: Chris Winston on 07-06-2022 Calcium [Mass/Vol] 8.7 mg/dL 8.5-10.1 [facility] Serum or plasma creatinine m easurement (mass/volume)Ordered By: Chris Winston on 07-06-2022 Creatinine [Mass/Vol] 0.66 mg/dL 0.70-1.30 [facility] Comment on above: The validity of the calculated GFR & GFRAA in patients over 70 years has not been determined. Clinical correlation is essential. Serum or plasma oxcarbazepin e measurement (mass/volume)Ordered By: Chris Winston on 07-06-2022 OXcarbazepine [Mass/Vol] 29 ug/mL 10-35 [facility] Comment on above: This test was develo ped and its performance characteristicsdetermined by [employer]. It has not been cleared orapproved by the Food and Drug Administration. Detection Limit = 1Performed at: [facility] [employer] [id number] Director: Mindy Parkinson MD, Phone: [phone] Serum or plasma urea nitroge n measurement (mass/volume)Ordered By: Chris Winston on 07-06-2022 Urea nitrogen [Mass/Vol] 10 mg/dL 7-18 [facility] Thin prep Papanicolaou smear with manual screeningOrdered By: Chris Winston on 07-06-2022 Thin prep Papanicolaou smear with manual screening 4 5-15 [facility] Basophil percentageOrdered B y: Chris Winston on 04-12-2022 Chloride [Moles/Vol] 106 mmol/L 98-107 [facility] Glucose [Mass/Vol] 108 mg/dL 74-106 [facility] Comment on above: Fasting Glucose resu lt from 100 to 125 mg/dL suggests IMPAIRED HOMEOSTASIS per A.D.A. criteria. Potassium [Moles/Vol] 3.4 mmol/L 3.5-5.1 [facility] Sodium [Moles/Vol] 142 mmol/L 136-145 [facility] Laboratory - Chemistry and C hemistry - challengeOrdered By: Chris Winston on 04-12-2022 CO2 [Moles/Vol] 29.0 mmol/L 21.0-32.0 [facility] Urea nitrogen/Creatinine [Mass ratio] 19.2 mg/mg 10 [facility] No Panel InformationOrdered By: Chris Winston on 04-12-2022 Estimated GFR (MDRD) Amer 148 mL/min >60 [facility] Comment on above: GFR Calc Estimated GFR (MDRD) Non-Af Amer 123 mL/min >60 [facility] Comment on above: Non- GFR Calc Miscellaneous Test See comment [facility] Comment on above: TEST RESULT LIMITSLa cosamide, 10.4 High ug/mL 5.0-10.0 Limit of Detection 0.5 Mean plasma concentrations following maintenance dose 200 mg/day 4.99 +/- 2.51 ug/mL 400 mg/day 9.35 +/- 4.22 ug/mL 600 mg/day 12.46 +/- 5.60 ug/mL TESTING PERFORMED AT [facility]. ORIGINAL REPORT ON FILE IN LAB CONTAINS ADDITIONAL TEST SITE INFORMATION. Serum or plasma calcium rosalee urement (mass/volume)Ordered By: Chris Winston on 04-12-2022 Calcium [Mass/Vol] 8.4 mg/dL 8.5-10.1 [facility] Serum or plasma creatinine m easurement (mass/volume)Ordered By: Chris Winston on 04-12-2022 Creatinine [Mass/Vol] 0.68 mg/dL 0.70-1.30 [facility] Comment on above: The validity of the calculated GFR & GFRAA in patients over 70 years has not been determined. Clinical correlation is essential. Serum or plasma oxcarbazepin e measurement (mass/volume)Ordered By: Chris Winston on 04-12-2022 OXcarbazepine [Mass/Vol] 23 ug/mL [facility] Comment on above: This test was develo ped and its performance characteristicsdetermined by [employer]. It has not been cleared orapproved by the Food and Drug Administration. Detection Limit = 1Performed at: [facility] [employer] [id number] Director: Mindy Parkinson MD, Phone: [phone] Serum or plasma urea nitroge n measurement (mass/volume)Ordered By: Chris Winston on 04-12-2022 Urea nitrogen [Mass/Vol] 13 mg/dL 7-18 [facility] Thin prep Papanicolaou smear with manual screeningOrdered By: Chris Winston on 04-12-2022 Thin prep Papanicolaou smear with manual screening 7 5-15 [facility] Basophil percentageon 2021 Bilirubin [Mass/Vol] 0.40 mg/dL 0.20-1.00 [facility] Work Phone: Comment on above: For patients on eltr ombopag therapy, use of Dimension [place] TBIL is not recommended. Protein [Mass/Vol] 6.0 g/dL 6.4-8.2 [facility] Work Phone: Direct bilirubinon Bilirubin.direct [Mass/Vol] 0.09 mg/dL 0.00-0.30 [facility] Work Phone: Laboratory - Chemistry and C hemistry - challengeon 03-09-2022 ALP [Catalytic activity/Vol] 65 U/L 45-117 [facility] Work Phone: ALT [Catalytic activity/Vol] 16 U/L 16-61 [facility] Work Phone: Globulin (S) [Mass/Vol] 3.5 g/dL 2.2-4.2 [facility] Work Phone: Serum or plasma albumin rosalee urement (mass/volume)on 03-09-2022 Albumin [Mass/Vol] 2.5 g/dL 3.2-5.0 [facility] Work Phone: Thin prep Papanicolaou smear with manual screeningon 03-09-2022 Thin prep Papanicolaou smear with manual screening 18 U/L 15-37 [facility] Work Phone: Basophil percentageon 2021 Chloride [Moles/Vol] 104 mmol/L 98-107 [facility] Work Phone: Cholesterol [Mass/Vol] 176 mg/dL <200 [facility] Work Phone: Comment on above: <200 mg/dL Desirable 200-240 mg/dL Borderline >240 mg/dL High Risk Glucose [Mass/Vol] 103 mg/dL 74-106 [facility] Work Phone: Comment on above: Fasting Glucose resu lt from 100 to 125 mg/dL suggests IMPAIRED HOMEOSTASIS per A.D.A. criteria. Potassium [Moles/Vol] 3.3 mmol/L 3.5-5.1 [facility] Work Phone: Sodium [Moles/Vol] 140 mmol/L 136-145 [facility] Work Phone: Triglyceride [Mass/Vol] 76 mg/dL <199 [facility] Work Phone: Comment on above: The drugs N-Acetylcy steine and Metamizole may falsely depress this assay.Serum Triglycerides Reference Interval Normal <150 mg/dL Borderline high 150 - 199 mg/dL High 200 - 499 mg/dL Very High > or = 500 mg/dL WBC (Bld) [#/Vol] 2.9 10*3/uL 4.4-11.0 [facility] Work Phone: Blood erythrocytes count (nu mber/volume)on 01-07-2022 RBC (Bld) [#/Vol] 3.71 10*6/uL 4.6-6.2 [facility] Work Phone: Blood hemoglobin measurement (mass/volume)on 01-07-2022 Hemoglobin (Bld) [Mass/Vol] 12.6 g/dL 13.0-16.5 [facility] Work Phone: Blood platelet mean volumeon 01-07-2022 Platelet mean volume (Bld) [Entitic vol] 10.4 fL 6.2-12.0 [facility] Work Phone: Determination of erythrocyte mean corpuscular volume (MCV)on 01-07-2022 MCV (RBC) [Entitic vol] 97.3 fL 80-94 [facility] Work Phone: Hematocrit Auto (Bld) [Volum e fraction]on 01-07-2022 Hematocrit (Bld) [Volume fraction] 36.1 % 40-54 [facility] Work Phone: Laboratory - Chemistry and C hemistry - challengeon 01-07-2022 CO2 [Moles/Vol] 30.0 mmol/L 21.0-32.0 [facility] Work Phone: Urea nitrogen/Creatinine [Mass ratio] 17.4 mg/mg 10-20 [facility] Work Phone: Laboratory - Hematology and Cell countson 01-07-2022 Erythrocyte distribution width (RBC) [Entitic vol] 45.3 fL 35.1-43.9 [facility] Work Phone: Erythrocyte distribution width (RBC) [Ratio] 12.7 % 11.6-14.6 [facility] Work Phone: MCH (RBC) [Entitic mass] 34.0 pg 27.0-32.0 [facility] Work Phone: MCHC Auto (RBC) [Mass/Vol]on 01-07-2022 MCHC (RBC) [Mass/Vol] 34.9 g/dL 32-36 [facility] Work Phone: No Panel Informationon 01-07 Estimated GFR (MDRD) Amer 180 mL/min >60 [facility] Work Phone: Comment on above: GFR Calc Estimated GFR (MDRD) Non-Af Amer 148 mL/min >60 [facility] Work Phone: Comment on above: Non- GFR Calc Miscellaneous Test See comment [facility] Work Phone: Comment on above: TEST RESULT LIMITSGa bapentin, Serum 8.1 ug/mL 4.0-16.0 Detection Limit = 1.0 TESTING PERFORMED AT [facility]. ORIGINAL REPORT ON FILE IN LAB CONTAINS ADDITIONAL TEST SITE INFORMATION. Platelets bldon 01-07-2022 Platelets (Bld) [#/Vol] 95 10*3/uL 150-450 [facility] [place] Work Phone: Serum or plasma calcium rosalee urement (mass/volume)on 01-07-2022 Calcium [Mass/Vol] 8.7 mg/dL 8.5-10.1 [facility] Work Phone: Serum or plasma cholesterol in HDL measurement (mass/volume)on 01-07-2022 Cholesterol in HDL [Mass/Vol] 48 mg/dL >40 [facility] [place] Work Phone: Comment on above: The drugs N-Acetylcy steine and Metamizole may falsely depress this assay. Reference Range HDL <40 mg/dL Low HDL Cholesterol HDL >or= 60 mg/dL High HDL Cholesterol Serum or plasma cholesterol in VLDL measurement (mass/volume)on 01-07-2022 Cholesterol in VLDL [Mass/Vol] 15 mg/dL 5-40 [facility] [place] Work Phone: Serum or plasma creatinine m easurement (mass/volume)on 01-07-2022 Creatinine [Mass/Vol] 0.58 mg/dL 0.70-1.30 [facility] Work Phone: Comment on above: The validity of the calculated GFR & GFRAA in patients over 70 years has not been determined. Clinical correlation is essential. Serum or plasma low density lipoprotein (LDL) cholesterol measurement (mass/volume)on 01-07-2022 Cholesterol in LDL [Mass/Vol] 113 mg/dL 0-130 [facility] [place] Work Phone: Serum or plasma oxcarbazepin e measurement (mass/volume)on 01-07-2022 OXcarbazepine [Mass/Vol] 25 ug/mL 10-35 [facility] [place] Work Phone: Comment on above: This test was develo ped and its performance characteristicsdetermined by [employer]. It has not been cleared orapproved by the Food and Drug Administration. Detection Limit = 1Performed at: [facility] [id number] [place], [place] [id number] Director: Mindy Parkinson MD, Phone: [phone] Serum or plasma urea nitroge n measurement (mass/volume)on 01-07-2022 Urea nitrogen [Mass/Vol] 10 mg/dL 7-18 [facility] [place] Work Phone: Thin prep Papanicolaou smear with manual screeningon 01-07-2022 Thin prep Papanicolaou smear with manual screening 6 5-15 [facility] [place] Work Phone: Basophil percentageon 2021 Chloride [Moles/Vol] 104 mmol/L 98-107 [facility] Work Phone: Glucose [Mass/Vol] 95 mg/dL 74-106 [facility] Work Phone: Potassium [Moles/Vol] 3.6 mmol/L 3.5-5.1 [facility] Work Phone: Sodium [Moles/Vol] 137 mmol/L 136-145 [facility] Work Phone: Laboratory - Chemistry and C hemistry - challengeon 10-07-2021 CO2 [Moles/Vol] 29.0 mmol/L 21.0-32.0 [facility] [place] Work Phone: Urea nitrogen/Creatinine [Mass ratio] 13.3 mg/mg 10-20 [facility] [place] Work Phone: No Panel Informationon 10-07 Estimated GFR (MDRD) Amer 170 mL/min >60 [facility] [place] Work Phone: Comment on above: GFR Calc Estimated GFR (MDRD) Non-Af Amer 141 mL/min >60 [facility] [place] Work Phone: Comment on above: Non- GFR Calc Serum or plasma calcium rosalee urement (mass/volume)on 10-07-2021 Calcium [Mass/Vol] 8.4 mg/dL 8.5-10.1 [facility] Work Phone: Serum or plasma creatinine m easurement (mass/volume)on 10-07-2021 Creatinine [Mass/Vol] 0.60 mg/dL 0.70-1.30 [facility] Work Phone: Comment on above: The validity of the calculated GFR & GFRAA in patients over 70 years has not been determined. Clinical correlation is essential. Serum or plasma oxcarbazepin e measurement (mass/volume)on 10-07-2021 OXcarbazepine [Mass/Vol] 24 ug/mL 10-35 [facility] [place] Work Phone: Comment on above: This test was develo ped and its performance characteristicsdetermined by [employer]. It has not been cleared orapproved by the Food and Drug Administration. Detection Limit = 1Performed at: [facility] [address] [id number] Director: Mindy Parkinson MD, Phone: [phone] Serum or plasma urea nitroge n measurement (mass/volume)on 10-07-2021 Urea nitrogen [Mass/Vol] 8 mg/dL 7-18 [facility] [place] Work Phone: Thin prep Papanicolaou smear with manual screeningon 10-07-2021 Thin prep Papanicolaou smear with manual screening 4 5-15 [facility] [place] Work Phone: Basophil percentageon 2021 Bilirubin [Mass/Vol] 0.50 mg/dL 0.20-1.00 [facility] Work Phone: Comment on above: For patients on eltr ombopag therapy, use of Dimension [place] TBIL is not recommended. Protein [Mass/Vol] 6.4 g/dL 6.4-8.2 [facility] Work Phone: Direct bilirubinon 2 Bilirubin.direct [Mass/Vol] 0.12 mg/dL 0.00-0.30 [facility] [place] Work Phone: Laboratory - Chemistry and C hemistry - challengeon 09-07-2021 ALP [Catalytic activity/Vol] 66 U/L 45-117 [facility] [place] Work Phone: ALT [Catalytic activity/Vol] 19 U/L 16-61 [facility] [place] Work Phone: Globulin (S) [Mass/Vol] 3.7 g/dL 2.2-4.2 [facility] [place] Work Phone: No Panel Informationon 09-07 Prostate Specific Antigen Total 0.32 ng/mL 0.0-4.0 [facility] [place] Work Phone: Comment on above: This test was perfor med using the TPSA assay method for [employer] system. Values obtained with differentassay methods cannot be used interchangably.When changing PSA assays in the course of monitoring apatient, additional sequential testing should be carriedout to confirm baseline values. Serum or plasma albumin rosalee urement (mass/volume)on 09-07-2021 Albumin [Mass/Vol] 2.7 g/dL 3.2-5.0 [facility] Work Phone: Thin prep Papanicolaou smear with manual screeningon 09-07-2021 Thin prep Papanicolaou smear with manual screening 19 U/L 15-37 [facility] [place] Work Phone: Basophil percentageon 2021 Chloride [Moles/Vol] 102 mmol/L 98-107 [facility] Work Phone: Glucose [Mass/Vol] 104 mg/dL 74-106 [facility] Work Phone: Comment on above: Fasting Glucose resu lt from 100 to 125 mg/dL suggests IMPAIRED HOMEOSTASIS per A.D.A. criteria. Potassium [Moles/Vol] 3.5 mmol/L 3.5-5.[address] [facility] Work Phone: Sodium [Moles/Vol] 137 mmol/L 136-145 [facility] Work Phone: WBC (Bld) [#/Vol] 2.5 10*3/uL 4.4-11.0 [facility] Work Phone: Blood erythrocytes count (nu mber/volume)on 08-07-2021 RBC (Bld) [#/Vol] 3.82 10*6/uL 4.6-6.2 [facility]: Blood hemoglobin measurement (mass/volume)on 08-07-2021 Hemoglobin (Bld) [Mass/Vol] 13.0 g/dL 13.0-16.5 [facility] [place] Work Phone: Blood platelet mean volumeon 08-07-2021 Platelet mean volume (Bld) [Entitic vol] 9.8 fL 6.2-12.0 [facility] [place] Work Phone: Determination of erythrocyte mean corpuscular volume (MCV)on 08-07-2021 MCV (RBC) [Entitic vol] 98.2 fL 80-94 [facility] [place] Work Phone: Hematocrit Auto (Bld) [Volum e fraction]on 08-07-2021 Hematocrit (Bld) [Volume fraction] 37.5 % 40-54 [facility] [place] Work Phone: [phone] Laboratory - Chemistry and C hemistry - challengeon 08-07-2021 CO2 [Moles/Vol] 30.0 mmol/L 21.0-32.0 [facility] [place] Work Phone: Urea nitrogen/Creatinine [Mass ratio] 15.1 mg/mg 10-20 [facility] [place] Work Phone: Laboratory - Hematology and Cell countson 08-07-2021 Erythrocyte distribution width (RBC) [Entitic vol] 44.3 fL 35.1-43.9 [facility] [place] Work Phone: Erythrocyte distribution width (RBC) [Ratio] 12.2 % 11.6-14.6 [facility] [place] Work Phone: MCH (RBC) [Entitic mass] 34.0 pg 27.0-32.0 [facility] [place] Work Phone: MCHC Auto (RBC) [Mass/Vol]on 08-07-2021 MCHC (RBC) [Mass/Vol] 34.7 g/dL 32-36 [facility] Work Phone: No Panel Informationon 08-07 Estimated GFR (MDRD) Amer 152 mL/min >60 [facility] [place] Work Phone: Comment on above: GFR Calc Estimated GFR (MDRD) Non-Af Amer 126 mL/min >60 [facility] [place] Work Phone: Comment on above: Non- GFR Calc Miscellaneous Test See comment [facility] Work Phone: Comment on above: TEST RESULT LIMITSGa bapentin(Neurontin), Serum 4.6 ug/mL 4.0-16.0 Detection Limit = 1.0 TESTING PERFORMED AT [facility]. ORIGINAL REPORT ON FILE IN LAB CONTAINS ADDITIONAL TEST SITE INFORMATION. Platelets bldon 08-07-2021 Platelets (Bld) [#/Vol] 94 10*3/uL 150-450 [facility] [place] Work Phone: Serum or plasma calcium rosalee urement (mass/volume)on 08-07-2021 Calcium [Mass/Vol] 8.2 mg/dL 8.5-10.1 [facility] Work Phone: Serum or plasma creatinine m easurement (mass/volume)on 08-07-2021 Creatinine [Mass/Vol] 0.66 mg/dL 0.70-1.30 [facility] Work Phone: Comment on above: The validity of the calculated GFR & GFRAA in patients over 70 years has not been determined. Clinical correlation is essential. Serum or plasma oxcarbazepin e measurement (mass/volume)on 08-07-2021 OXcarbazepine [Mass/Vol] 22 ug/mL 10-35 [facility] [place] Work Phone: Comment on above: This test was develo ped and its performance characteristicsdetermined by [employer]. It has not been cleared orapproved by the Food and Drug Administration. Detection Limit = 1Performed at: [facility] [employer] [id number] Director: Mindy Parkinson MD, Phone: [phone] Serum or plasma urea nitroge n measurement (mass/volume)on 08-07-2021 Urea nitrogen [Mass/Vol] 10 mg/dL 7-18 [facility] [place] Work Phone: Thin prep Papanicolaou smear with manual screeningon 08-07-2021 Thin prep Papanicolaou smear with manual screening 5 5-15 [facility] [place] Work Phone: Basophil percentageon 2021 Chloride [Moles/Vol] 105 mmol/L 98-107 [facility] Work Phone: Glucose [Mass/Vol] 92 mg/dL 74-106 [facility] Work Phone: Potassium [Moles/Vol] 3.7 mmol/L 3.5-5.1 [facility] Work Phone: Sodium [Moles/Vol] 138 mmol/L 136-145 [facility] Work Phone: WBC (Bld) [#/Vol] 3.0 10*3/uL 4.4-11.0 [facility] Work Phone: Blood erythrocytes count (nu mber/volume)on 07-08-2021 RBC (Bld) [#/Vol] 3.92 10*6/uL 4.6-6.2 [facility] Work Phone: Blood hemoglobin measurement (mass/volume)on 07-08-2021 Hemoglobin (Bld) [Mass/Vol] 13.4 g/dL 13.0-16.5 [facility] [place] Work Phone: Blood platelet mean volumeon 07-08-2021 Platelet mean volume (Bld) [Entitic vol] 10.9 fL 6.2-12.0 [facility] [place] Work Phone: Determination of erythrocyte mean corpuscular volume (MCV)on 07-08-2021 MCV (RBC) [Entitic vol] 98.2 fL 80-94 [facility] [place] Work Phone: Hematocrit Auto (Bld) [Volum e fraction]on 07-08-2021 Hematocrit (Bld) [Volume fraction] 38.5 % 40-54 [facility] [place] Work Phone: Laboratory - Chemistry and C hemistry - challengeon 07-08-2021 CO2 [Moles/Vol] 32.0 mmol/L 21.0-32.0 [facility] [place] Work Phone: Urea nitrogen/Creatinine [Mass ratio] 16.5 mg/mg 10-20 [facility] [place] Work Phone: Laboratory - Hematology and Cell countson 07-08-2021 Erythrocyte distribution width (RBC) [Entitic vol] 44.7 fL 35.1-43.9 [facility] [place] Work Phone: Erythrocyte distribution width (RBC) [Ratio] 12.4 % 11.6-14.6 [facility] [place] Work Phone: [phone] MCH (RBC) [Entitic mass] 34.2 pg 27.0-32.0 [facility] [place] Work Phone: MCHC Auto (RBC) [Mass/Vol]on 07-08-2021 MCHC (RBC) [Mass/Vol] 34.8 g/dL 32-36 [facility] Work Phone: No Panel Informationon 07-08 Estimated GFR (MDRD) Amer 191 mL/min >60 [facility] [place] Work Phone: Comment on above: GFR Calc Estimated GFR (MDRD) Non-Af Amer 158 mL/min >60 [facility] [place] Work Phone: Comment on above: Non- GFR Calc Miscellaneous Test See comment [facility] Work Phone: Comment on above: TEST RESULT LIMITSGa bapentin (Neurontin), Serum Gabapentin, Serum 5.6 ug/mL 4.0-16.0 Detection Limit = 1.0 TESTING PERFORMED AT [facility]. ORIGINAL REPORT ON FILE IN LAB CONTAINS ADDITIONAL TEST SITE INFORMATION. Platelets bldon 07-08-2021 Platelets (Bld) [#/Vol] 81 10*3/uL 150-450 [facility] [place] Work Phone: Serum or plasma calcium rosalee urement (mass/volume)on 07-08-2021 Calcium [Mass/Vol] 8.5 mg/dL 8.5-10.1 [facility] Work Phone: Serum or plasma creatinine m easurement (mass/volume)on 07-08-2021 Creatinine [Mass/Vol] 0.54 mg/dL 0.70-1.30 [facility] Work Phone: Comment on above: The validity of the calculated GFR & GFRAA in patients over 70 years has not been determined. Clinical correlation is essential. Serum or plasma oxcarbazepin e measurement (mass/volume)on 07-08-2021 OXcarbazepine [Mass/Vol] 25 ug/mL 10-35 [facility] [place] Work Phone: Comment on above: This test was develo ped and its performance characteristicsdetermined by [employer]. It has not been cleared orapproved by the Food and Drug Administration. Detection Limit = 1Performed at: [facility] [id number] [place], [place] [id number] Director: Mindy Parkinson MD, Phone: [phone] Serum or plasma urea nitroge n measurement (mass/volume)on 07-08-2021 Urea nitrogen [Mass/Vol] 9 mg/dL 7-18 [facility] [place] Work Phone: Thin prep Papanicolaou smear with manual screeningon 07-08-2021 Thin prep Papanicolaou smear with manual screening 1 5-15 [facility] [place] Work Phone: Laboratory - Microbiology an d Antimicrobial susceptibilityon 04-27-2021 SARS-CoV-2 (COVID-19) RNA CHUCKIE+probe Ql (Unsp spec) Not detected Not Detect [facility] [place] Work Phone: Comment on above: Normal Reference Ran ge: Not DetectedMethod:(RT-PCR) real-time reverse transcriptase PCRLuminex ASAD Instrument*The Food and Drug Administration (FDA) has issued an Emergency Use Authorization (EAU) for the ASAD SARS-CoV-2 Assay for the rapid detection of the virus that causes COVID-19. This test has been validated, but the FDAs independent review of this validation is pending.*Negative results do not preclude infection and should not be used as the sole basis for treatment or patient management. Optimum specimen types and timing for peak viral levels during infections caused by SARS-CoV-2 have not been determined. Collection of multiple specimens from the same patient may be necessary to detect the virus. The possibility of a false negative result should be considered if the patient has clinical presentation or has had recent exposure. Basophil percentageon 2021 Chloride [Moles/Vol] 109 mmol/L 98-[address] [facility] Work Phone: Glucose [Mass/Vol] 109 mg/dL 74-[address] [facility] Work Phone: Comment on above: Fasting Glucose resu lt from 100 to 125 mg/dL suggests IMPAIRED HOMEOSTASIS per A.D.A. criteria.Please note revised GLUCOSE reference range effective 2017. Potassium [Moles/Vol] 4.2 mmol/L 3.5-5.1 [facility] Work Phone: Sodium [Moles/Vol] 141 mmol/L 136-145 [facility] Work Phone: Laboratory - Chemistry and C hemistry - challengeon 04-10-2021 CO2 [Moles/Vol] 28.0 mmol/L 21.0-32.0 [facility] [place] Work Phone: Urea nitrogen/Creatinine [Mass ratio] 24.4 mg/mg 10-20 [facility] [place] Work Phone: No Panel Informationon 04-10 Estimated GFR (MDRD) Amer 180 mL/min >60 [facility] [place] Work Phone: Comment on above: GFR Calc Estimated GFR (MDRD) Non-Af Amer 149 mL/min >60 [facility] [place] Work Phone: Comment on above: Non- GFR Calc Miscellaneous Test See comment [facility] Work Phone: Comment on above: TEST RESULT LIMITSLa cosamide, 12.8 High ug/mL 5.0-10.0 Limit of Detection 0.5 Mean plasma concentrations following maintenance dose 200 mg/day 4.99 +/- 2.51 ug/mL 400 mg/day 9.35 +/- 4.22 ug/mL 600 mg/day 12.46 +/- 5.60 ug/mL TESTING PERFORMED AT [facility]. ORIGINAL REPORT ON FILE IN LAB CONTAINS ADDITIONAL TEST SITE INFORMATION. Serum or plasma calcium rosalee urement (mass/volume)on 04-10-2021 Calcium [Mass/Vol] 8.9 mg/dL 8.5-10.1 [facility] Work Phone: Serum or plasma creatinine m easurement (mass/volume)on 04-10-2021 Creatinine [Mass/Vol] 0.57 mg/dL 0.70-1.30 [facility] Work Phone: Comment on above: The validity of the calculated GFR & GFRAA in patients over 70 years has not been determined. Clinical correlation is essential. Serum or plasma oxcarbazepin e measurement (mass/volume)on 04-10-2021 OXcarbazepine [Mass/Vol] 27 ug/mL [facility] [place] Work Phone: Comment on above: This test was develo ped and its performance characteristicsdetermined by [employer]. It has not been cleared orapproved by the Food and Drug Administration. Detection Limit = 1Performed at: [facility] [employer] [address] [id number] Director: Mindy Parkinson MD, Phone: [phone] Serum or plasma urea nitroge n measurement (mass/volume)on 04-10-2021 Urea nitrogen [Mass/Vol] 14 mg/dL 7-18 [facility] [place] Work Phone: Thin prep Papanicolaou smear with manual screeningon 04-10-2021 Thin prep Papanicolaou smear with manual screening 4 5-15 [facility] [place] Work Phone: Basophil percentageon 2020 Bilirubin [Mass/Vol] 0.40 mg/dL 0.20-1.00 [facility] Work Phone: Comment on above: For patients on eltr ombopag therapy, use of Dimension [place] TBIL is not recommended. Protein [Mass/Vol] 6.5 g/dL 6.4-8.2 [facility] Work Phone: Direct bilirubinon 12-07-202 1 Bilirubin.direct [Mass/Vol] 0.13 mg/dL 0.00-0.30 [facility] [place] Work Phone: Laboratory - Chemistry and C hemistry - challengeon 03-10-2021 ALP [Catalytic activity/Vol] 68 U/L 45-117 [facility] [place] Work Phone: ALT [Catalytic activity/Vol] 19 U/L 16-61 [facility] [place] Work Phone: Globulin (S) [Mass/Vol] 3.9 g/dL 2.2-4.2 [facility] [place] Work Phone: Serum or plasma albumin rosalee urement (mass/volume)on 03-10-2021 Albumin [Mass/Vol] 2.6 g/dL 3.2-5.0 [facility] Work Phone: Thin prep Papanicolaou smear with manual screeningon 03-10-2021 Thin prep Papanicolaou smear with manual screening 21 U/L 15-37 [facility] [place] Work Phone: Encounters Encounter Date Encounter Type Care Provider Facility Start: 07-09-2024 End: 07-09-2024 ambulatory Chris Winston MD [facility] Work Phone: Start: 07-09-2024 End: 07-09-2024 Departed Referred Chris Winston MD [facility] Start: 07-09-2024 End: 07-09-2024 ambulatory Chris BRANNON Facility:[facility] Start: 05-14-2024 ambulatory Crhis BRANNON Facil ity:[facility] Start: 05-14-2024 Registered Referred Chris Winston MD [facility] Start: 04-10-2024 ambulatory Chris Winston OLS Facil ity:[facility] Start: 04-10-2024 Registered Referred Chris Irving [facility] Start: 03-13-2024 End: 03-13-2024 [facility] Start: 03-13-2024 End: 03-13-2024 ambulatory Chris BRANNON Facility:[facility] Start: 01-09-2024 End: 01-09-2024 ambulatory Chris BRANNON Facility:[facility] Start: 10-10-2023 End: 10-10-2023 ambulatory Chris BRANNON Facility:[facility] Start: 09-08-2023 ambulatory Chris BRANNON Facil ity:[facility] Start: 07-11-2023 End: 07-11-2023 ambulatory [facility] Work Phone: Start: 07-11-2023 End: 07-11-2023 Departed Referred [facility] Start: 04-11-2023 End: 04-11-2023 ambulatory [facility] Work Phone: Start: 04-11-2023 End: 04-11-2023 Departed Referred [facility] Start: 03-08-2023 End: 03-08-2023 ambulatory [facility] Work Phone: Start: 03-08-2023 End: 03-08-2023 Departed Referred [facility] Start: 02-16-2023 End: 02-16-2023 ambulatory [facility] Work Phone: Start: 02-16-2023 End: 02-16-2023 Departed Referred [facility] Start: 01-10-2023 End: 01-10-2023 ambulatory [facility] Work Phone: Start: 01-10-2023 End: 01-10-2023 Departed Referred [facility] Start: 10-15-2022 End: 10-15-2022 ambulatory [facility] Work Phone: Start: 10-15-2022 End: 10-15-2022 Departed Referred [facility] Start: 10-15-2022 Registered Referred [facility] Start: 09-07-2022 End: 09-07-2022 ambulatory [facility] Work Phone: Start: 09-07-2022 End: 09-07-2022 Departed Referred [facility] Start: 07-06-2022 End: 07-06-2022 ambulatory [facility] Work Phone: Start: 07-06-2022 End: 07-06-2022 Departed Referred [facility] Start: 04-12-2022 End: 04-12-2022 ambulatory [facility] Work Phone: Start: 04-12-2022 End: 04-12-2022 Departed Referred [facility] Start: 03-09-2022 End: 03-09-2022 ambulatory [facility] Work Phone: Start: 03-09-2022 End: 03-09-2022 Departed Referred [facility] Start: 01-07-2022 End: 01-07-2022 ambulatory [facility] Work Phone: Start: 01-07-2022 End: 01-07-2022 Departed Referred [facility] Start: 10-07-2021 Registered Referred [facility] Start: 09-07-2021 End: 09-07-2021 Departed Referred [facility] Start: 08-07-2021 End: 08-07-2021 Departed Referred [facility] Start: 07-08-2021 End: 07-08-2021 Departed Referred [facility] Start: 07-08-2021 Registered Referred [facility] Start: 04-27-2021 End: 04-27-2021 Departed Referred [facility] Start: 04-27-2021 Registered Referred [facility] Start: 04-10-2021 End: 04-10-2021 Departed Referred [facility] Start: 03-10-2021 Registered Referred [facility] Plan of Treatment Date Care Activity Detail Author Start: 07-09-2024 Measurement of substance [facility] Start: 04-11-2023 Measurement of substance [facility] Start: 04-11-2023 Procedure [facility] Start: 01-10-2023 Procedure [facility] Start: 04-12-2022 Procedure [facility] Work Phone: Start: 01-07-2022 Measurement of substance [facility] Work Phone: Start: 01-07-2022 Procedure [facility] Work Phone: Measurement of substance [facility] Work Phone: Procedure [facility] Work Phone: [facility] Payers Date Payer Category Payer Medicare [id number] 2023 Self-pay [id number] 2009 Medicaid [id number] Unknown [id number] Unknown [id number] 2.16.8 [id number] Unknown [id number] 2.16.8 [id number] Unknown [id number] 2.16.8 [id number] Unknown [id number] 2.16.8 [id number] Unknown [id number] 2.16.8 [id number] Unknown [id number] 2.16.8 [id number] Unknown [id number] 2.16.8 [id number] Social History Date Type Detail Facility Tobacco smoking stat [facility] Unknown if ever smoked [facility] Work Phone: Start: 1950 Sex Assigned At Male W [facility] Tobacco smoking stat [facility] Unknown if ever smoked [facility] Work Phone: Start: 07-11-2024 Sex Male (finding) [facility] Evaluation note Note Date & Type Note Facility Evaluation note No assessment information availa ble [facility] Work Phone: Reason for referral (narrative) Note Date & Type Note Facility Reason for referral (narrative) No reason for referral information available [facility] Work Phone: Chief Complaint and Reason for Visit Chief Complaint [facility] Chief Complaint [facility]WORK [facility] WORK [facility] WORK Chief Complaint S[facility] WOR K LABWORK SEN[facility] LIVING LABWORK Chief Complaint SENIOR LIVING LABWORK SEN[facility]IVING LABWORK Chief Complaint SENIOR LIVING LABWORK [facility] WORK Chief Complaint SENIOR LIVING LABWORK [facility] WORK SENIOR LIVING LABWORK Chief Complaint S[facility]IV[facility] LAB WOR K [facility] WORK LABWORK Chief Complaint S[facility]IV[facility] WOR K LABWORK Chief Complaint LABWORK LABWORK Chief Complaint LABWORK [facility] WORK Chief Complaint LABWORK S[facility] WORK [facility] WORRK Chief Complaint LABWORK S[facility] WORK [facility] WORRK [facility] WORK Chief Complaint Admit Date [facility] WORK March 13 5:00am [facility] April 10, 2024 4:00am [facility] May 14 5:00am [facility] July 09, 2024 4: 00am Summary Purpose Family History No Family History Records Found Advance Directives No Advanced Directives Records Found Additional Source Comments Goals (unrecognized section and content) Goals may be documented in a n alternate sectionGoals may be documented in an alternate sectionGoals may be documented in an alternate sectionGoals may be documented in an alternate sectionGoals may be documented in an alternate sectionGoals may be documented in an alternate sectionGoals may be documented in an alternate sectionGoals may be documented in an alternate sectionGoals may be documented in an alternate sectionGoals may be documented in an alternate sectionGoals may be documented in an alternate sectionGoals may be documented in an alternate sectionGoals may be documented in an alternate sectionGoals may be documented in an alternate sectionGoals may be documented in an alternate sectionGoals may be documented in an alternate section Care Teams (unrecognized sec tion and content) Team Status: Inactive Member Role Status Dates Chris BRANNON MD Attending Provider Active Team Status: Inactive Member Role Status Dates Chris BRANNON MD Attending Provider, Referring Pr ovider Active Team Status: Active Member Role Status Dates Chris BRANNON MD Attending Provider Active Team Status: Active Member Role Status Dates Chris BRANNON MD Primary Care Provider Active Team Status: Inactive Member Role Status Dates Chris BRANNON MD Attending Provider Active Start: March 13, 2024 End: March 13, 2024 Team Status: Active Member Role Status Dates Chris BRANNON MD Primary Care Provider Active Start: April 10, 2024 Chris BRANNON MD Attending Provider Active Start: April 10, 2024 Chris BRANNON MD Referring Provider Active Start: April 10, 2024 Team Status: Active Member Role Status Dates Chris BRANNON MD Primary Care Provider Active Start: May 14, 2024 Chris BRANNON MD Attending Provider Active Start: May 14, 2024 Team Status: Inactive Member Role Status Dates Chris BRANNON MD Primary Care Provider Active Start: July 09, 2024 End: July 09, 2024 Chris BRANNON MD Attending Provider Active Start: July 09, 2024 End: July 09, 2024 Chris BRANNON MD Referring Provider Active Start: July 09, 2024 End: July 09, 2024 (unrecognized sect ion and content) No Status Records Found INFORMATION SOURCE (unrecogn ized section and content) DATE CREATED AUTHOR 07/15/2024 [facility] FOR RECORDS PERTAINING TO PATIENTS WHO ARE OR HAVE BEEN ENROLLED IN A CHEMICAL DEPENDENCY/SUBSTANCEABUSE PROGRAM, SOME INFORMATION MAY BE OMITTED. This clinical summary was aggregated from multiple sources. Caution should be exercised in using it in the provision of clinical care. This summary normalizes information from multiple sources, and as a consequence, information in this document may materially change the coding, format and clinical context of patient data. In addition, data may be omitted in some cases. CLINICAL DECISIONS SHOULD BE BASED ON THE PRIMARY CLINICAL RECORDS. [facility]. provides no warranty or guarantee of the accuracy or completeness of information in this document.
[2024-09-10 08:18] LABS: AST(SGOT) 24 U/L (<=37); Alanine Aminotransfer ALT/SGPT 11 U/L (<=46); Albumin, Serum 2.9 g/dL (3.4-4.8); Alkaline Phosphatase 69 U/L (40-129); Bilirubin, Direct 0.19 mg/dL (0.00-0.30); Globulin 2.6 g/dL (2.2-4.2); PSA,Total - Annual Screen 0.21 ng/mL (0.02-4.00); Protein, Total 5.5 g/dL (5.9-8.4); Total Bilirubin 0.41 mg/dL (0.00-1.30)
== END ==
LOC: OLS.WCC 04:00
PROVIDERS: PCP Family Medicine; Referring Provider Family Medicine; Visit Provider Family Medicine
DX: Z79.899 Other long term (current) drug therapy (principal); Z12.5 Encounter for screening for malignant neoplasm of prostate
CPT/HCPCS: 36415; 80076; 84153; G0103

== ENCOUNTER → 2024-10-08 | Outpatient (REF) | payer MEDICARE, MEDICAID, SELFPAY ==
[2024-10-08 08:18] LABS: Hematocrit 35.5 % (40-54); Hemoglobin 12.4 g/dL (13.0-16.5); Immature Granulocytes Count 0.000 X10^3/uL (0.0-0.0); Mean Corp Hgb Conc 34.9 g/dL (32-36); Mean Corpuscular Volume 99.4 fL (80-94); Mean Platelet Vol. 10.0 fl (6.2-12.0); NRBC Flagged by Analyzer 0 % (0-5); POSITIVE COUNT YES; Platelet Count 85 K/mm3 (150-450); RBC Distribution Width CV 12.3 % (11.6-14.6); RBC Distribution Width SD 45.0 fl (35.1-43.9); Red Blood Count 3.57 M/mm3 (4.6-6.2); White Blood Count 2.7 K/mm3 (4.4-11.0)
[2024-10-08 08:40] LABS: Anion Gap 8 (5-15); BUN 10 mg/dL (4-19); BUN/Creat Ratio 16.8 RATIO (10-20); Calcium,Total 8.6 mg/dL (7.6-11.0); Carbon Dioxide 27.1 mmol/L (21.0-32.0); Chloride 107 mmol/L (98-108); Glucose 89 mg/dL (70-99); Potassium 3.7 mmol/L (3.3-5.1)
== END ==
LOC: OLS.WCC 05:00
PROVIDERS: PCP Family Medicine; Visit Provider Family Medicine
DX: I10 Essential (primary) hypertension (principal); N40.0 Benign prostatic hyperplasia without lower urinary tract symptoms; I87.2 Venous insufficiency (chronic) (peripheral)
CPT/HCPCS: 36415; 80048; 85025

== ENCOUNTER → 2025-01-08 | Outpatient (REF) | payer MEDICARE, MEDICAID, SELFPAY ==
[2025-01-08 10:09] LABS: Hematocrit 35.5 % (40-54); Hemoglobin 12.4 g/dL (13.0-16.5); Immature Granulocytes Count 0.000 X10^3/uL (0.0-0.0); Mean Corp Hgb Conc 34.9 g/dL (32-36); Mean Corpuscular Volume 99.4 fL (80-94); Mean Platelet Vol. 10.1 fl (6.2-12.0); NRBC Flagged by Analyzer 0 % (0-5); Platelet Count 101 K/mm3 (150-450); RBC Distribution Width CV 12.6 % (11.6-14.6); RBC Distribution Width SD 45.6 fl (35.1-43.9); Red Blood Count 3.57 M/mm3 (4.6-6.2); White Blood Count 2.6 K/mm3 (4.4-11.0)
[2025-01-08 14:15] LABS: Anion Gap 12 (5-15); BUN 8 mg/dL (4-19); BUN/Creat Ratio 13.6 RATIO (10-20); Calcium,Total 8.3 mg/dL (7.6-11.0); Carbon Dioxide 25.1 mmol/L (21.0-32.0); Chloride 104 mmol/L (98-108); Cholesterol 196 mg/dL (<=200); Glucose 98 mg/dL (70-99); Low Density Lipoprotein Calc. 135 mg/dL; Potassium 3.8 mmol/L (3.3-5.1); Triglycerides 65 mg/dL; Very Low Density Lipoprotein 13 mg/dL (5-40); cholesterol:hdl ratio screen 4.07
[2025-01-12 14:08] LABS: Trileptal-Oxcarbazepine 34 ug/mL (10-35)
== END ==
LOC: OLS.WCC 05:00
PROVIDERS: PCP Family Medicine; Visit Provider Family Medicine
DX: N40.0 Benign prostatic hyperplasia without lower urinary tract symptoms (principal); I10 Essential (primary) hypertension; M62.81 Muscle weakness (generalized); F33.9 Major depressive disorder, recurrent, unspecified; R60.0 Localized edema; R56.9 Unspecified convulsions; G80.9 Cerebral palsy, unspecified
CPT/HCPCS: 36415; 80048; 80061; 82542; 85025

== ENCOUNTER → 2025-02-11 | Outpatient (REF) | payer MEDICARE, MEDICAID, SELFPAY ==
--- OUTSIDE RECORDS SUMMARY | 2025-02-11 04:23 | XMS RPT_ITS | CCD ---
Author Organization [facility] Team Providers Care Sheet Heater Helper Name Role Phone Chris Winston MD Attending Provider Rahul Winston MD, Chris Santacruz Primary Care Provider Kassandra Winston MD, Chris Santacruz Referring Provider Unavailable Winston OLS, Chris Noam Primary Care Unavailable Winston OLS, Chris Santacruz Attending Unavailable Winston OLS, Chris K Primary Care Unavailable Winston OLS, Chris K Attending Unavailable Winston OLS, Chris K Referring Unavailable Winston OLS, Chris K Primary Care Unavailable Winston OLS, Chris K Attending Unavailable Winston OLS, Chris K Referring Unavailable Winston OLS, Chris K Primary Care Unavailable Winston OLS, Chris K Attending Unavailable Winston OLS, Chris K Primary Care Unavailable Winston OLS, Chris K Attending Unavailable Winston OLS, Chris K Referring Unavailable Winston OLS, Chris K Attending Unavailable Winston OLS, Chris K Attending Unavailable Winston OLS, Chris K Primary Care Unavailable Problems Active Problems Problem Classification Problem Date Documented Date Episodic/Chronic Epilepsy; convulsions (1 source) Unspecified convulsions; Translations: [Unspecified convulsions] Onset: 02-01-2025 Episodic Essential hypertension (1 source) Essential (primary) hypertension; Translations: [Essential (primary) hypertension] Onset: 02-01-2025 Chronic Hyperplasia of prostate (1 source) Benign prostatic hyperplasia without lower urinary tract symptoms; Translations: [Benign prostatic hyperplasia without lower urinary tract symptoms] Onset: 02-01-2025 Chronic Other connective tissue disease (1 source) Muscle weakness (generalized); Translations: [Muscle weakness (generalized)] Onset: 02-01-2025 Episodic Other diseases of veins and lymphatics (2 sources) Venous insufficiency (chronic) (peripheral); Translations: [Venous insufficiency (chronic) (peripheral)] Onset: 05-10-2024 Episodic Paralysis (1 source) Cerebral palsy, unspecified; Translations: [Cerebral palsy, unspecified] Onset: 02-01-2025 Chronic Past or Other Problems Problem Classification Problem Date Documented Da te Episodic/Chronic Other aftercare (2 sources) 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 COMMENT Normal . [facility] Comment on above: Order Comment: 124.1 SERUM ROOM TEMP [id number] LACOSAMIDE Result Comment: Test Ordered: [id number] Lacosamide Test(s) 073693-Nyxvahapah was developed and its performance characteristics determined by [facility]. It has not been cleared or approved by the Food and Drug Administration. Lacosamide 14.8 [H ] ug/mL Reference Range: 5.0-10.0 Limit of Detection 0.5 Mean plasma concentrations following maintenance dose 200 mg/day 4.99 +/- 2.51 ug/mL 400 mg/day 9.35 +/- 4.22 ug/mL 600 mg/day 12.46 +/- 5.60 ug/mL Performed at: [address] [id number] Certified Forklift Operator: Mindy Parkinson MD, Phone: [phone] Performed at: [address] [id number] Certified Forklift Operator: Cooper Malcolm PhD, Phone: [phone] Performed By: #### L 3410.9992 #### [facility] [address] [facility] [place], [place], [id number] L3410.9994on 01-12-2025 [facility]. 2 COMMENT Normal . [facility] Comment on above: Order Comment: 124.1 SERUM ROOM TEMP [id number] LACOSAMIDE Result Comment: Test Ordered: [id number] Gabapentin (Neurontin), Serum Gabapentin, Serum 4.5 ug/mL Reference Range: 4.0-16.0 Detection Limit = 1.0 Performed at: [address] [id number] Certified Forklift Operator: Mindy Parkinson MD, Phone: [phone] Performed at: [address] [id number] Certified Forklift Operator: Cooper Malcolm PhD, Phone: [phone] Performed By: #### L 3410.9992 #### [facility] [address] [place], [place], [id number] Trileptal-Oxcarbazepineon OXCARBAZEPINE 34 ug/mL Normal -35 [facility] Comment on above: Order Comment: 124.1 SERUM ROOM TEMP [id number] LACOSAMIDE Result Comment: This test was developed and its performance characteristics determined by [employer]. It has not been cleared or approved by the Food and Drug Administration. Detection Limit = 1 Performed at: [address] [id number] Certified Forklift Operator: Mindy Parkinson MD, Phone: [phone] Performed By: #### L 3410.9992 #### [facility] [address] [place], [place], [id number] Basic Metabolic Profile (BMP )on 01-08-2025 BUN/CRE 13.6 RATIO Normal 10-20 [facility] Comment on above: Order Comment: 124.1 SERUM ROOM TEMP [id number] LACOSAMIDE Performed By: #### L 3410.9992 #### [facility] [address] [place], [place], [address] Calcium [Mass/Vol] 8.3 mg/dL Normal 7.6-11.0 [facility] Comment on above: Order Comment: 124.1 SERUM ROOM TEMP 486606 LACOSAMIDE Performed By: #### L 3410.9992 #### [facility] [address] [place], [place], [address] Chloride [Moles/Vol] 104 mmol/L Normal 98-108 [facility] Comment on above: Order Comment: 124.1 SERUM ROOM TEMP 790697 LACOSAMIDE Performed By: #### L 3410.9992 #### [facility] [address] [place], [address] CO2 [Moles/Vol] 25.1 mmol/L Normal 21.0-32.0 [facility] Comment on above: Order Comment: 124.1 SERUM ROOM TEMP 337232 LACOSAMIDE Performed By: #### L 3410.9992 #### [facility] [address] [place], [address] Creatinine [Mass/Vol] 0.61 mg/dL Low 0.70-1.20 [facility] Comment on above: Order Comment: 124.1 SERUM ROOM TEMP [id number] LACOSAMIDE Performed By: #### L 3410.9992 #### [facility] [address] [place], [address] GAP 12 Normal 5-15 [facility] Comment on above: Order Comment: 124.1 SERUM ROOM TEMP [id number] LACOSAMIDE Performed By: #### L 3410.9992 #### [facility] [address] [place], [address] GFR/1.73 sq M.predicted among non-blacks MDRD (S/P/Bld) [Vol rate/Area] 102 mL/min/{1.73_m2} Normal >60 [facility] Comment on above: Order Comment: 124.1 SERUM ROOM TEMP 027715 LACOSAMIDE Result Comment: mL/m in/1.73m2 CKD-EPI Creatinine Equation (2020) Performed By: #### L 3410.9992 #### [facility] [address] [place], [address] Glucose [Mass/Vol] 98 mg/dL Normal 70-99 [facility] Comment on above: Order Comment: 124.1 SERUM ROOM TEMP 385298 LACOSAMIDE Performed By: #### L 3410.9992 #### [facility] [address] [place], [address] Potassium [Moles/Vol] 3.8 mmol/L Normal 3.3-5.1 [facility] Comment on above: Order Comment: 124.1 SERUM ROOM TEMP 904281 LACOSAMIDE Performed By: #### L 3410.9992 #### [facility] [address] [place], [address] Sodium [Moles/Vol] 141 mmol/L Normal 133-145 [facility] Comment on above: Order Comment: 124.1 SERUM ROOM TEMP 220717 LACOSAMIDE Performed By: #### L 3410.9992 #### [facility] [address] [place], [address] Urea nitrogen [Mass/Vol] 8 mg/dL Normal 4-19 [facility] Comment on above: Order Comment: 124.1 SERUM ROOM TEMP [id number] LACOSAMIDE Performed By: #### L 3410.9992 #### [facility] [address] [place], [address] CBC W/Diff, Automatedon 10-0 7-2024 Absolute Lymph 0.74 X10 3/uL Low 0.83-4.51 [facility] Comment on above: Order Comment: 124.1 Performed By: #### L 3410.9994, L100.0100, L3410.9992, L500.4100, L3800.1700, L500.2500 #### [facility] [address] [place], [address] Absolute Neut 1.4 X10 3/uL Low 2.0-7.7 [facility] Comment on above: Order Comment: 124.1 Performed By: #### L 3410.9994, L100.0100, L3410.9992, L500.4100, L3800.1700, L500.2500 #### [facility] [address] [place], [address] Basophils/100 WBC (Bld) 0.8 % Normal 0-1 [facility] Comment on above: Order Comment: 124.1 Performed By: #### L 3410.9994, L100.0100, L3410.9992, L500.4100, L3800.1700, L500.2500 #### [facility] [address] [place], [address] Eosinophils/100 WBC (Bld) 6.5 % High 0-5 [facility] Comment on above: Order Comment: 124.1 Performed By: #### L 3410.9994, L100.0100, L3410.9992, L500.4100, L3800.1700, L500.2500 #### [facility] [address] [place], [address] Erythrocyte distribution width (RBC) [Ratio] 12.6 % Normal 11.6-14.6 [facility] Comment on above: Order Comment: 124.1 Performed By: #### L 3410.9994, L100.0100, L3410.9992, L500.4100, L3800.1700, L500.2500 #### [facility] [address] [place], [address] Hematocrit (Bld) [Volume fraction] 35.5 % Low 40-54 [facility] Comment on above: Order Comment: 124.1 Performed By: #### L 3410.9994, L100.0100, L3410.9992, L500.4100, L3800.1700, L500.2500 #### [facility] [address] [place], [address] Hemoglobin (Bld) [Mass/Vol] 12.4 g/dL Low 13.0-16.5 [facility] Comment on above: Order Comment: 124.1 Performed By: #### L 3410.9994, L100.0100, L3410.9992, L500.4100, L3800.1700, L500.2500 #### [facility] [address] [place], [address] IG% 0.000 Normal 0.0-0.9 [facility] Comment on above: Order Comment: 124.1 Result Comment: IG% - Immature Granulocytes (promyelocytes, myelocytes and metamyelocytes) > 1% indicates that a LEFT SHIFT is Present. Performed By: #### L 3410.9994, L100.0100, L3410.9992, L500.4100, L3800.1700, L500.2500 #### [facility] [address] [place], [address] Lymphocytes/100 WBC (Bld) 28.2 % Normal 19-41 [facility] Comment on above: Order Comment: 124.1 Performed By: #### L 3410.9994, L100.0100, L3410.9992, L500.4100, L3800.1700, L500.2500 #### [facility] [address] [place], [address] MCH (RBC) [Entitic mass] 34.7 pg High 27.0-32.0 [facility] Comment on above: Order Comment: 124.1 Performed By: #### L 3410.9994, L100.0100, L3410.9992, L500.4100, L3800.1700, L500.2500 #### [facility] [address] [place], [address] MCHC (RBC) [Mass/Vol] 34.9 g/dL Normal 32-36 [facility] Comment on above: Order Comment: 124.1 Performed By: #### L 3410.9994, L100.0100, L3410.9992, L500.4100, L3800.1700, L500.2500 #### [facility] [address] [place], [address] MCV (RBC) [Entitic vol] 99.4 fL High 80-94 [facility] Comment on above: Order Comment: 124.1 Performed By: #### L 3410.9994, L100.0100, L3410.9992, L500.4100, L3800.1700, L500.2500 #### [facility] [address] [place], [address] Monocytes/100 WBC (Bld) 12.6 % High 0-10 [facility] Comment on above: Order Comment: 124.1 Performed By: #### L 3410.9994, L100.0100, L3410.9992, L500.4100, L3800.1700, L500.2500 #### [facility] [address] [place], [address] Neutrophils/100 WBC (Bld) 51.9 % Normal 47-70 [facility] Comment on above: Order Comment: 124.1 Performed By: #### L 3410.9994, L100.0100, L3410.9992, L500.4100, L3800.1700, L500.2500 #### [facility] [address] [place], [address] Nucleated RBC (Bld) [#/Vol] 0 10*3/uL Normal 0-5 [facility] Comment on above: Order Comment: 124.1 Performed By: #### L 3410.9994, L100.0100, L3410.9992, L500.4100, L3800.1700, L500.2500 #### [facility] [address] [place], [address] Platelet mean volume (Bld) [Entitic vol] 10.1 fL Normal 6.2-12.0 [facility] Comment on above: Order Comment: 124.1 Performed By: #### L 3410.9994, L100.0100, L3410.9992, L500.4100, L3800.1700, L500.2500 #### [facility] [address] [place], [address] Platelets (Bld) [#/Vol] 101 10*3/uL Low 150-450 [facility] Comment on above: Order Comment: 124.1 Performed By: #### L 3410.9994, L100.0100, L3410.9992, L500.4100, L3800.1700, L500.2500 #### [facility] [address] [place], [address] RBC (Bld) [#/Vol] 3.57 10*6/uL Low 4.6-6.2 [facility] Comment on above: Order Comment: 124.1 Performed By: #### L 3410.9994, L100.0100, L3410.9992, L500.4100, L3800.1700, L500.2500 #### [facility] [address] [place], [address] RDW SD 45.6 fl High 35.1-43.9 [facility] Comment on above: Order Comment: 124.1 Performed By: #### L 3410.9994, L100.0100, L3410.9992, L500.4100, L3800.1700, L500.2500 #### [facility] [address] [place], [address] WBC (Bld) [#/Vol] 2.6 10*3/uL Low 4.4-11.0 [facility] Comment on above: Order Comment: 124.1 Performed By: #### L 3410.9994, L100.0100, L3410.9992, L500.4100, L3800.1700, L500.2500 #### [facility] [address] [place], [address] Lipid Profileon 01-08-2025 CHOL:HDL 4.07 Normal [facility] Comment on above: Order Comment: 124.1 SERUM ROOM TEMP 115428 LACOSAMIDE Performed By: #### L 3410.9992 #### [facility] [address] [place], [address] Cholesterol [Mass/Vol] 196 mg/dL Normal <=200 [facility] Comment on above: Order Comment: 124.1 SERUM ROOM TEMP 928504 LACOSAMIDE Result Comment: Chol esterol level, Desirable <200 mg/dL Borderline high cholesterol 200-239 mg/dL High cholesterol >=240 mg/dL Recommendations of the NCEP Adult Treatment Panel for the following risk-cutoff thresholds for the [place] population. Performed By: #### L 3410.9992 #### [facility] [address] [facility] [address] Cholesterol in HDL [Mass/Vol] 48 mg/dL Normal [facility] Comment on above: Order Comment: 124.1 SERUM ROOM [facility] 625259 LACOSAMIDE Result Comment: Lizet onal Cholesterol Education Program (NCEP) guidelines: <40 mg/dL: Low HDL-cholesterol (major risk factor for CHD) >= 60 mg/dL: High HDL-cholesterol (negative risk factor for CHD) HDL-cholesterol is affected by a number of factors, e.g. smoking, exercise, hormones, sex and age. Performed By: #### L 3410.9992 #### [facility] [address] [place], [address] Cholesterol in LDL [Mass/Vol] 135 mg/dL Normal [facility] Comment on above: Order Comment: 124.1 SERUM ROOM TEMP 254296 LACOSAMIDE Result Comment: Bord yheltc=704-424 mg/dL Higher Ivuk=684 mg/dL or greater Friedwald Equation for LDL-C Performed By: #### L 3410.9992 #### [facility] [address] [place], [address] Cholesterol in VLDL [Mass/Vol] 13 mg/dL Normal 5-40 [facility] Comment on above: Order Comment: 124.1 SERUM ROOM TEMP 258452 LACOSAMIDE Performed By: #### L 3410.9992 #### [facility] [address] [place], [address] Triglyceride [Mass/Vol] 65 mg/dL Normal [facility] Comment on above: Order Comment: 124.1 SERUM ROOM TEMP 762230 LACOSAMIDE Result Comment: The drugs N-Acetylcysteine and Metamizole may falsely depress this assay. Normal range: <150 mg/dL Borderline High: 150-199 mg/dL High: 200-499 mg/dL Very High: >500 mg/dL Performed By: #### L 3410.9992 #### [facility] [address] [place], [address] L3410.9992on 10-12-2024 [facility] COMMENT Normal . [facility] Comment on above: Order Comment: 124.1 SERUM ROOM TEMP 527243 LACOSAMIDE Result Comment: Test Ordered: [id number] Lacosamide Test(s) 151048-Klqbjxmdat was developed and its performance characteristics determined by [employer]. It has not been cleared or approved by the Food and Drug Administration. Lacosamide 10.6 [H ] ug/mL Reference Range: 5.0-10.0 Limit of Detection 0.5 Mean plasma concentrations following maintenance dose 200 mg/day 4.99 +/- 2.51 ug/mL 400 mg/day 9.35 +/- 4.22 ug/mL 600 mg/day 12.46 +/- 5.60 ug/mL Performed at: - [facility] [id number] Certified Forklift Operator: Mindy Parkinson MD, Phone: [phone] Performed at: [address] [id number] Certified Forklift Operator: Cooepr Malcolm PhD, Phone: [phone] Performed By: #### L 3410.9992 #### [facility] [address] [place], [place], [address] Order Comment: 124.1 Result Comment: Test Ordered: [id number] Oxcarbazepine (Trileptal),S Oxcarbazepine Metabolite 29 ug/mL Reference Range: 10-35 This test was developed and its performance characteristics determined by [employer]. It has not been cleared or approved by the Food and Drug Administration. Detection Limit = 1 Performed at: - [facility] [id number] Certified Forklift Operator: Mindy Parkinson MD, Phone: [phone] Performed at: - [address] [id number] Certified Forklift Operator: Cooper Malcolm PhD, Phone: [phone] Performed By: #### L 3800.1700, L100.0100, L3410.9998, L500.2500 #### [facility] [address] [place], [address] Basic Metabolic Profile (BMP )on 10-08-2024 BUN/CRE 16.8 RATIO Normal 10-20 [facility] Comment on above: Order Comment: 124.1 Performed By: #### L 3800.1700, L100.0100, L3410.9998, L500.2500 #### [facility] [address] [place], [address] Calcium [Mass/Vol] 8.6 mg/dL Normal 7.6-11.0 [facility] Comment on above: Order Comment: 124.1 Performed By: #### L 3800.1700, L100.0100, L3410.9998, L500.2500 #### [facility] [address] [place], [address] Chloride [Moles/Vol] 107 mmol/L Normal 98-108 [facility] Comment on above: Order Comment: 124.1 Performed By: #### L 3800.1700, L100.0100, L3410.9998, L500.2500 #### [facility] [address] [place], [address] CO2 [Moles/Vol] 27.1 mmol/L Normal 21.0-32.0 [facility] Comment on above: Order Comment: 124.1 Performed By: #### L 3800.1700, L100.0100, L3410.9998, L500.2500 #### [facility] [address] [place], [address] Creatinine [Mass/Vol] 0.61 mg/dL Low 0.70-1.20 [facility] Comment on above: Order Comment: 124.1 Performed By: #### L 3800.1700, L100.0100, L3410.9998, L500.2500 #### [facility] [address] [place], [address] GAP 8 Normal 5-15 [facility] Comment on above: Order Comment: 124.1 Performed By: #### L 3800.1700, L100.0100, L3410.9998, L500.2500 #### [facility] [address] [place], [address] GFR/1.73 sq M.predicted among non-blacks MDRD (S/P/Bld) [Vol rate/Area] 101 mL/min/{1.73_m2} Normal >60 [facility] Comment on above: Order Comment: 124.1 Result Comment: mL/m in/1.73m2 CKD-EPI Creatinine Equation (2020) Performed By: #### L 3800.1700, L100.0100, L3410.9998, L500.2500 #### [facility] [address] [place], [address] Glucose [Mass/Vol] 89 mg/dL Normal 70-99 [facility] Comment on above: Order Comment: 124.1 Performed By: #### L 3800.1700, L100.0100, L3410.9998, L500.2500 #### [facility] [address] [place], [address] Potassium [Moles/Vol] 3.7 mmol/L Normal 3.3-5.1 [facility] Comment on above: Order Comment: 124.1 Performed By: #### L 3800.1700, L100.0100, L3410.9998, L500.2500 #### [facility] [address] [place], [address] Sodium [Moles/Vol] 142 mmol/L Normal 133-145 [facility] Comment on above: Order Comment: 124.1 Performed By: #### L 3800.1700, L100.0100, L3410.9998, L500.2500 #### [facility] [address] [place], [address] Urea nitrogen [Mass/Vol] 10 mg/dL Normal 4-19 [facility] Comment on above: Order Comment: 124.1 Performed By: #### L 3800.1700, L100.0100, L3410.9998, L500.2500 #### [facility] [address] [place], [address] CBC W/Diff, Automatedon 07-0 7-2024 Absolute Lymph 1.10 X10 3/uL Normal 0.83-4.51 [facility] Comment on above: Order Comment: 124.1 Performed By: #### L 3800.1700, L100.0100, L3410.9998, L500.2500 #### [facility] [address] [place], [address] Absolute Neut 1.2 X10 3/uL Low 2.0-7.7 [facility] Comment on above: Order Comment: 124.1 Performed By: #### L 3800.1700, L100.0100, L3410.9998, L500.2500 #### [facility] [address] [place], [address] Basophils/100 WBC (Bld) 0.7 % Normal 0-1 [facility] Comment on above: Order Comment: 124.1 Performed By: #### L 3800.1700, L100.0100, L3410.9998, L500.2500 #### [facility] [address] [place], [address] Eosinophils/100 WBC (Bld) 5.5 % High 0-5 [facility] Comment on above: Order Comment: 124.1 Performed By: #### L 3800.1700, L100.0100, L3410.9998, L500.2500 #### [facility] [address] [place], [address] Erythrocyte distribution width (RBC) [Ratio] 12.3 % Normal 11.6-14.6 [facility] Comment on above: Order Comment: 124.1 Performed By: #### L 3800.1700, L100.0100, L3410.9998, L500.2500 #### [facility] [address] [place], [address] Hematocrit (Bld) [Volume fraction] 35.5 % Low 40-54 [facility] Comment on above: Order Comment: 124.1 Performed By: #### L 3800.1700, L100.0100, L3410.9998, L500.2500 #### [facility] [address] [place], [address] Hemoglobin (Bld) [Mass/Vol] 12.4 g/dL Low 13.0-16.5 [facility] Comment on above: Order Comment: 124.1 Performed By: #### L 3800.1700, L100.0100, L3410.9998, L500.2500 #### [facility] [address] [place], [address] IG% 0.000 Normal 0.0-0.9 [facility] Comment on above: Order Comment: 124.1 Result Comment: IG% - Immature Granulocytes (promyelocytes, myelocytes and metamyelocytes) > 1% indicates that a LEFT SHIFT is Present. Performed By: #### L 3800.1700, L100.0100, L3410.9998, L500.2500 #### [facility] [address] [place], [address] Lymphocytes/100 WBC (Bld) 40.4 % Normal 19-41 [facility] Comment on above: Order Comment: 124.1 Performed By: #### L 3800.1700, L100.0100, L3410.9998, L500.2500 #### [facility] [address] [place], [address] MCH (RBC) [Entitic mass] 34.7 pg High 27.0-32.0 [facility] Comment on above: Order Comment: 124.1 Performed By: #### L 3800.1700, L100.0100, L3410.9998, L500.2500 #### [facility] [address] [place], [address] MCHC (RBC) [Mass/Vol] 34.9 g/dL Normal 32-36 [facility] Comment on above: Order Comment: 124.1 Performed By: #### L 3800.1700, L100.0100, L3410.9998, L500.2500 #### [facility] [address] [place], [address] MCV (RBC) [Entitic vol] 99.4 fL High 80-94 [facility] [facility] Comment on above: Order Comment: 124.1 Performed By: #### L 3800.1700, L100.0100, L3410.9998, L500.2500 #### [facility] [address] [place], [address] Monocytes/100 WBC (Bld) 10.3 % High 0-10 [facility] Comment on above: Order Comment: 124.1 Performed By: #### L 3800.1700, L100.0100, L3410.9998, L500.2500 #### [facility] [address] [place], [address] Neutrophils/100 WBC (Bld) 43.1 % Low 47-70 [facility] Comment on above: Order Comment: 124.1 Performed By: #### L 3800.1700, L100.0100, L3410.9998, L500.2500 #### [facility] [address] [place], [address] Nucleated RBC (Bld) [#/Vol] 0 10*3/uL Normal 0-5 [facility] Comment on above: Order Comment: 124.1 Performed By: #### L 3800.1700, L100.0100, L3410.9998, L500.2500 #### [facility] [address] [place], [address] Platelet mean volume (Bld) [Entitic vol] 10.0 fL Normal 6.2-12.0 [facility] Comment on above: Order Comment: 124.1 Performed By: #### L 3800.1700, L100.0100, L3410.9998, L500.2500 #### [facility] [address] [place], [address] Platelets (Bld) [#/Vol] 85 10*3/uL Low 150-450 [facility] Comment on above: Order Comment: 124.1 Performed By: #### L 3800.1700, L100.0100, L3410.9998, L500.2500 #### [facility] [address] [place], [address] RBC (Bld) [#/Vol] 3.57 10*6/uL Low 4.6-6.2 [facility] Comment on above: Order Comment: 124.1 Performed By: #### L 3800.1700, L100.0100, L3410.9998, L500.2500 #### [facility] [address] [place], [address] RDW SD 45.0 fl High 35.1-43.9 [facility] Comment on above: Order Comment: 124.1 Performed By: #### L 3800.1700, L100.0100, L3410.9998, L500.2500 #### [facility] [address] [place], [address] WBC (Bld) [#/Vol] 2.7 10*3/uL Low 4.4-11.0 [facility] Comment on above: Order Comment: 124.1 Performed By: #### L 3800.1700, L100.0100, L3410.9998, L500.2500 #### [facility] [address] [place], [address] Liver Profileon 09-10-2024 Albumin [Mass/Vol] 2.9 g/dL Low 3.4-4.8 [facility] Comment on above: Order Comment: 124.1 Performed By: #### L 501.9910, L500.3400 #### [facility] [address] [place], [address] ALK PHOS 69 U/L Normal 40-129 [facility] Comment on above: Order Comment: 124.1 Performed By: #### L 501.9910, L500.3400 #### [facility] [address] [place], [address] ALT [Catalytic activity/Vol] 11 U/L Normal <=46 [facility] Comment on above: Order Comment: 124.1 Performed By: #### L 501.9910, L500.3400 #### [facility] [address] [place], [address] AST [Catalytic activity/Vol] 24 U/L Normal <=37 [facility] Comment on above: Order Comment: 124.1 Performed By: #### L 501.9910, L500.3400 #### [facility] [address] [place], [address] Bilirubin [Mass/Vol] 0.41 mg/dL Normal 0.00-1.30 [facility] Comment on above: Order Comment: 124.1 Performed By: #### L 501.9910, L500.3400 #### [facility] [address] [place], [address] Bilirubin.direct [Mass/Vol] 0.19 mg/dL Normal 0.00-0.30 [facility] Comment on above: Order Comment: 124.1 Performed By: #### L 501.9910, L500.3400 #### [facility] [address] [place], [address] Globulin (S) [Mass/Vol] 2.6 g/dL Normal 2.2-4.2 [facility] Comment on above: Order Comment: 124.1 Performed By: #### L 501.9910, L500.3400 #### [facility] [address] [place], [address] T PROT 5.5 g/dL Low 5.9-8.4 [facility] Comment on above: Order Comment: 124.1 Performed By: #### L 501.9910, L500.3400 #### [facility] [address] [place], [address] PSA,Total - Annual Screenon 09-10-2024 PSA,TOT SCREEN 0.21 ng/mL Normal 0.02-4.00 [facility] Comment on above: Order Comment: 124.1 Result Comment: This test was performed using the [employer] tPSA method. Measured values of a patient??sample can vary depending on the testing procedure used. PSA values determined on patient samples by different testing procedures cannot be used interchangeably. If there is a change in PSA assays while monitoring therapy, sequential testing should be performed to confirm baseline values. Performed By: #### L 501.9910, L500.3400 #### [facility] [address] [place], [place], [address] [facility] COM[facility] Normal . [facility] Comment on above: Order Comment: 124.1 726305 LACOSAMIDE, RED, ROOM TEMP Result Comment: Test Ordered: [id number] Lacosamide Test(s) 225918-Svzttpzrso was developed and its performance characteristics determined by [facility]. It has not been cleared or approved by the Food and Drug Administration. Lacosamide 14.4 [H ] ug/mL Reference Range: 5.0-10.0 Limit of Detection 0.5 Mean plasma concentrations following maintenance dose 200 mg/day 4.99 +/- 2.51 ug/mL 400 mg/day 9.35 +/- 4.22 ug/mL 600 mg/day 12.46 +/- 5.60 ug/mL Performed at: [address] [id number] Certified Forklift Operator: Mindy Parkinson MD, Phone: [phone] Performed at: [address] [id number] Certified Forklift Operator: Cooper Malcolm PhD, Phone: [phone] Performed By: #### L 6630.8626, L100.0100, L3410.9998, L500.2500 #### [facility] [address] [place], [place], [address] Trileptal-Oxcarbazepineon OXCARBAZEPINE 29 ug/mL Normal 10-35 [facility] Comment on above: Order Comment: 124.1 Result Comment: This test was developed and its performance characteristics determined by [facility]. It has not been cleared or approved by the Food and Drug Administration. Detection Limit = 1 Performed at: [address] [id number] Certified Forklift Operator: Mindy Parkinson MD, Phone: [phone] Performed By: #### L 3800.1700, L100.0100, L3410.9998, L500.2500 #### [facility] [address] [place], [address] [facility] Misc[facility] COMMENT Normal . [facility] Comment on above: Order Comment: 124.1 [id number] GABAPENTIN, RED, ROOM TEMP Result Comment: Test Ordered: [id number] Gabapentin (Neurontin), Serum Gabapentin, Serum 5.4 ug/mL Reference Range: 4.0-16.0 Detection Limit = 1.0 Performed at: - [facility] [id number] Certified Forklift Operator: Mindy Parkinson MD, Phone: [phone] Performed at: [facility] [address] [id number] Certified Forklift Operator: Cooper Malcolm PhD, Phone: [phone] Performed By: #### L 3410.9998 #### [facility] [address] [place], [place], [address] Absolute neutrophil countOrd ered By: Chris Winston on 07-09-2024 Neutrophils (Bld) [#/Vol] 1.9 10*3/uL Low 2.0-7.7 [facility] Anion gap in Serum or Plasma Ordered By: Chris Winston on 07-09-2024 Anion gap [Moles/Vol] 8 mmol/L 5-15 [facility] BUN/creatinine ratioOrdered By: Chris Winston on 07-09-2024 Urea nitrogen/Creatinine [Mass ratio] 25.8 mg/mg High 10- [facility] Basic Metabolic Profile (BMP )on 07-09-2024 BUN/CRE 25.8 RATIO High - [facility] Comment on above: Order Comment: 124.1 Performed By: #### L 3800.1700, L100.0100, L3410.9998, L500.2500 #### [facility] [address] [place], [address] Calcium [Mass/Vol] 8.6 mg/dL Normal 7.6-11.0 [facility] Comment on above: Order Comment: 124.1 Performed By: #### L 3800.1700, L100.0100, L3410.9998, L500.2500 #### [facility] [address] [place], [address] Chloride [Moles/Vol] 103 mmol/L Normal 98-108 [facility] Comment on above: Order Comment: 124.1 Performed By: #### L 3800.1700, L100.0100, L3410.9998, L500.2500 #### [facility] [address] [place], [address] CO2 [Moles/Vol] 28.3 mmol/L Normal 21.0-32.0 [facility] Comment on above: Order Comment: 124.1 Performed By: #### L 3800.1700, L100.0100, L3410.9998, L500.2500 #### [facility] [address] [place], [address] Creatinine [Mass/Vol] 0.64 mg/dL Low 0.70-1.20 [facility] Comment on above: Order Comment: 124.1 Performed By: #### L 3800.1700, L100.0100, L3410.9998, L500.2500 #### [facility] [address] [place], [address] GAP 8 Normal 5-15 [facility] Comment on above: Order Comment: 124.1 Performed By: #### L 3800.1700, L100.0100, L3410.9998, L500.2500 #### [facility] [address] [place], [address] GFR/1.73 sq M.predicted among non-blacks MDRD (S/P/Bld) [Vol rate/Area] 100 mL/min/{1.73_m2} Normal >60 [facility] Comment on above: Order Comment: 124.1 Result Comment: mL/m in/1.73m2 CKD-EPI Creatinine Equation (2020) Performed By: #### L 3800.1700, L100.0100, L3410.9998, L500.2500 #### [facility] [address] [place], [address] Glucose [Mass/Vol] 98 mg/dL Normal 70-99 [facility] Comment on above: Order Comment: 124.1 Performed By: #### L 3800.1700, L100.0100, L3410.9998, L500.2500 #### [facility] [address] [place], [address] Potassium [Moles/Vol] 3.7 mmol/L Normal 3.3-5.1 [facility] Comment on above: Order Comment: 124.1 Performed By: #### L 3800.1700, L100.0100, L3410.9998, L500.2500 #### [facility] [address] [place], [address] Sodium [Moles/Vol] 139 mmol/L Normal 133-145 [facility] Comment on above: Order Comment: 124.1 Performed By: #### L 3800.1700, L100.0100, L3410.9998, L500.2500 #### [facility] [address] [place], [address] Urea nitrogen [Mass/Vol] 17 mg/dL Normal 4-19 [facility] Comment on above: Order Comment: 124.1 Performed By: #### L 3800.1700, L100.0100, L3410.9998, L500.2500 #### [facility] [address] [place], [address] Basophil percentageOrdered B y: Chris Winston on 07-09-2024 Basophils/100 WBC (Bld) 1.1 % High 0-1 [facility] CBC W/Diff, Automatedon 04-0 7-2024 Absolute Lymph 0.94 X10 3/uL Normal 0.83-4.51 [facility] Comment on above: Order Comment: 124.1 Performed By: #### L 3800.1700, L100.0100, L3410.9998, L500.2500 #### [facility] [address] [place], [address] Absolute Neut 1.9 X10 3/uL Low 2.0-7.7 [facility] Comment on above: Order Comment: 124.1 Performed By: #### L 3800.1700, L100.0100, L3410.9998, L500.2500 #### [facility] [address] [place], [address] Basophils/100 WBC (Bld) 1.1 % High 0-1 [facility] Comment on above: Order Comment: 124.1 Performed By: #### L 3800.1700, L100.0100, L3410.9998, L500.2500 #### [facility] [address] [place], [address] Eosinophils/100 WBC (Bld) 5.6 % High 0-5 [facility] Comment on above: Order Comment: 124.1 Performed By: #### L 3800.1700, L100.0100, L3410.9998, L500.2500 #### [facility] [address] [place], [address] Erythrocyte distribution width (RBC) [Ratio] 12.9 % Normal 11.6-14.6 [facility] Comment on above: Order Comment: 124.1 Performed By: #### L 3800.1700, L100.0100, L3410.9998, L500.2500 #### [facility] [address] [place], [address] Hematocrit (Bld) [Volume fraction] 36.0 % Low 40-54 [facility] Comment on above: Order Comment: 124.1 Performed By: #### L 3800.1700, L100.0100, L3410.9998, L500.2500 #### [facility] [address] [place], [address] Hemoglobin (Bld) [Mass/Vol] 12.6 g/dL Low 13.0-16.5 [facility] Comment on above: Order Comment: 124.1 Performed By: #### L 3800.1700, L100.0100, L3410.9998, L500.2500 #### [facility] [address] [place], [address] IG% 0.300 Normal 0.0-0.9 [facility] Comment on above: Order Comment: 124.1 Result Comment: IG% - Immature Granulocytes (promyelocytes, myelocytes and metamyelocytes) > 1% indicates that a LEFT SHIFT is Present. Performed By: #### L 3800.1700, L100.0100, L3410.9998, L500.2500 #### [facility] [address] [place], [address] Lymphocytes/100 WBC (Bld) 26.3 % Normal 19-41 [facility] Comment on above: Order Comment: 124.1 Performed By: #### L 3800.1700, L100.0100, L3410.9998, L500.2500 #### [facility] [address] [place], [address] MCH (RBC) [Entitic mass] 34.7 pg High 27.0-32.0 [facility] Comment on above: Order Comment: 124.1 Performed By: #### L 3800.1700, L100.0100, L3410.9998, L500.2500 #### [facility] [address] [place], [address] MCHC (RBC) [Mass/Vol] 35.0 g/dL Normal 32-36 [facility] Comment on above: Order Comment: 124.1 Performed By: #### L 3800.1700, L100.0100, L3410.9998, L500.2500 #### [facility] [address] [place], [address] MCV (RBC) [Entitic vol] 99.2 fL High 80-94 [facility] Comment on above: Order Comment: 124.1 Performed By: #### L 3800.1700, L100.0100, L3410.9998, L500.2500 #### [facility] [address] [place], [address] Monocytes/100 WBC (Bld) 13.1 % High 0-10 [facility] Comment on above: Order Comment: 124.1 Performed By: #### L 3800.1700, L100.0100, L3410.9998, L500.2500 #### [facility] [address] [place], [address] Neutrophils/100 WBC (Bld) 53.6 % Normal 47-70 [facility] Comment on above: Order Comment: 124.1 Performed By: #### L 3800.1700, L100.0100, L3410.9998, L500.2500 #### [facility] [address] [place], [address] Nucleated RBC (Bld) [#/Vol] 0 10*3/uL Normal 0-5 [facility] Comment on above: Order Comment: 124.1 Performed By: #### L 3800.1700, L100.0100, L3410.9998, L500.2500 #### [facility] [address] [place], [address] Platelet mean volume (Bld) [Entitic vol] 9.8 fL Normal 6.2-12.0 [facility] Comment on above: Order Comment: 124.1 Performed By: #### L 3800.1700, L100.0100, L3410.9998, L500.2500 #### [facility] [address] [place], [address] Platelets (Bld) [#/Vol] 109 10*3/uL Low 150-450 [facility] Comment on above: Order Comment: 124.1 Performed By: #### L 3800.1700, L100.0100, L3410.9998, L500.2500 #### [facility] [address] [place], [address] RBC (Bld) [#/Vol] 3.63 10*6/uL Low 4.6-6.2 [facility] Comment on above: Order Comment: 124.1 Performed By: #### L 3800.1700, L100.0100, L3410.9998, L500.2500 #### [facility] [address] [place], [address] RDW SD 46.5 fl High 35.1-43.9 [facility] Comment on above: Order Comment: 124.1 Performed By: #### L 3800.1700, L100.0100, L3410.9998, L500.2500 #### [facility] [address] [place], [address] WBC (Bld) [#/Vol] 3.6 10*3/uL Low 4.4-11.0 [facility] Comment on above: Order Comment: 124.1 Performed By: #### L 3800.1700, L100.0100, L3410.9998, L500.2500 #### [facility] [address] [place], [address] Carbon dioxide, total [Moles /volume] in Central venous bloodOrdered By: Chris Winston on 07-09-2024 CO2 [Moles/Vol] 28.3 mmol/L 21.0-32.0 [facility] Chloride assayOrdered By: Margarita Winston on 07-09-2024 Chloride [Moles/Vol] 103 mmol/L 98-108 [facility] Eosinophil percentageOrdered By: Chris Winston on 07-09-2024 Eosinophils/100 WBC (Bld) 5.6 % High 0-5 [facility] Erythrocyte distribution wid th (RBC) [Ratio]Ordered By: Chris Winston on 07-09-2024 Erythrocyte distribution width (RBC) [Entitic vol] 46.5 fL High 35.1-43.9 [facility] Erythrocyte distribution wid th ratioOrdered By: Chris Winston on 07-09-2024 Erythrocyte distribution width (RBC) [Ratio] 12.9 % 11.6-14.6 [facility] GFR/1.73 sq M.predicted glenn g non-blacks MDRD (S/P/Bld) [Vol rate/Area]Ordered By: Chris Winston on 07-09-2024 Estimated GFR (MDRD) Non-Af Amer 100 >60 [facility] Comment on above: mL/min/1.73m2 CKD-EP I Creatinine Equation (2020) Hematocrit Auto (Bld) [Volum e fraction]Ordered By: Chris Winston on 07-09-2024 Hematocrit (Bld) [Volume fraction] 36.0 % Low 40-54 [facility] Hemoglobin measurementOrdere d By: Chris Winston on 07-09-2024 Hemoglobin (Bld) [Mass/Vol] 12.6 g/dL Low 13.0-16.5 [facility] Immature granulocytes/100 WB C Auto (Bld)Ordered By: Chris Winston on 07-09-2024 Immature granulocytes/100 WBC (Bld) 0.300 % 0.0-0.9 [facility] Comment on above: IG% - Immature Granu locytes (promyelocytes, myelocytes and metamyelocytes) > 1% indicates that a LEFT SHIFT is Present. Lymphocytes Auto (Unsp spec) [#/Vol]Ordered By: Chris Winston on 07-09-2024 Lymphocytes (Bld) [#/Vol] 0.94 10*3/uL 0.83-4.51 [facility] Lymphocytes/100 WBC Auto (Un sp spec)Ordered By: Chris Winston on 07-09-2024 Lymphocytes/100 WBC (Bld) 26.3 % 19-41 [facility] MCV (mean corpuscular volume ) determinationOrdered By: Chris Winston on 07-09-2024 MCV (RBC) [Entitic vol] 99.2 fL High 80-94 [facility] Mean corpuscular hemoglobin (MCH) determinationOrdered By: Chris Winston on 07-09-2024 MCH (RBC) [Entitic mass] 34.7 pg High 27.0-32.0 [facility] Mean corpuscular hemoglobin concentration (MCHC) determinationOrdered By: Chris Winston on 07-09-2024 MCHC (RBC) [Mass/Vol] 35.0 g/dL 32-36 [facility] Mean platelet volume determi nationOrdered By: Chris Winston on 07-09-2024 Platelet mean volume (Bld) [Entitic vol] 9.8 fL 6.2-12.0 [facility] Monocyte percentageOrdered B y: Chris Winston on 07-09-2024 Monocytes/100 WBC (Bld) 13.1 % High 0-10 [facility] Neutrophil percentageOrdered By: Chris Winston on 07-09-2024 Neutrophils/100 WBC (Bld) 53.6 % 47-70 [facility] Nucleated red blood cell per centageOrdered By: Chris Winston on 07-09-2024 Nucleated RBC/100 WBC (Bld) [Ratio] 0 % 0-5 [facility] Platelet countOrdered By: Margarita Winston on 07-09-2024 Platelets (Bld) [#/Vol] 109 10*3/uL Low 150-450 [facility] Potassium (Unsp spec) [Mass/ Vol]Ordered By: Chris Winston on 07-09-2024 Potassium [Moles/Vol] 3.7 mmol/L 3.3-5.1 [facility] RBC Auto (Bld) [#/Vol]Ordere d By: Chris Winston on 07-09-2024 RBC (Bld) [#/Vol] 3.63 10*6/uL Low 4.6-6.2 [facility] Serum creatinine measurement (mass/volume)Ordered By: Chris Winston on 07-09-2024 Creatinine [Mass/Vol] 0.64 mg/dL Low 0.70-1.20 [facility] Serum glucose measurement (m ass/volume)Ordered By: Chris Winston on 07-09-2024 Glucose [Mass/Vol] 98 mg/dL 70-99 [facility] Serum or plasma calcium rosalee urement (mass/volume)Ordered By: Chris Winston on 07-09-2024 Calcium [Mass/Vol] 8.6 mg/dL 7.6-11.0 [facility] Serum or plasma urea nitroge n measurement (mass/volume)Ordered By: Chris Winston on 07-09-2024 Urea nitrogen [Mass/Vol] 17 mg/dL 4-19 [facility] Sodium levelOrdered By: Chris Winston on 07-09-2024 Sodium [Moles/Vol] 139 mmol/L 133-145 [facility] White blood cell (WBC) count Ordered By: Chris Winston on 07-09-2024 WBC (Bld) [#/Vol] 3.6 10*3/uL Low 4.4-11.0 [facility] Absolute neutrophil countOrd ered By: Chris Winston on 05-14-2024 Neutrophils (Bld) [#/Vol] 1.4 10*3/uL Low 2.0-7.7 [facility] Automated blood erythrocyte countOrdered By: Chris Winston on 05-14-2024 RBC (Bld) [#/Vol] 3.63 10*6/uL Low 4.6-6.2 [facility] Comment on above: Order Comment: 124.1 SERUM ROOM TEMP [id number] LACOSAMIDE Performed By: #### L 3410.9992 #### [facility] [address] [place], [place], [address] Automated blood hematocrit ( percentage)Ordered By: Chris Winston on 05-14-2024 Hematocrit (Bld) [Volume fraction] 35.6 % Low 40-54 [facility] Comment on above: Order Comment: 124.1 SERUM ROOM TEMP [id number] LACOSAMIDE Performed By: #### L 3410.9992 #### [facility] [address] [place], [address] Automated lymphocyte count a s percentage of total leukocytesOrdered By: Chris Winston on 05-14-2024 Lymphocytes/100 WBC (Bld) 31.3 % Normal 19-41 [facility] Comment on above: Order Comment: 124.1 SERUM ROOM TEMP [id number] LACOSAMIDE Performed By: #### L 3410.9992 #### [facility] [address] [place], [address] Basophil percentageOrdered B y: Chris Winston on 05-14-2024 Basophils/100 WBC (Bld) 0.7 % Normal 0-1 [facility] Comment on above: Order Comment: 124.1 SERUM ROOM TEMP 245213 LACOSAMIDE Performed By: #### L 3410.9992 #### [facility] [address] [place], [address] CBC W/Diff, Automatedon 02- 0 Absolute Lymph 0.94 X10 3/uL Normal 0.83-4.51 [facility] Comment on above: Order Comment: 124.1 SERUM ROOM TEMP [id number] LACOSAMIDE Performed By: #### L 3410.9992 #### [facility] [address] [place], [address] Absolute Neut 1.4 X10 3/uL Low 2.0-7.7 [facility] Comment on above: Order Comment: 124.1 SERUM ROOM TEMP 710006 LACOSAMIDE Performed By: #### L 3410.9992 #### [facility] [address] [place], [address] IG% 0.300 Normal 0.0-0.9 [facility] Comment on above: Order Comment: 124.1 SERUM ROOM TEMP 545316 LACOSAMIDE Result Comment: IG% - Immature Granulocytes (promyelocytes, myelocytes and metamyelocytes) > 1% indicates that a LEFT SHIFT is Present. Performed By: #### L 3410.9992 #### [facility] [address] [place], [address] Nucleated RBC (Bld) [#/Vol] 0 10*3/uL Normal 0-5 [facility] Comment on above: Order Comment: 124.1 SERUM ROOM TEMP [id number] LACOSAMIDE Performed By: #### L 3410.9992 #### [facility] [address] [place], [place], [address] RDW SD 45.1 fl High 35.1-43.9 [facility] Comment on above: Order Comment: 124.1 SERUM ROOM TEMP [id number] LACOSAMIDE Performed By: #### L 3410.9992 #### [facility] [address] [place], [place], [address] Eosinophil percentageOrdered By: Chris Winston on 05-14-2024 Eosinophils/100 WBC (Bld) 6.3 % High 0-5 [facility] Comment on above: Order Comment: 124.1 SERUM ROOM TEMP [id number] LACOSAMIDE Performed By: #### L 3410.9992 #### [facility] [address] [place], [address] Erythrocyte distribution wid th (RBC) [Ratio]Ordered By: Chris Winston on 05-14-2024 Erythrocyte distribution width (RBC) [Entitic vol] 45.1 fL High 35.1-43.9 [facility] Erythrocyte distribution wid th ratioOrdered By: Chris Winston on 05-14-2024 Erythrocyte distribution width (RBC) [Ratio] 12.5 % Normal 11.6-14.6 [facility] Comment on above: Order Comment: 124.1 SERUM ROOM TEMP [id number] LACOSAMIDE Performed By: #### L 3410.9992 #### [facility] [address] [place], [place], [id number] Hemoglobin measurementOrdere d By: Chris Winston on 05-14-2024 Hemoglobin (Bld) [Mass/Vol] 12.4 g/dL Low 13.0-16.5 [facility] Comment on above: Order Comment: 124.1 SERUM ROOM TEMP [id number] LACOSAMIDE Performed By: #### L 3410.9992 #### [facility] [address] [place], [place], [phone] (250 Immature granulocytes/100 WB C Auto (Bld)Ordered By: Chris Winston on 05-14-2024 Immature granulocytes/100 WBC (Bld) 0.300 % 0.0-0.9 [facility] Comment on above: IG% - Immature Granu locytes (promyelocytes, myelocytes and metamyelocytes) > 1% indicates that a LEFT SHIFT is Present. Lymphocytes Auto (Unsp spec) [#/Vol]Ordered By: Chris Winston on 05-14-2024 Lymphocytes (Bld) [#/Vol] 0.94 10*3/uL 0.83-4.51 [facility] MCV (mean corpuscular volume ) determinationOrdered By: Chris Winston on 05-14-2024 MCV (RBC) [Entitic vol] 98.1 fL High 80-94 [facility] Comment on above: Order Comment: 124.1 SERUM ROOM TEMP [id number] LACOSAMIDE Performed By: #### L 3410.9992 #### [facility] [address] [place], [place], [id number] (193 Mean corpuscular hemoglobin (MCH) determinationOrdered By: Chris Winston on 05-14-2024 MCH (RBC) [Entitic mass] 34.2 pg High 27.0-32.0 [facility] Comment on above: Order Comment: 124.1 SERUM ROOM TEMP [id number] LACOSAMIDE Performed By: #### L 3410.9992 #### [facility] [address] [place], [address] Mean corpuscular hemoglobin concentration (MCHC) determinationOrdered By: Chris Winston on 05-14-2024 MCHC (RBC) [Mass/Vol] 34.8 g/dL Normal 32-36 [facility] Comment on above: Order Comment: 124.1 SERUM ROOM TEMP [id number] LACOSAMIDE Performed By: #### L 3410.9992 #### [facility] [address] [place], [place], [id number] (462 Mean platelet volume determi nationOrdered By: Chris Winston on 05-14-2024 Platelet mean volume (Bld) [Entitic vol] 10.0 fL Normal 6.2-12.0 [facility] Comment on above: Order Comment: 124.1 SERUM ROOM TEMP [id number] LACOSAMIDE Performed By: #### L 3410.9992 #### [facility] [address] [place], [address] Monocyte percentageOrdered B y: Chris Winston on 05-14-2024 Monocytes/100 WBC (Bld) 13.3 % High 0-10 [facility] Comment on above: Order Comment: 124.1 SERUM ROOM TEMP [id number] LACOSAMIDE Performed By: #### L 3410.9992 #### [facility] [address] [place], [address] Neutrophil percentageOrdered By: Chris Winston on 05-14-2024 Neutrophils/100 WBC (Bld) 48.1 % Normal 47-70 [facility] Comment on above: Order Comment: 124.1 SERUM ROOM TEMP [id number] LACOSAMIDE Performed By: #### L 3410.9992 #### [facility] [address] [place], [address] Nucleated red blood cell per centageOrdered By: Chris Winston on 05-14-2024 Nucleated RBC/100 WBC (Bld) [Ratio] 0 % 0-5 [facility] Platelet countOrdered By: Margarita Winston on 05-14-2024 Platelets (Bld) [#/Vol] 98 10*3/uL Low 150-450 [facility] Comment on above: Order Comment: 124.1 SERUM ROOM TEMP [id number] LACOSAMIDE Performed By: #### L 3410.9992 #### [facility] [address] [place], [address] White blood cell (WBC) count Ordered By: Chris Winston on 05-14-2024 WBC (Bld) [#/Vol] 3.0 10*3/uL Low 4.4-11.0 [facility] Comment on above: Order Comment: 124.1 SERUM ROOM TEMP [id number] LACOSAMIDE Performed By: #### L 3410.9992 #### [facility] [address] [place], [place], [address] L3410.9999on 04-16-2024 [facility] [place] COMMENT Normal . [facility] Comment on above: Order Comment: 124.1 SERUM ROOM TEMP [id number] LACOSAMIDE Result Comment: Test Ordered: [id number] Lacosamide Test(s) 239512-Oeksoqcsyc was developed and its performance characteristics determined by [employer]. It has not been cleared or approved by the Food and Drug Administration. Lacosamide 13.4 [H ] ug/mL Reference Range: 5.0-10.0 Limit of Detection 0.5 Mean plasma concentrations following maintenance dose 200 mg/day 4.99 +/- 2.51 ug/mL 400 mg/day 9.35 +/- 4.22 ug/mL 600 mg/day 12.46 +/- 5.60 ug/mL Performed at: [address] [id number] Certified Forklift Operator: Mindy Parkinson MD, Phone: [phone] Performed at: [address] [id number] Certified Forklift Operator: Cooper Malcolm PhD, Phone: [phone] Performed By: #### L 3410.9992 #### [facility] [address] [place], [place], [address] Trileptal-Oxcarbazepineon OXCARBAZEPINE 28 ug/mL Normal 10-35 [facility] Comment on above: Order Comment: 124.1 SERUM ROOM TEMP [id number] LACOSAMIDE Result Comment: This test was developed and its performance characteristics determined by [employer]. It has not been cleared or approved by the Food and Drug Administration. Detection Limit = 1 Performed at: [address] [id number] Certified Forklift Operator: Mindy Parkinson MD, Phone: [phone] Performed By: #### L 3410.9992 #### [facility] [address] [place], [address] Absolute neutrophil countOrd ered By: Chris Winston on 04-10-2024 Neutrophils (Bld) [#/Vol] 1.0 10*3/uL Low 2.0-7.7 [facility] Basic Metabolic Profile (BMP )on 04-10-2024 BUN/CRE 23.4 RATIO High 10-20 [facility] Comment on above: Performed By: #### L 3410.9992 #### [facility] [address] [place], [address] CA,Total 8.7 mg/dL Normal 8.5-10.1 [facility] Comment on above: Performed By: #### L 3410.9992 #### [facility] [address] [place], [address] Chloride [Moles/Vol] 107 mmol/L Normal 98-107 [facility] Comment on above: Performed By: #### L 3410.9992 #### [facility] [address] [place], [address] CO2 [Moles/Vol] 32.0 mmol/L Normal 21.0-32.0 [facility] Comment on above: Performed By: #### L 3410.9992 #### [facility] [address] [place], [address] Creatinine [Mass/Vol] 0.68 mg/dL Low 0.70-1.30 [facility] Comment on above: Result Comment: The validity of the calculated GFR GFRAA in patients over 70 years has not been determined. Clinical correlation is essential. Performed By: #### L 3410.9992 #### [facility] [address] [place], [address] EST GFR - AA 146 mL/min Normal >60 [facility] Comment on above: Result Comment: Afri can Cypriot GFR Calc Performed By: #### L 3410.9992 #### [facility] [address] [place], [address] GAP 3 Low 5-15 [facility] Comment on above: Performed By: #### L 3410.9992 #### [facility] [address] [place], [address] GFR/1.73 sq M.predicted among non-blacks MDRD (S/P/Bld) [Vol rate/Area] 120 mL/min/{1.73_m2} Normal >60 [facility] Comment on above: Result Comment: Non- GFR Calc Performed By: #### L 3410.9992 #### [facility] [address] [place], [address] Glucose [Mass/Vol] 106 mg/dL Normal 74-106 [facility] Comment on above: Result Comment: Fast ing Glucose result from 100 to 125 mg/dL suggests IMPAIRED HOMEOSTASIS per A.D.A. criteria. Performed By: #### L 3410.9992 #### [facility] [address] [place], [address] Potassium [Moles/Vol] 3.8 mmol/L Normal 3.5-5.1 [facility] Comment on above: Performed By: #### L 3410.9992 #### [facility] [address] [place], [address] Sodium [Moles/Vol] 142 mmol/L Normal 136-145 [facility] Comment on above: Performed By: #### L 3410.9992 #### [facility] [address] [place], [address] Urea nitrogen [Mass/Vol] 16 mg/dL Normal 7-18 [facility] Comment on above: Performed By: #### L 3410.9992 #### [facility] [address] [place], [address] Basophil percentageOrdered B y: Chris Winston on 04-10-2024 Basophils/100 WBC (Bld) 0.5 % 0-1 [facility] Blood urea nitrogen (BUN)/cr eatinine ratioOrdered By: Chris Winston on 04-10-2024 Urea nitrogen/Creatinine [Mass ratio] 23.4 mg/mg High 10-20 [facility] CBC W/Diff, Automatedon Absolute Lymph 0.69 X10 3/uL Low 0.83-4.51 [facility] Comment on above: Order Comment: 124.1 SERUM ROOM TEMP 132352 LACOSAMIDE Performed By: #### L 3410.9992 #### [facility] [address] [place], [address] Absolute Neut 1.0 X10 3/uL Low 2.0-7.7 [facility] Comment on above: Order Comment: 124.1 SERUM ROOM TEMP [id number] LACOSAMIDE Performed By: #### L 3410.9992 #### [facility] [address] [place], [address] Basophils/100 WBC (Bld) 0.5 % Normal 0-1 [facility] Comment on above: Order Comment: 124.1 SERUM ROOM TEMP [id number] LACOSAMIDE Performed By: #### L 3410.9992 #### [facility] [address] [place], [address] Eosinophils/100 WBC (Bld) 5.3 % High 0-5 [facility] Comment on above: Order Comment: 124.1 SERUM ROOM TEMP [id number] LACOSAMIDE Performed By: #### L 3410.9992 #### [facility] [address] [place], [address] Erythrocyte distribution width (RBC) [Ratio] 12.7 % Normal 11.6-14.6 [facility] Comment on above: Order Comment: 124.1 SERUM ROOM TEMP [id number] LACOSAMIDE Performed By: #### L 3410.9992 #### [facility] [address] [place], [address] Hematocrit (Bld) [Volume fraction] 36.9 % Low 40-54 [facility] Comment on above: Order Comment: 124.1 SERUM ROOM TEMP [id number] LACOSAMIDE Performed By: #### L 3410.9992 #### [facility] [address] [place], [address] Hemoglobin (Bld) [Mass/Vol] 12.4 g/dL Low 13.0-16.5 [facility] Comment on above: Order Comment: 124.1 SERUM ROOM TEMP [id number] LACOSAMIDE Performed By: #### L 3410.9992 #### [facility] [address] [place], [address] IG% 0.000 Normal 0.0-0.9 [facility] Comment on above: Order Comment: 124.1 SERUM ROOM TEMP [id number] LACOSAMIDE Result Comment: IG% - Immature Granulocytes (promyelocytes, myelocytes and metamyelocytes) > 1% indicates that a LEFT SHIFT is Present. Performed By: #### L 3410.9992 #### [facility] [address] [place], [address] Lymphocytes/100 WBC (Bld) 33.2 % Normal 19-41 [facility] Comment on above: Order Comment: 124.1 SERUM ROOM TEMP [id number] LACOSAMIDE Performed By: #### L 3410.9992 #### [facility] [address] [place], [address] MCH (RBC) [Entitic mass] 33.4 pg High 27.0-32.0 [facility] Comment on above: Order Comment: 124.1 SERUM ROOM TEMP [id number] LACOSAMIDE Performed By: #### L 3410.9992 #### [facility] [address] [place], [address] MCHC (RBC) [Mass/Vol] 33.6 g/dL Normal 32-36 [facility] Comment on above: Order Comment: 124.1 SERUM ROOM TEMP [id number] LACOSAMIDE Performed By: #### L 3410.9992 #### [facility] [address] [place], [address] MCV (RBC) [Entitic vol] 99.5 fL High 80-94 [facility] Comment on above: Order Comment: 124.1 SERUM ROOM TEMP 004804 LACOSAMIDE Performed By: #### L 3410.9992 #### [facility] [address] [place], [address] Monocytes/100 WBC (Bld) 12.5 % High 0-10 [facility] Comment on above: Order Comment: 124.1 SERUM ROOM TEMP 564999 LACOSAMIDE Performed By: #### L 3410.9992 #### [facility] [address] [place], [address] Neutrophils/100 WBC (Bld) 48.5 % Normal 47-70 [facility] Comment on above: Order Comment: 124.1 SERUM ROOM TEMP [id number] LACOSAMIDE Performed By: #### L 3410.9992 #### [facility] [address] [place], [address] Nucleated RBC (Bld) [#/Vol] 0 10*3/uL Normal 0-5 [facility] Comment on above: Order Comment: 124.1 SERUM ROOM TEMP [id number] LACOSAMIDE Performed By: #### L 3410.9992 #### [facility] [address] [place], [address] Platelet mean volume (Bld) [Entitic vol] 10.2 fL Normal 6.2-12.0 [facility] Comment on above: Order Comment: 124.1 SERUM ROOM TEMP 687015 LACOSAMIDE Performed By: #### L 3410.9992 #### [facility] [address] [place], [address] Platelets (Bld) [#/Vol] 82 10*3/uL Low 150-450 [facility] Comment on above: Order Comment: 124.1 SERUM ROOM TEMP 679104 LACOSAMIDE Performed By: #### L 3410.9992 #### [facility] [address] [place], [address] RBC (Bld) [#/Vol] 3.71 10*6/uL Low 4.6-6.2 [facility] Comment on above: Order Comment: 124.1 SERUM ROOM TEMP [id number] LACOSAMIDE Performed By: #### L 3410.9992 #### [facility] [address] [place], [address] RDW SD 46.8 fl High 35.1-43.9 [facility] Comment on above: Order Comment: 124.1 SERUM ROOM TEMP [id number] LACOSAMIDE Performed By: #### L 3410.9992 #### [facility] [address] [place], [address] WBC (Bld) [#/Vol] 2.1 10*3/uL Low 4.4-11.0 [facility] Comment on above: Order Comment: 124.1 SERUM ROOM TEMP 264896 LACOSAMIDE Performed By: #### L 3410.9992 #### [facility] [address] [place], [address] Carbon dioxide measurementOr dered By: Chris Winston on 04-10-2024 CO2 [Moles/Vol] 32.0 mmol/L 21.0-32.0 [facility] Chloride measurementOrdered By: Chris Winston on 04-10-2024 Chloride [Moles/Vol] 107 mmol/L 98-107 [facility] Eosinophil percentageOrdered By: Chris Winston on 04-10-2024 Eosinophils/100 WBC (Bld) 5.3 % High 0-5 [facility] Erythrocyte distribution wid th (RBC) [Ratio]Ordered By: Chris Winston on 04-10-2024 Erythrocyte distribution width (RBC) [Entitic vol] 46.8 fL High 35.1-43.9 [facility] Erythrocyte distribution wid th ratioOrdered By: Chris Winston on 04-10-2024 Erythrocyte distribution width (RBC) [Ratio] 12.7 % 11.6-14.6 [facility] Estimated glomerular filtrat ion rate (GFR) AmericanOrdered By: Chris Winston on 04-10-2024 Estimated GFR (MDRD) Amer 146 mL/min >60 [facility] Comment on above: GFR Calc Glomerular filtration rate ( GFR) estimationOrdered By: Chris Winston on 04-10-2024 Estimated GFR (MDRD) Non-Af Amer 120 mL/min >60 [facility] Comment on above: Non- GFR Calc Glucose measurementOrdered B y: Chris Winston on 04-10-2024 Glucose [Mass/Vol] 106 mg/dL 74-106 [facility] Comment on above: Fasting Glucose resu lt from 100 to 125 mg/dL suggests IMPAIRED HOMEOSTASIS per A.D.A. criteria. Hematocrit Auto (Bld) [Volum e fraction]Ordered By: Chris Winston on 04-10-2024 Hematocrit (Bld) [Volume fraction] 36.9 % Low 40-54 [facility] Hemoglobin measurementOrdere d By: Chris Winston on 04-10-2024 Hemoglobin (Bld) [Mass/Vol] 12.4 g/dL Low 13.0-16.5 [facility] Immature granulocytes/100 WB C Auto (Bld)Ordered By: Chris Winston on 04-10-2024 Immature granulocytes/100 WBC (Bld) 0.000 % 0.0-0.9 [facility] Comment on above: IG% - Immature Granu locytes (promyelocytes, myelocytes and metamyelocytes) > 1% indicates that a LEFT SHIFT is Present. Lymphocytes Auto (Unsp spec) [#/Vol]Ordered By: Chris Winston on 04-10-2024 Lymphocytes (Bld) [#/Vol] 0.69 10*3/uL Low 0.83-4.51 [facility] Lymphocytes/100 WBC Auto (Un sp spec)Ordered By: Chris Winston on 04-10-2024 Lymphocytes/100 WBC (Bld) 33.2 % 19-41 [facility] MCV (mean corpuscular volume ) determinationOrdered By: Chris Winston on 04-10-2024 MCV (RBC) [Entitic vol] 99.5 fL High 80-94 [facility] Mean corpuscular hemoglobin (MCH) determinationOrdered By: Chris Winston on 04-10-2024 MCH (RBC) [Entitic mass] 33.4 pg High 27.0-32.0 [facility] Mean corpuscular hemoglobin concentration (MCHC) determinationOrdered By: Chris Winston on 04-10-2024 MCHC (RBC) [Mass/Vol] 33.6 g/dL 32-36 [facility] Mean platelet volume determi nationOrdered By: Chris Winston on 04-10-2024 Platelet mean volume (Bld) [Entitic vol] 10.2 fL 6.2-12.0 [facility] Monocyte percentageOrdered B y: Chris Winston on 04-10-2024 Monocytes/100 WBC (Bld) 12.5 % High 0-10 [facility] Neutrophil percentageOrdered By: Chris Winston on 04-10-2024 Neutrophils/100 WBC (Bld) 48.5 % 47-70 [facility] No Panel InformationOrdered By: Chris Winston on 04-10-2024 Miscellaneous Test COMMENT . [facility] Comment on above: Test Ordered: [id number] LacosamideTest(s) 529930-Nhyfxifazowcp developed and its performance characteristicsdetermined by [employer]. It has not been cleared or approvedby the Food and Drug Administration.Lacosamide 13.4 [H ] ug/mL Reference Range: 5.0-10.0 Limit of Detection 0.5 Mean plasma concentrations following maintenance dose 200 mg/day 4.99 +/- 2.51 ug/mL 400 mg/day 9.35 +/- 4.22 ug/mL 600 mg/day 12.46 +/- 5.60 ug/mLPerformed at: - [address] [id number] Director: Mindy Parkinson MD, Phone: [phone] at: [facility] [employer] [id number] Director: Cooper Malcolm PhD, Phone: [phone] Nucleated red blood cell per centageOrdered By: Chris Winston on 04-10-2024 Nucleated RBC/100 WBC (Bld) [Ratio] 0 % 0-5 [facility] OXcarbazepine [Mass/Vol]Orde red By: Chris Winston on 04-10-2024 Oxcarbazepine Level 28 ug/mL 10-35 [facility] Comment on above: This test was develo ped and its performance characteristicsdetermined by [employer]. It has not been cleared orapproved by the Food and Drug Administration. Detection Limit = 1Performed at: [facility] [address] [id number] Director: Mindy Parkinson MD, Phone: [phone] Platelet countOrdered By: Margarita Winston on 04-10-2024 Platelets (Bld) [#/Vol] 82 10*3/uL Low 150-450 [facility] Potassium measurementOrdered By: Chris Winston on 04-10-2024 Potassium [Moles/Vol] 3.8 mmol/L 3.5-5.1 [facility] RBC Auto (Bld) [#/Vol]Ordere d By: Chris Winston on 04-10-2024 RBC (Bld) [#/Vol] 3.71 10*6/uL Low 4.6-6.2 [facility] Serum anion gap measurementO rdered By: Chris Winston on 04-10-2024 Anion gap [Moles/Vol] 3 mmol/L Low 5-15 [facility] Serum or plasma calcium rosalee urement (mass/volume)Ordered By: Chris Winston on 04-10-2024 Calcium [Mass/Vol] 8.7 mg/dL 8.5-10.1 [facility] Serum or plasma creatinine m easurement (mass/volume)Ordered By: Chris Winston on 04-10-2024 Creatinine [Mass/Vol] 0.68 mg/dL Low 0.70-1.30 [facility] Comment on above: The validity of the calculated GFR & GFRAA in patients over 70 years has not been determined. Clinical correlation is essential. Serum or plasma urea nitroge n measurement (mass/volume)Ordered By: Chris Winston on 04-10-2024 Urea nitrogen [Mass/Vol] 16 mg/dL 7-18 [facility] Sodium levelOrdered By: Chris Winston on 04-10-2024 Sodium [Moles/Vol] 142 mmol/L 136-145 [facility] White blood cell (WBC) count Ordered By: Chris Winston on 04-10-2024 WBC (Bld) [#/Vol] 2.1 10*3/uL Low 4.4-11.0 [facility] Bilirubin directOrdered By: Chris Winston on 03-13-2024 Bilirubin.direct [Mass/Vol] 0.15 mg/dL 0.00-0.30 [facility] Bilirubin, totalOrdered By: Chris Winston on 03-13-2024 Bilirubin [Mass/Vol] 0.70 mg/dL 0.20-1.00 [facility] Comment on above: For patients on eltr ombopag therapy, use of Dimension [place] TBIL is not recommended. Laboratory - Chemistry and C hemistry - challengeOrdered By: Chris Winston on 03-13-2024 AST [Catalytic activity/Vol] 25 U/L 15-37 [facility] Liver Profileon 03-13-2024 Albumin [Mass/Vol] 2.9 g/dL Low 3.2-5.0 [facility] Comment on above: Order Comment: 124 Performed By: #### L 500.3400 #### [facility] [address] [place], [place], [id number] ALK P 89 U/L Normal 45-117 [facility] Comment on above: Order Comment: 124 Performed By: #### L 500.3400 #### [facility] [address] [place], [place], [id number] ALT [Catalytic activity/Vol] 20 U/L Normal 16-61 [facility] Comment on above: Order Comment: 124 Performed By: #### L 500.3400 #### [facility] [address] [place], [address] AST [Catalytic activity/Vol] 25 U/L Normal 15-37 [facility] Comment on above: Order Comment: 124 Performed By: #### L 500.3400 #### [facility] [address] [place], [address] Bilirubin [Mass/Vol] 0.70 mg/dL Normal 0.20-1.00 [facility] Comment on above: Order Comment: 124 Result Comment: For patients on eltrombopag therapy, use of Dimension [place] TBIL is not recommended. Performed By: #### L 500.3400 #### [facility] [address] [place], [address] Bilirubin.direct [Mass/Vol] 0.15 mg/dL Normal 0.00-0.30 [facility] Comment on above: Order Comment: 124 Performed By: #### L 500.3400 #### [facility] [address] [place], [address] Globulin (S) [Mass/Vol] 3.8 g/dL Normal 2.2-4.2 [facility] Comment on above: Order Comment: 124 Performed By: #### L 500.3400 #### [facility] [address] [place], [address] T PROT 6.7 g/dL Normal 6.4-8.2 [facility] Comment on above: Order Comment: 124 Performed By: #### L 500.3400 #### [facility] [address] [place], [address] Serum globulin measurementOr dered By: Chris Winston on 03-13-2024 Globulin (S) [Mass/Vol] 3.8 g/dL 2.2-4.2 [facility] Serum or plasma alanine ferraro otransferase (ALT) measurementOrdered By: Chris Winston on 03-13-2024 ALT [Catalytic activity/Vol] 20 U/L 16-61 [facility] Serum or plasma albumin rosalee urement (mass/volume)Ordered By: Chris Winston on 03-13-2024 Albumin [Mass/Vol] 2.9 g/dL Low 3.2-5.0 [facility] Serum or plasma alkaline scott sphatase measurementOrdered By: Chris Winston on 03-13-2024 ALP [Catalytic activity/Vol] 89 U/L 45-117 [facility] Total proteinOrdered By: Michael Winston on 03-13-2024 Protein [Mass/Vol] 6.7 g/dL 6.4-8.2 [facility] Absolute lymphocyte countOrd ered By: Chris Winston on 07-11-2023 Lymphocytes Auto (Unsp spec) [#/Vol] 0.99 10*3/uL 0.83-4.51 [facility] Automated lymphocyte count a s percentage of total leukocytesOrdered By: Chris Winston on 07-11-2023 Lymphocytes/100 WBC Auto (Unsp spec) 32.5 % 19-41 [facility] Basophil percentageOrdered B y: Chris Winston on 07-11-2023 Basophils/100 WBC (Bld) 1.0 % 0-1 [facility] Chloride [Moles/Vol] 104 mmol/L 98-107 [facility] Eosinophils/100 WBC (Bld) 8.2 % 0-5 [facility] Glucose [Mass/Vol] 90 mg/dL 74-106 [facility] Hemoglobin (Bld) [Mass/Vol] 12.3 g/dL 13.0-16.5 [facility] Monocytes/100 WBC (Bld) 12.5 % 0-10 [facility] Neutrophils (Bld) [#/Vol] 1.4 10*3/uL 2.0-7.7 [facility] Neutrophils/100 WBC (Bld) 45.5 % 47-70 [facility] Potassium [Moles/Vol] 3.4 mmol/L 3.5-5.1 [facility] Sodium [Moles/Vol] 138 mmol/L 136-145 [facility] WBC (Bld) [#/Vol] 3.1 10*3/uL 4.4-11.0 [facility] Determination of erythrocyte mean corpuscular volume (MCV)Ordered By: Chris Winston on 04-08-2024 MCV (RBC) [Entitic vol] 97.3 fL 80-94 [facility] Erythrocyte distribution wid th ratioOrdered By: Chris Winston on 07-11-2023 Erythrocyte distribution width (RBC) [Ratio] 12.6 % 11.6-14.6 [facility] Erythrocyte distribution wid th standard deviationOrdered By: Chris Winston on 07-11-2023 Erythrocyte distribution width (RBC) [Entitic vol] 45.5 fL 35.1-43.9 [facility] Hematocrit Auto (Bld) [Volum e fraction]Ordered By: Chris Winston on 07-11-2023 Hematocrit (Bld) [Volume fraction] 35.7 % 40-54 [facility] Immature granulocytes/100 WB C Auto (Bld)Ordered By: Chris Winston on 07-11-2023 Immature granulocytes/100 WBC (Bld) 0.300 % 0.0-0.9 [facility] Comment on above: IG% - Immature Granu locytes (promyelocytes, myelocytes and metamyelocytes) > 1% indicates that a LEFT SHIFT is Present. Laboratory - Chemistry and C hemistry - challengeOrdered By: Chris Winston on 07-11-2023 CO2 [Moles/Vol] 29.0 mmol/L 21.0-32.0 [facility] Urea nitrogen/Creatinine [Mass ratio] 28.9 mg/mg 10-20 [facility] Laboratory - Hematology and Cell countsOrdered By: Chris Winston on 07-11-2023 MCH (RBC) [Entitic mass] 33.5 pg 27.0-32.0 [facility] MCHC (RBC) [Mass/Vol] 34.5 g/dL 32-36 [facility] Nucleated RBC/100 WBC (Bld) [Ratio] 0 % 0-5 [facility] Platelet mean volume (Bld) [Entitic vol] 9.7 fL 6.2-12.0 [facility] Platelets (Bld) [#/Vol] 92 10*3/uL 150-450 [facility] No Panel InformationOrdered By: Chris Winston on 07-11-2023 Estimated GFR (MDRD) Amer 163 mL/min >60 [facility] Comment on above: GFR Calc Estimated GFR (MDRD) Non-Af Amer 135 mL/min >60 [facility] Comment on above: Non- GFR Calc Miscellaneous Test See comment [facility] Comment on above: TEST RESULTS LIMITSG abapentin (Neurontin), Serum Gabapentin, Serum 8.3 ug/mL 4.0-16.0 Detection Limit = 1.0 TESTING PERFORMED AT [facility]. ORIGINAL REPORT ON FILE IN LAB CONTAINS ADDITIONAL TEST SITE INFORMATION. RBC Auto (Bld) [#/Vol]Ordere d By: Chris Winston on 07-11-2023 RBC (Bld) [#/Vol] 3.67 10*6/uL 4.6-6.2 [facility] Serum or plasma calcium rosalee urement (mass/volume)Ordered By: Chris Winston on 07-11-2023 Calcium [Mass/Vol] 8.3 mg/dL 8.5-10.1 [facility] Serum or plasma creatinine m easurement (mass/volume)Ordered By: Chris Winston on 07-11-2023 Creatinine [Mass/Vol] 0.62 mg/dL 0.70-1.30 [facility] Comment on above: The validity of the calculated GFR & GFRAA in patients over 70 years has not been determined. Clinical correlation is essential. Serum or plasma oxcarbazepin e measurement (mass/volume)Ordered By: Chris Winston on 07-11-2023 OXcarbazepine [Mass/Vol] 26 ug/mL 10-35 [facility] Comment on above: This test was develo ped and its performance characteristicsdetermined by [employer]. It has not been cleared orapproved by the Food and Drug Administration. Detection Limit = 1Performed at: [address] [id number] Director: Mindy Parkinson MD, Phone: [phone] Serum or plasma urea nitroge n measurement (mass/volume)Ordered By: Chris Winston on 07-11-2023 Urea nitrogen [Mass/Vol] 18 mg/dL 7-18 [facility] Thin prep Papanicolaou smear with manual screeningOrdered By: Chris Winston on 07-11-2023 Thin prep Papanicolaou smear with manual screening 5 5-15 [facility] Absolute lymphocyte countOrd ered By: Chris Winston on 04-11-2023 Lymphocytes Auto (Unsp spec) [#/Vol] 0.92 10*3/uL 0.83-4.51 [facility] Basophil percentageOrdered B y: Chris Winston on 04-11-2023 Basophils/100 WBC (Bld) 0.6 % 0-1 [facility] Chloride [Moles/Vol] 105 mmol/L 98-107 [facility] Eosinophils/100 WBC (Bld) 6.8 % 0-5 [facility] Glucose [Mass/Vol] 115 mg/dL 74-106 [facility] Comment on above: Fasting Glucose resu lt from 100 to 125 mg/dL suggests IMPAIRED HOMEOSTASIS per A.D.A. criteria. Neutrophils (Bld) [#/Vol] 1.6 10*3/uL 2.0-7.7 [facility] Neutrophils/100 WBC (Bld) 51.0 % 47-70 [facility] Potassium [Moles/Vol] 3.6 mmol/L 3.5-5.1 [facility] Sodium [Moles/Vol] 140 mmol/L 136-145 [facility] WBC (Bld) [#/Vol] 3.2 10*3/uL 4.4-11.0 [facility] Blood erythrocytes count (nu mber/volume)Ordered By: Chris Winston on 04-11-2023 RBC (Bld) [#/Vol] 3.61 10*6/uL 4.6-6.2 [facility] Blood hemoglobin measurement (mass/volume)Ordered By: Chris Winston on 04-11-2023 Hemoglobin (Bld) [Mass/Vol] 12.4 g/dL 13.0-16.5 [facility] Blood lymphocytes/100 leukoc ytesOrdered By: Chris Winston on 04-11-2023 Lymphocytes/100 WBC (Bld) 28.6 % 19-41 [facility] Blood monocytes/100 leukocyt esOrdered By: Chris Winston on 04-11-2023 Monocytes/100 WBC (Bld) 13.0 % 0-10 [facility] Blood platelet mean volumeOr dered By: Chris Winston on 04-11-2023 Platelet mean volume (Bld) [Entitic vol] 10.0 fL 6.2-12.0 [facility] Determination of erythrocyte mean corpuscular volume (MCV)Ordered By: Chris Winston on 04-11-2023 MCV (RBC) [Entitic vol] 101.9 fL 80-94 [facility] Hematocrit Auto (Bld) [Volum e fraction]Ordered By: Chris Winston on 04-11-2023 Hematocrit (Bld) [Volume fraction] 36.8 % 40-54 [facility] Laboratory - Chemistry and C hemistry - challengeOrdered By: Chris Winston on 04-11-2023 CO2 [Moles/Vol] 34.0 mmol/L 21.0-32.0 [facility] Urea nitrogen/Creatinine [Mass ratio] 18.4 mg/mg 10-20 [facility] Laboratory - Hematology and Cell countsOrdered By: Chris Winston on 04-11-2023 Erythrocyte distribution width (RBC) [Entitic vol] 49.4 fL 35.1-43.9 [facility] Erythrocyte distribution width (RBC) [Ratio] 13.1 % 11.6-14.6 [facility] Immature granulocytes/100 WBC (Bld) 0.000 % 0.0-0.9 [facility] Comment on above: IG% - Immature Granu locytes (promyelocytes, myelocytes and metamyelocytes) > 1% indicates that a LEFT SHIFT is Present. MCH (RBC) [Entitic mass] 34.3 pg 27.0-32.0 [facility] Nucleated RBC/100 WBC (Bld) [Ratio] 0 % 0-5 [facility] MCHC Auto (RBC) [Mass/Vol]Or dered By: Chris Winston on 04-11-2023 MCHC (RBC) [Mass/Vol] 33.7 g/dL 32-36 [facility] No Panel InformationOrdered By: Chris Winston on 04-11-2023 Estimated GFR (MDRD) Amer 141 mL/min >60 [facility] Comment on above: GFR Calc Estimated GFR (MDRD) Non-Af Amer 117 mL/min >60 [facility] Comment on above: Non- GFR Calc Miscellaneous Test See comment [facility] Comment on above: TEST RESULT LIMITSLa cosamide, 13.4 High ug/mL 5.0-10.0 Limit of Detection 0.5 Mean plasma concentrations following maintenance dose 200 mg/day 4.99 +/- 2.51 ug/mL 400 mg/day 9.35 +/- 4.22 ug/mL 600 mg/day 12.46 +/- 5.60 ug/mL TESTING PERFORMED AT [facility]. ORIGINAL REPORT ON FILE IN LAB CONTAINS ADDITIONAL TEST SITE INFORMATION. Platelets bldOrdered By: Michael Winston on 04-11-2023 Platelets (Bld) [#/Vol] 104 10*3/uL 150-450 [facility] Serum or plasma calcium rosalee urement (mass/volume)Ordered By: Chris Winston on 04-11-2023 Calcium [Mass/Vol] 9.0 mg/dL 8.5-10.1 [facility] Serum or plasma creatinine m easurement (mass/volume)Ordered By: Chris Winston on 04-11-2023 Creatinine [Mass/Vol] 0.70 mg/dL 0.70-1.30 [facility] Comment on above: The validity of the calculated GFR & GFRAA in patients over 70 years has not been determined. Clinical correlation is essential. Serum or plasma oxcarbazepin e measurement (mass/volume)Ordered By: Chris Winston on 04-11-2023 OXcarbazepine [Mass/Vol] 27 ug/mL 10- [facility] Comment on above: This test was develo ped and its performance characteristicsdetermined by [employer]. It has not been cleared orapproved by the Food and Drug Administration. Detection Limit = 1Performed at: [facility] [employer] [id number] [place], [place] [id number] Director: Mindy Parkinson MD, Phone: [phone] Serum or plasma urea nitroge n measurement (mass/volume)Ordered By: Chris Winston on 04-11-2023 Urea nitrogen [Mass/Vol] 13 mg/dL 7-18 [facility] Thin prep Papanicolaou smear with manual screeningOrdered By: Chris Winston on 04-11-2023 Thin prep Papanicolaou smear with manual screening 1 5-15 [facility] Basophil percentageOrdered B y: Chris Winston on 03-08-2023 Bilirubin [Mass/Vol] 0.50 mg/dL 0.20-1.00 [facility] Comment on above: For patients on eltr ombopag therapy, use of Dimension [place] TBIL is not recommended. Protein [Mass/Vol] 6.4 g/dL 6.4-8.2 [facility] Direct bilirubinOrdered By: Chris Winston on 03-08-2023 Bilirubin.direct [Mass/Vol] 0.16 mg/dL 0.00-0.30 [facility] Laboratory - Chemistry and C hemistry - challengeOrdered By: Chris Winston on 03-08-2023 ALP [Catalytic activity/Vol] 82 U/L 45-117 [facility] ALT [Catalytic activity/Vol] 21 U/L 16-61 [facility] Globulin (S) [Mass/Vol] 3.9 g/dL 2.2-4.2 [facility] Serum or plasma albumin rosalee urement (mass/volume)Ordered By: Chris Winston on 03-08-2023 Albumin [Mass/Vol] 2.5 g/dL 3.2-5.0 [facility] Thin prep Papanicolaou smear with manual screeningOrdered By: Chris Winston on 03-08-2023 Thin prep Papanicolaou smear with manual screening 27 U/L 15-37 [facility] Basophil percentageOrdered B y: Chris Winston on 02-16-2023 Chloride [Moles/Vol] 106 mmol/L 98-107 [facility] Potassium [Moles/Vol] 3.6 mmol/L 3.5-5.1 [facility] Sodium [Moles/Vol] 144 mmol/L 136-145 [facility] Laboratory - Chemistry and C hemistry - challengeOrdered By: Chris Winston on 02-16-2023 CO2 [Moles/Vol] 32.0 mmol/L 21.0-32.0 [facility] Thin prep Papanicolaou smear with manual screeningOrdered By: Chris Winston on 02-16-2023 Thin prep Papanicolaou smear with manual screening 6 - [facility] Absolute lymphocyte countOrd ered By: Chris Winston on 01-10-2023 Lymphocytes Auto (Unsp spec) [#/Vol] 1.29 10*3/uL 0.83-4.51 [facility] Basophil percentageOrdered B y: Chris Winston on 01-10-2023 Basophils/100 WBC (Bld) 1.5 % 0-1 [facility] Chloride [Moles/Vol] 106 mmol/L 98-107 [facility] Cholesterol [Mass/Vol] 189 mg/dL <200 [facility] Comment on above: <200 mg/dL Desirable 200-240 mg/dL Borderline >240 mg/dL High Risk Eosinophils/100 WBC (Bld) 11.5 % 0-5 [facility] Glucose [Mass/Vol] 102 mg/dL 74-106 [facility] Comment on above: Fasting Glucose resu lt from 100 to 125 mg/dL suggests IMPAIRED HOMEOSTASIS per A.D.A. criteria. Neutrophils (Bld) [#/Vol] 1.8 10*3/uL 2.0-7.7 [facility] Neutrophils/100 WBC (Bld) 44.7 % 47-70 [facility] Potassium [Moles/Vol] 3.1 mmol/L 3.5-5.1 [facility] Sodium [Moles/Vol] 141 mmol/L 136-145 [facility] Triglyceride [Mass/Vol] 94 mg/dL <199 [facility] Comment on above: The drugs N-Acetylcy steine and Metamizole may falsely depress this assay.Serum Triglycerides Reference Interval Normal <150 mg/dL Borderline high 150 - 199 mg/dL High 200 - 499 mg/dL Very High > or = 500 mg/dL WBC (Bld) [#/Vol] 4.1 10*3/uL 4.4-11.0 [facility] Blood erythrocytes count (nu mber/volume)Ordered By: Chris Winston on 01-10-2023 RBC (Bld) [#/Vol] 3.94 10*6/uL 4.6-6.2 [facility] Blood hemoglobin measurement (mass/volume)Ordered By: Chris Winston on 01-10-2023 Hemoglobin (Bld) [Mass/Vol] 13.3 g/dL 13.0-16.5 [facility] Blood lymphocytes/100 leukoc ytesOrdered By: Chris Winston on 01-10-2023 Lymphocytes/100 WBC (Bld) 31.7 % 19-41 [facility] Blood monocytes/100 leukocyt esOrdered By: Chris Winston on 01-10-2023 Monocytes/100 WBC (Bld) 10.6 % 0-10 [facility] Blood platelet mean volumeOr dered By: Chris Winston on 01-10-2023 Platelet mean volume (Bld) [Entitic vol] 10.6 fL 6.2-12.0 [facility] Determination of erythrocyte mean corpuscular volume (MCV)Ordered By: Chris Winston on 01-10-2023 MCV (RBC) [Entitic vol] 99.0 fL 80-94 [facility] Hematocrit Auto (Bld) [Volum e fraction]Ordered By: Chris Winston on 01-10-2023 Hematocrit (Bld) [Volume fraction] 39.0 % 40-54 [facility] Laboratory - Chemistry and C hemistry - challengeOrdered By: Chris Winston on 01-10-2023 CO2 [Moles/Vol] 28.0 mmol/L 21.0-32.0 [facility] Urea nitrogen/Creatinine [Mass ratio] 12.3 mg/mg 10-20 [facility] Laboratory - Hematology and Cell countsOrdered By: Chris Winston on 01-10-2023 Erythrocyte distribution width (RBC) [Entitic vol] 44.7 fL 35.1-43.9 [facility] Erythrocyte distribution width (RBC) [Ratio] 12.2 % 11.6-14.6 [facility] Immature granulocytes/100 WBC (Bld) 0.000 % 0.0-0.9 [facility] Comment on above: IG% - Immature Granu locytes (promyelocytes, myelocytes and metamyelocytes) > 1% indicates that a LEFT SHIFT is Present. MCH (RBC) [Entitic mass] 33.8 pg 27.0-32.0 [facility] Nucleated RBC/100 WBC (Bld) [Ratio] 0 % 0-5 [facility] MCHC Auto (RBC) [Mass/Vol]Or dered By: Chris Winston on 01-10-2023 MCHC (RBC) [Mass/Vol] 34.1 g/dL 32-36 [facility] No Panel InformationOrdered By: Chris Winston on 01-10-2023 Estimated GFR (MDRD) Amer 136 mL/min >60 [facility] Comment on above: GFR Calc Estimated GFR (MDRD) Non-Af Amer 113 mL/min >60 [facility] Comment on above: Non- GFR Calc Miscellaneous Test See comment [facility] Comment on above: TEST RESULTS LIMITSG abapentin, Serum 5.0 ug/mL 4.0-16.0 Detection Limit = 1.0 TESTING PERFORMED AT [facility]. ORIGINAL REPORT ON FILE IN LAB CONTAINS ADDITIONAL TEST SITE INFORMATION. Platelets bldOrdered By: Michael Winston on 01-10-2023 Platelets (Bld) [#/Vol] 111 10*3/uL 150-450 [facility] Serum or plasma calcium rosalee urement (mass/volume)Ordered By: Chris Winston on 01-10-2023 Calcium [Mass/Vol] 8.2 mg/dL 8.5-10.1 [facility] Serum or plasma cholesterol in HDL measurement (mass/volume)Ordered By: Chris Winston on 01-10-2023 Cholesterol in HDL [Mass/Vol] 52 mg/dL >40 [facility] Comment on above: The drugs N-Acetylcy steine and Metamizole may falsely depress this assay. Reference Range HDL <40 mg/dL Low HDL Cholesterol HDL >or= 60 mg/dL High HDL Cholesterol Serum or plasma cholesterol in VLDL measurement (mass/volume)Ordered By: Chris Winston on 01-10-2023 Cholesterol in VLDL [Mass/Vol] 19 mg/dL 5-40 [facility] Serum or plasma creatinine m easurement (mass/volume)Ordered By: Chris Winston on 01-10-2023 Creatinine [Mass/Vol] 0.73 mg/dL 0.70-1.30 [facility] Comment on above: The validity of the calculated GFR & GFRAA in patients over 70 years has not been determined. Clinical correlation is essential. Serum or plasma low density lipoprotein (LDL) cholesterol measurement (mass/volume)Ordered By: Chris Winston on 01-10-2023 Cholesterol in LDL [Mass/Vol] 118 mg/dL 0-130 [facility] Serum or plasma oxcarbazepin e measurement (mass/volume)Ordered By: Chris Winston on 01-10-2023 OXcarbazepine [Mass/Vol] 27 ug/mL 10-35 [facility] Comment on above: This test was develo ped and its performance characteristicsdetermined by [employer]. It has not been cleared orapproved by the Food and Drug Administration. Detection Limit = 1Performed at: [facility] [address] [id number] Director: Mindy Parkinson MD, Phone: [phone] Serum or plasma urea nitroge n measurement (mass/volume)Ordered By: Chris Winston on 01-10-2023 Urea nitrogen [Mass/Vol] 9 mg/dL 7-18 [facility] Thin prep Papanicolaou smear with manual screeningOrdered By: Chris Winston on 01-10-2023 Thin prep Papanicolaou smear with manual screening 7 5-15 [facility] Absolute lymphocyte countOrd ered By: Chrsi Winston on 10-15-2022 Lymphocytes Auto (Unsp spec) [#/Vol] 1.06 10*3/uL 0.83-4.51 [facility] Basophil percentageOrdered B y: Chris Winston on 10-15-2022 Basophils/100 WBC (Bld) 0.9 % 0-1 [facility] Chloride [Moles/Vol] 103 mmol/L 98-107 [facility] Eosinophils/100 WBC (Bld) 7.2 % 0-5 [facility] Glucose [Mass/Vol] 97 mg/dL 74-106 [facility] Neutrophils (Bld) [#/Vol] 1.6 10*3/uL 2.0-7.7 [facility] Neutrophils/100 WBC (Bld) 46.6 % 47-70 [facility] Potassium [Moles/Vol] 3.3 mmol/L 3.5-5.1 [facility] Sodium [Moles/Vol] 135 mmol/L 136-145 [facility] WBC (Bld) [#/Vol] 3.3 10*3/uL 4.4-11.0 [facility] Blood erythrocytes count (nu mber/volume)Ordered By: Chris Winston on 10-15-2022 RBC (Bld) [#/Vol] 3.54 10*6/uL 4.6-6.2 [facility] Blood hemoglobin measurement (mass/volume)Ordered By: Chris Winston on 10-15-2022 Hemoglobin (Bld) [Mass/Vol] 12.1 g/dL 13.0-16.5 [facility] Blood lymphocytes/100 leukoc ytesOrdered By: Chris Winston on 10-15-2022 Lymphocytes/100 WBC (Bld) 31.8 % 19-41 [facility] Blood monocytes/100 leukocyt esOrdered By: Chris Winston on 10-15-2022 Monocytes/100 WBC (Bld) 13.2 % 0-10 [facility] Blood platelet mean volumeOr dered By: Chris Winston on 10-15-2022 Platelet mean volume (Bld) [Entitic vol] 10.0 fL 6.2-12.0 [facility] Determination of erythrocyte mean corpuscular volume (MCV)Ordered By: Chris Winston on 10-15-2022 MCV (RBC) [Entitic vol] 97.2 fL 80-94 [facility] Hematocrit Auto (Bld) [Volum e fraction]Ordered By: Chris Winston on 10-15-2022 Hematocrit (Bld) [Volume fraction] 34.4 % 40-54 [facility] Laboratory - Chemistry and C hemistry - challengeOrdered By: Chris Winston on 10-15-2022 CO2 [Moles/Vol] 28.0 mmol/L 21.0-32.0 [facility] Urea nitrogen/Creatinine [Mass ratio] 14.5 mg/mg 10-20 [facility] Laboratory - Hematology and Cell countsOrdered By: Chris Winston on 10-15-2022 Erythrocyte distribution width (RBC) [Entitic vol] 44.5 fL 35.1-43.9 [facility] Erythrocyte distribution width (RBC) [Ratio] 12.4 % 11.6-14.6 [facility] Immature granulocytes/100 WBC (Bld) 0.300 % 0.0-0.9 [facility] Comment on above: IG% - Immature Granu locytes (promyelocytes, myelocytes and metamyelocytes) > 1% indicates that a LEFT SHIFT is Present. MCH (RBC) [Entitic mass] 34.2 pg 27.0-32.0 [facility] Nucleated RBC/100 WBC (Bld) [Ratio] 0 % 0-5 [facility] MCHC Auto (RBC) [Mass/Vol]Or dered By: Chris Winston on 10-15-2022 MCHC (RBC) [Mass/Vol] 35.2 g/dL 32-36 [facility] No Panel InformationOrdered By: Chris Winston on 10-15-2022 Estimated GFR (MDRD) Amer 189 mL/min >60 [facility] Comment on above: GFR Calc Estimated GFR (MDRD) Non-Af Amer 156 mL/min >60 [facility] Comment on above: Non- GFR Calc Miscellaneous Test See comment [facility] Comment on above: TEST RESULT LIMITSLa cosamide, 12.6 High ug/mL 5.0-10.0 Limit of Detection 0.5 Mean plasma concentrations following maintenance dose 200 mg/day 4.99 +/- 2.51 ug/mL 400 mg/day 9.35 +/- 4.22 ug/mL 600 mg/day 12.46 +/- 5.60 ug/mL TESTING PERFORMED AT [facility]. ORIGINAL REPORT ON FILE IN LAB CONTAINS ADDITIONAL TEST SITE INFORMATION. Platelets bldOrdered By: Michael Winston on 10-15-2022 Platelets (Bld) [#/Vol] 100 10*3/uL 150-450 [facility] Serum or plasma calcium rosalee urement (mass/volume)Ordered By: Chris Winston on 10-15-2022 Calcium [Mass/Vol] 8.2 mg/dL 8.5-10.1 [facility] Serum or plasma creatinine m easurement (mass/volume)Ordered By: Chris Winston on 10-15-2022 Creatinine [Mass/Vol] 0.55 mg/dL 0.70-1.30 [facility] Comment on above: The validity of the calculated GFR & GFRAA in patients over 70 years has not been determined. Clinical correlation is essential. Serum or plasma oxcarbazepin e measurement (mass/volume)Ordered By: Chris Winston on 10-15-2022 OXcarbazepine [Mass/Vol] 26 ug/mL 10-35 [facility] Comment on above: This test was develo ped and its performance characteristicsdetermined by [employer]. It has not been cleared orapproved by the Food and Drug Administration. Detection Limit = 1Performed at: [facility] [id number] Director: Mindy Parkinson MD, Phone: [phone] Serum or plasma urea nitroge n measurement (mass/volume)Ordered By: Chris Winston on 10-15-2022 Urea nitrogen [Mass/Vol] 8 mg/dL 7-18 [facility] Thin prep Papanicolaou smear with manual screeningOrdered By: Chris Winston on 10-15-2022 Thin prep Papanicolaou smear with manual screening 4 5-15 [facility] Basophil percentageOrdered B y: Chris Winston on 09-07-2022 Bilirubin [Mass/Vol] 0.40 mg/dL 0.20-1.00 [facility] Comment on above: For patients on eltr ombopag therapy, use of Dimension [place] TBIL is not recommended. Protein [Mass/Vol] 6.2 g/dL 6.4-8.2 [facility] Direct bilirubinOrdered By: Chris Winston on 09-07-2022 Bilirubin.direct [Mass/Vol] 0.14 mg/dL 0.00-0.30 [facility] Laboratory - Chemistry and C hemistry - challengeOrdered By: Chris Winston on 09-07-2022 ALP [Catalytic activity/Vol] 74 U/L 45-117 [facility] ALT [Catalytic activity/Vol] 19 U/L 16-61 [facility] Globulin (S) [Mass/Vol] 3.6 g/dL 2.2-4.2 [facility] No Panel InformationOrdered By: Chris Winston on 09-07-2022 Prostate Specific Antigen Screen 0.33 ng/mL 0.00-4.00 [facility] Comment on above: This test was perfor med using the TPSA assay method for the[employer] chemistry system. Values obtained with differentassay methods cannot be used interchangably.When changing PSA assays in the course of monitoring apatient, additional sequential testing should be carriedout to confirm baseline values. Serum or plasma albumin rosalee urement (mass/volume)Ordered By: Chris Winston on 09-07-2022 Albumin [Mass/Vol] 2.6 g/dL 3.2-5.0 [facility] Thin prep Papanicolaou smear with manual screeningOrdered By: Chris Winston on 09-07-2022 Thin prep Papanicolaou smear with manual screening 23 U/L 15-37 [facility] Basophil percentageOrdered B y: Chris Winston on 07-06-2022 Chloride [Moles/Vol] 105 mmol/L 98-107 [facility] Glucose [Mass/Vol] 110 mg/dL 74-106 [facility] Comment on above: Fasting Glucose resu lt from 100 to 125 mg/dL suggests IMPAIRED HOMEOSTASIS per A.D.A. criteria. Potassium [Moles/Vol] 3.7 mmol/L 3.5-5.1 [facility] Sodium [Moles/Vol] 138 mmol/L 136-145 [facility] WBC (Bld) [#/Vol] 2.9 10*3/uL 4.4-11.0 [facility] Blood erythrocytes count (nu mber/volume)Ordered By: Chris Winston on 07-06-2022 RBC (Bld) [#/Vol] 3.82 10*6/uL 4.6-6.2 [facility] Blood hemoglobin measurement (mass/volume)Ordered By: Chris Winston on 07-06-2022 Hemoglobin (Bld) [Mass/Vol] 12.9 g/dL 13.0-16.5 [facility] Blood platelet mean volumeOr dered By: Chris Winston on 07-06-2022 Platelet mean volume (Bld) [Entitic vol] 10.1 fL 6.2-12.0 [facility] Determination of erythrocyte mean corpuscular volume (MCV)Ordered By: Chris Winston on 07-06-2022 MCV (RBC) [Entitic vol] 99.2 fL 80-94 [facility] Hematocrit Auto (Bld) [Volum e fraction]Ordered By: Chris Winston on 07-06-2022 Hematocrit (Bld) [Volume fraction] 37.9 % 40-54 [facility] Laboratory - Chemistry and C hemistry - challengeOrdered By: Chris Winston on 07-06-2022 CO2 [Moles/Vol] 29.0 mmol/L 21.0-32.0 [facility] Urea nitrogen/Creatinine [Mass ratio] 15.2 mg/mg 10-20 [facility] Laboratory - Hematology and Cell countsOrdered By: Chris Winston on 07-06-2022 Erythrocyte distribution width (RBC) [Entitic vol] 45.8 fL 35.1-43.9 [facility] Erythrocyte distribution width (RBC) [Ratio] 12.7 % 11.6-14.6 [facility] MCH (RBC) [Entitic mass] 33.8 pg 27.0-32.0 [facility] MCHC Auto (RBC) [Mass/Vol]Or dered By: Chris Winston on 07-06-2022 MCHC (RBC) [Mass/Vol] 34.0 g/dL 32-36 [facility] No Panel InformationOrdered By: Chris Winston on 07-06-2022 Estimated GFR (MDRD) Amer 154 mL/min >60 [facility] Comment on above: GFR Calc Estimated GFR (MDRD) Non-Af Amer 127 mL/min >60 [facility] Comment on above: Non- GFR Calc Miscellaneous Test See comment [facility] Comment on above: TEST RESULTS LIMITSG abapentin (Neurontin), SerumGabapentin, Serum 8.0 ug/mL 4.0-16.0 Detection Limit = 1.0 TESTING PERFORMED AT [facility]. ORIGINAL REPORT ON FILE IN LAB CONTAINS ADDITIONAL TEST SITE INFORMATION. Platelets bldOrdered By: Michael Winston on 07-06-2022 Platelets (Bld) [#/Vol] 99 10*3/uL 150-450 [facility] Serum or plasma calcium rosalee urement (mass/volume)Ordered By: Chris Winston on 07-06-2022 Calcium [Mass/Vol] 8.7 mg/dL 8.5-10.1 [facility] Serum or plasma creatinine m easurement (mass/volume)Ordered By: Chris Winston on 07-06-2022 Creatinine [Mass/Vol] 0.66 mg/dL 0.70-1.30 [facility] Comment on above: The validity of the calculated GFR & GFRAA in patients over 70 years has not been determined. Clinical correlation is essential. Serum or plasma oxcarbazepin e measurement (mass/volume)Ordered By: Chris Winston on 07-06-2022 OXcarbazepine [Mass/Vol] 29 ug/mL 10-35 [facility] Comment on above: This test was develo ped and its performance characteristicsdetermined by [employer]. It has not been cleared orapproved by the Food and Drug Administration. Detection Limit = 1Performed at: [facility] [id number] Director: Mindy Parkinson MD, Phone: [phone] Serum or plasma urea nitroge n measurement (mass/volume)Ordered By: Chris Winston on 07-06-2022 Urea nitrogen [Mass/Vol] 10 mg/dL 7-18 [facility] Thin prep Papanicolaou smear with manual screeningOrdered By: Chris Winston on 07-06-2022 Thin prep Papanicolaou smear with manual screening 4 5-15 [facility] Basophil percentageOrdered B y: Chris Winston on 04-12-2022 Chloride [Moles/Vol] 106 mmol/L 98-107 [facility] Glucose [Mass/Vol] 108 mg/dL 74-106 [facility] Comment on above: Fasting Glucose resu lt from 100 to 125 mg/dL suggests IMPAIRED HOMEOSTASIS per A.D.A. criteria. Potassium [Moles/Vol] 3.4 mmol/L 3.5-5.1 [facility] Sodium [Moles/Vol] 142 mmol/L 136-145 [facility] Laboratory - Chemistry and C hemistry - challengeOrdered By: Chris Winston on 04-12-2022 CO2 [Moles/Vol] 29.0 mmol/L 21.0-32.0 [facility] Urea nitrogen/Creatinine [Mass ratio] 19.2 mg/mg 10-20 [facility] No Panel InformationOrdered By: Chris Winston on 04-12-2022 Estimated GFR (MDRD) Amer 148 mL/min >60 [facility] Comment on above: GFR Calc Estimated GFR (MDRD) Non-Af Amer 123 mL/min >60 [facility] Comment on above: Non- GFR Calc Miscellaneous Test See comment [facility] Comment on above: TEST RESULT LIMITSLa cosamide, 10.4 High ug/mL 5.0-10.0 Limit of Detection 0.5 Mean plasma concentrations following maintenance dose 200 mg/day 4.99 +/- 2.51 ug/mL 400 mg/day 9.35 +/- 4.22 ug/mL 600 mg/day 12.46 +/- 5.60 ug/mL TESTING PERFORMED AT [facility]. ORIGINAL REPORT ON FILE IN LAB CONTAINS ADDITIONAL TEST SITE INFORMATION. Serum or plasma calcium rosalee urement (mass/volume)Ordered By: Chris Winston on 04-12-2022 Calcium [Mass/Vol] 8.4 mg/dL 8.5-10.1 [facility] Serum or plasma creatinine m easurement (mass/volume)Ordered By: Chris Winston on 04-12-2022 Creatinine [Mass/Vol] 0.68 mg/dL 0.70-1.30 [facility] Comment on above: The validity of the calculated GFR & GFRAA in patients over 70 years has not been determined. Clinical correlation is essential. Serum or plasma oxcarbazepin e measurement (mass/volume)Ordered By: Chris Winston on 04-12-2022 OXcarbazepine [Mass/Vol] 23 ug/mL 10- [facility] Comment on above: This test was develo ped and its performance characteristicsdetermined by [employer]. It has not been cleared orapproved by the Food and Drug Administration. Detection Limit = 1Performed at: [address] [id number] Director: Mindy Parkinson MD, Phone: [phone] Serum or plasma urea nitroge n measurement (mass/volume)Ordered By: Chris Winston on 04-12-2022 Urea nitrogen [Mass/Vol] 13 mg/dL 7-18 [facility] Thin prep Papanicolaou smear with manual screeningOrdered By: Chris Winston on 04-12-2022 Thin prep Papanicolaou smear with manual screening 7 5-15 [facility] Basophil percentageon 2021 Bilirubin [Mass/Vol] 0.40 mg/dL 0.20-1.00 [facility] Work Phone: Comment on above: For patients on eltr ombopag therapy, use of Dimension [place] TBIL is not recommended. Protein [Mass/Vol] 6.0 g/dL 6.4-8.2 [facility] Work Phone: Direct bilirubinon Bilirubin.direct [Mass/Vol] 0.09 mg/dL 0.00-0.30 [facility] Work Phone: Laboratory - Chemistry and C hemistry - challengeon 03-09-2022 ALP [Catalytic activity/Vol] 65 U/L 45-117 [facility] Work Phone: ALT [Catalytic activity/Vol] 16 U/L 16-61 [facility] Work Phone: Globulin (S) [Mass/Vol] 3.5 g/dL 2.2-4.2 [facility] Work Phone: Serum or plasma albumin rosalee urement (mass/volume)on 03-09-2022 Albumin [Mass/Vol] 2.5 g/dL 3.2-5.0 [facility] Work Phone: Thin prep Papanicolaou smear with manual screeningon 03-09-2022 Thin prep Papanicolaou smear with manual screening 18 U/L 15-37 [facility] Work Phone: Basophil percentageon 2021 Chloride [Moles/Vol] 104 mmol/L 98-107 [facility] Work Phone: Cholesterol [Mass/Vol] 176 mg/dL <200 [facility] Work Phone: Comment on above: <200 mg/dL Desirable 200-240 mg/dL Borderline >240 mg/dL High Risk Glucose [Mass/Vol] 103 mg/dL 74-106 [facility] Work Phone: Comment on above: Fasting Glucose resu lt from 100 to 125 mg/dL suggests IMPAIRED HOMEOSTASIS per A.D.A. criteria. Potassium [Moles/Vol] 3.3 mmol/L 3.5-5.1 [facility] Work Phone: Sodium [Moles/Vol] 140 mmol/L 136-145 [facility] Work Phone: Triglyceride [Mass/Vol] 76 mg/dL <199 [facility] Work Phone: Comment on above: The drugs N-Acetylcy steine and Metamizole may falsely depress this assay.Serum Triglycerides Reference Interval Normal <150 mg/dL Borderline high 150 - 199 mg/dL High 200 - 499 mg/dL Very High > or = 500 mg/dL WBC (Bld) [#/Vol] 2.9 10*3/uL 4.4-11.0 [facility] Work Phone: Blood erythrocytes count (nu mber/volume)on 01-07-2022 RBC (Bld) [#/Vol] 3.71 10*6/uL 4.6-6.2 [facility] Work Phone: Blood hemoglobin measurement (mass/volume)on 01-07-2022 Hemoglobin (Bld) [Mass/Vol] 12.6 g/dL 13.0-16.5 [facility] Work Phone: Blood platelet mean volumeon 01-07-2022 Platelet mean volume (Bld) [Entitic vol] 10.4 fL 6.2-12.0 [facility] Work Phone: Determination of erythrocyte mean corpuscular volume (MCV)on 01-07-2022 MCV (RBC) [Entitic vol] 97.3 fL 80-94 [facility] Work Phone: Hematocrit Auto (Bld) [Volum e fraction]on 01-07-2022 Hematocrit (Bld) [Volume fraction] 36.1 % 40-54 [facility] Work Phone: Laboratory - Chemistry and C hemistry - challengeon 01-07-2022 CO2 [Moles/Vol] 30.0 mmol/L 21.0-32.0 [facility] Work Phone: Urea nitrogen/Creatinine [Mass ratio] 17.4 mg/mg 10-20 [facility] Work Phone: Laboratory - Hematology and Cell countson 01-07-2022 Erythrocyte distribution width (RBC) [Entitic vol] 45.3 fL 35.1-43.9 [facility] Work Phone: Erythrocyte distribution width (RBC) [Ratio] 12.7 % 11.6-14.6 [facility] Work Phone: MCH (RBC) [Entitic mass] 34.0 pg 27.0-32.0 [facility] Work Phone: MCHC Auto (RBC) [Mass/Vol]on 01-07-2022 MCHC (RBC) [Mass/Vol] 34.9 g/dL 32-36 [facility] Work Phone: No Panel Informationon 01-07 Estimated GFR (MDRD) Amer 180 mL/min >60 [facility] Work Phone: Comment on above: GFR Calc Estimated GFR (MDRD) Non-Af Amer 148 mL/min >60 [facility] Work Phone: Comment on above: Non- GFR Calc Miscellaneous Test See comment [facility] Work Phone: Comment on above: TEST RESULT LIMITSGa bapentin, Serum 8.1 ug/mL 4.0-16.0 Detection Limit = 1.0 [facility] ORIGINAL REPORT ON FILE IN LAB CONTAINS ADDITIONAL TEST SITE INFORMATION. Platelets bldon 01-07-2022 Platelets (Bld) [#/Vol] 95 10*3/uL 150-450 [facility] Work Phone: Serum or plasma calcium rosalee urement (mass/volume)on 01-07-2022 Calcium [Mass/Vol] 8.7 mg/dL 8.5-10.1 [facility] Work Phone: Serum or plasma cholesterol in HDL measurement (mass/volume)on 01-07-2022 Cholesterol in HDL [Mass/Vol] 48 mg/dL >40 [facility] Work Phone: Comment on above: The drugs N-Acetylcy steine and Metamizole may falsely depress this assay. Reference Range HDL <40 mg/dL Low HDL Cholesterol HDL >or= 60 mg/dL High HDL Cholesterol Serum or plasma cholesterol in VLDL measurement (mass/volume)on 01-07-2022 Cholesterol in VLDL [Mass/Vol] 15 mg/dL 5-40 [facility] Work Phone: Serum or plasma creatinine m easurement (mass/volume)on 01-07-2022 Creatinine [Mass/Vol] 0.58 mg/dL 0.70-1.30 [facility] Work Phone: Comment on above: The validity of the calculated GFR & GFRAA in patients over 70 years has not been determined. Clinical correlation is essential. Serum or plasma low density lipoprotein (LDL) cholesterol measurement (mass/volume)on 01-07-2022 Cholesterol in LDL [Mass/Vol] 113 mg/dL 0-130 [facility] Work Phone: Serum or plasma oxcarbazepin e measurement (mass/volume)on 01-07-2022 OXcarbazepine [Mass/Vol] 25 ug/mL 10-35 [facility] Work Phone: Comment on above: This test was develo ped and its performance characteristicsdetermined by [employer]. It has not been cleared orapproved by the Food and Drug Administration. Detection Limit = 1Performed at: [facility] [id number] [place], [place] [id number] Director: Mindy Parkinson MD, Phone: [phone] Serum or plasma urea nitroge n measurement (mass/volume)on 01-07-2022 Urea nitrogen [Mass/Vol] 10 mg/dL 7-18 [facility] Work Phone: Thin prep Papanicolaou smear with manual screeningon 01-07-2022 Thin prep Papanicolaou smear with manual screening 6 5-15 [facility] Work Phone: Basophil percentageon 2021 Chloride [Moles/Vol] 104 mmol/L 98-107 [facility] Work Phone: Glucose [Mass/Vol] 95 mg/dL 74-106 [facility] Work Phone: Potassium [Moles/Vol] 3.6 mmol/L 3.5-5.1 [facility] Work Phone: Sodium [Moles/Vol] 137 mmol/L 136-145 [facility] Work Phone: Laboratory - Chemistry and C hemistry - challengeon 10-07-2021 CO2 [Moles/Vol] 29.0 mmol/L 21.0-32.0 [facility] Work Phone: Urea nitrogen/Creatinine [Mass ratio] 13.3 mg/mg 10-20 [facility] Work Phone: No Panel Informationon 10-07 Estimated GFR (MDRD) Amer 170 mL/min >60 [facility] Work Phone: Comment on above: GFR Calc Estimated GFR (MDRD) Non-Af Amer 141 mL/min >60 [facility] Work Phone: Comment on above: Non- GFR Calc Serum or plasma calcium rosalee urement (mass/volume)on 10-07-2021 Calcium [Mass/Vol] 8.4 mg/dL 8.5-10.1 [facility] Work Phone: Serum or plasma creatinine m easurement (mass/volume)on 10-07-2021 Creatinine [Mass/Vol] 0.60 mg/dL 0.70-1.30 [facility] Work Phone: Comment on above: The validity of the calculated GFR & GFRAA in patients over 70 years has not been determined. Clinical correlation is essential. Serum or plasma oxcarbazepin e measurement (mass/volume)on 10-07-2021 OXcarbazepine [Mass/Vol] 24 ug/mL 10-35 [facility] Work Phone: Comment on above: This test was develo ped and its performance characteristicsdetermined by [employer]. It has not been cleared orapproved by the Food and Drug Administration. Detection Limit = 1Performed at: [id number] [place], [place] [id number] Director: Mindy Parkinson MD, Phone: [phone] Serum or plasma urea nitroge n measurement (mass/volume)on 10-07-2021 Urea nitrogen [Mass/Vol] 8 mg/dL 7-18 [facility] Work Phone: Thin prep Papanicolaou smear with manual screeningon 10-07-2021 Thin prep Papanicolaou smear with manual screening 4 5-15 [facility] Work Phone: Basophil percentageon 2021 Bilirubin [Mass/Vol] 0.50 mg/dL 0.20-1.00 [facility] Work Phone: Comment on above: For patients on eltr ombopag therapy, use of Dimension [place] TBIL is not recommended. Protein [Mass/Vol] 6.4 g/dL 6.4-8.2 [facility] Work Phone: Direct bilirubinon 2 Bilirubin.direct [Mass/Vol] 0.12 mg/dL 0.00-0.30 [facility] Work Phone: Laboratory - Chemistry and C hemistry - challengeon 09-07-2021 ALP [Catalytic activity/Vol] 66 U/L 45-117 [facility] Work Phone: ALT [Catalytic activity/Vol] 19 U/L 16-61 [facility] Work Phone: Globulin (S) [Mass/Vol] 3.7 g/dL 2.2-4.2 [facility] Work Phone: No Panel Informationon 09-07 Prostate Specific Antigen Total 0.32 ng/mL 0.0-4.0 [facility] Work Phone: Comment on above: This test was perfor med using the TPSA assay method for the[employer] [place] [employer] system. Values obtained with differentassay methods cannot be used interchangably.When changing PSA assays in the course of monitoring apatient, additional sequential testing should be carriedout to confirm baseline values. Serum or plasma albumin rosalee urement (mass/volume)on 09-07-2021 Albumin [Mass/Vol] 2.7 g/dL 3.2-5.0 [facility] Work Phone: Thin prep Papanicolaou smear with manual screeningon 09-07-2021 Thin prep Papanicolaou smear with manual screening 19 U/L 15-37 [facility] Work Phone: Basophil percentageon 2021 Chloride [Moles/Vol] 102 mmol/L 98-107 [facility] Work Phone: Glucose [Mass/Vol] 104 mg/dL 74-106 [facility] Work Phone: Comment on above: Fasting Glucose resu lt from 100 to 125 mg/dL suggests IMPAIRED HOMEOSTASIS per A.D.A. criteria. Potassium [Moles/Vol] 3.5 mmol/L 3.5-5.1 [facility] Work Phone: Sodium [Moles/Vol] 137 mmol/L 136-145 [facility] Work Phone: WBC (Bld) [#/Vol] 2.5 10*3/uL 4.4-11.0 [facility] Work Phone: Blood erythrocytes count (nu mber/volume)on 08-07-2021 RBC (Bld) [#/Vol] 3.82 10*6/uL 4.6-6.2 [facility] Work Phone: Blood hemoglobin measurement (mass/volume)on 08-07-2021 Hemoglobin (Bld) [Mass/Vol] 13.0 g/dL 13.0-16.5 [facility] Work Phone: Blood platelet mean volumeon 08-07-2021 Platelet mean volume (Bld) [Entitic vol] 9.8 fL 6.2-12.0 [facility] Work Phone: Determination of erythrocyte mean corpuscular volume (MCV)on 08-07-2021 MCV (RBC) [Entitic vol] 98.2 fL 80-94 [facility] Work Phone: Hematocrit Auto (Bld) [Volum e fraction]on 08-07-2021 Hematocrit (Bld) [Volume fraction] 37.5 % 40-54 [facility] Work Phone: Laboratory - Chemistry and C hemistry - challengeon 08-07-2021 CO2 [Moles/Vol] 30.0 mmol/L 21.0-32.0 [facility] Work Phone: Urea nitrogen/Creatinine [Mass ratio] 15.1 mg/mg 10-20 [facility] Work Phone: Laboratory - Hematology and Cell countson 08-07-2021 Erythrocyte distribution width (RBC) [Entitic vol] 44.3 fL 35.1-43.9 [facility] Work Phone: Erythrocyte distribution width (RBC) [Ratio] 12.2 % 11.6-14.6 [facility] Work Phone: MCH (RBC) [Entitic mass] 34.0 pg 27.0-32.0 [facility] Work Phone: MCHC Auto (RBC) [Mass/Vol]on 08-07-2021 MCHC (RBC) [Mass/Vol] 34.7 g/dL 32-36 [facility] Work Phone: No Panel Informationon 08-07 Estimated GFR (MDRD) Amer 152 mL/min >60 [facility] Work Phone: Comment on above: GFR Calc Estimated GFR (MDRD) Non-Af Amer 126 mL/min >60 [facility] Work Phone: Comment on above: Non- GFR Calc Miscellaneous Test See [facility]: Comment on above: TEST RESULT LIMITSGa bapentin(Neurontin), Serum 4.6 ug/mL 4.0-16.0 Detection Limit = 1.0 TESTING PERFORMED AT [facility]. ORIGINAL REPORT ON FILE IN LAB CONTAINS ADDITIONAL TEST SITE INFORMATION. Platelets bldon 08-07-2021 Platelets (Bld) [#/Vol] 94 10*3/uL 150-450 [facility] Work Phone: Serum or plasma calcium rosalee urement (mass/volume)on 08-07-2021 Calcium [Mass/Vol] 8.2 mg/dL 8.5-10.1 [facility] Work Phone: Serum or plasma creatinine m easurement (mass/volume)on 08-07-2021 Creatinine [Mass/Vol] 0.66 mg/dL 0.70-1.30 [facility] Work Phone: Comment on above: The validity of the calculated GFR & GFRAA in patients over 70 years has not been determined. Clinical correlation is essential. Serum or plasma oxcarbazepin e measurement (mass/volume)on 08-07-2021 OXcarbazepine [Mass/Vol] 22 ug/mL 10-35 [facility] Work Phone: Comment on above: This test was develo ped and its performance characteristicsdetermined by [employer]. It has not been cleared orapproved by the Food and Drug Administration. Detection Limit = 1Performed at: [address] [id number] Director: Mindy Parkinson MD, Phone: [phone] Serum or plasma urea nitroge n measurement (mass/volume)on 08-07-2021 Urea nitrogen [Mass/Vol] 10 mg/dL 7-18 [facility] Work Phone: [phone] Thin prep Papanicolaou smear with manual screeningon 08-07-2021 Thin prep Papanicolaou smear with manual screening 5 5-15 [facility] Work Phone: [phone] Basophil percentageon 2021 Chloride [Moles/Vol] 105 mmol/L 98-107 [facility] Work Phone: [phone] Glucose [Mass/Vol] 92 mg/dL 74-106 [facility] Work Phone: [phone] Potassium [Moles/Vol] 3.7 mmol/L 3.5-5.1 [facility] Work Phone: [phone] Sodium [Moles/Vol] 138 mmol/L 136-145 [facility] Work Phone: [phone] WBC (Bld) [#/Vol] 3.0 10*3/uL 4.4-11.0 [facility] Work Phone: Blood erythrocytes count (nu mber/volume)on 07-08-2021 RBC (Bld) [#/Vol] 3.92 10*6/uL 4.6-6.2 [facility] Work Phone: Blood hemoglobin measurement (mass/volume)on 07-08-2021 Hemoglobin (Bld) [Mass/Vol] 13.4 g/dL 13.0-16.5 [facility] Work Phone: [phone] Blood platelet mean volumeon 07-08-2021 Platelet mean volume (Bld) [Entitic vol] 10.9 fL 6.2-12.0 [facility] Work Phone: Determination of erythrocyte mean corpuscular volume (MCV)on 07-08-2021 MCV (RBC) [Entitic vol] 98.2 fL 80-94 [facility] Work Phone: Hematocrit Auto (Bld) [Volum e fraction]on 07-08-2021 Hematocrit (Bld) [Volume fraction] 38.5 % 40-54 [facility] Work Phone: Laboratory - Chemistry and C hemistry - challengeon 07-08-2021 CO2 [Moles/Vol] 32.0 mmol/L 21.0-32.0 [facility] Work Phone: Urea nitrogen/Creatinine [Mass ratio] 16.5 mg/mg 10-20 [facility] Work Phone: Laboratory - Hematology and Cell countson 07-08-2021 Erythrocyte distribution width (RBC) [Entitic vol] 44.7 fL 35.1-43.9 [facility] Work Phone: Erythrocyte distribution width (RBC) [Ratio] 12.4 % 11.6-14.6 [facility] Work Phone: MCH (RBC) [Entitic mass] 34.2 pg 27.0-32.0 [facility] Work Phone: MCHC Auto (RBC) [Mass/Vol]on 07-08-2021 MCHC (RBC) [Mass/Vol] 34.8 g/dL 32-36 [facility] Work Phone: No Panel Informationon 07-08 Estimated GFR (MDRD) Amer 191 mL/min >60 [facility] Work Phone: Comment on above: GFR Calc Estimated GFR (MDRD) Non-Af Amer 158 mL/min >60 [facility] Work Phone: Comment on above: Non- GFR Calc Miscellaneous Test See comment [facility] Work Phone: Comment on above: TEST RESULT LIMITSGa bapentin (Neurontin), Serum Gabapentin, Serum 5.6 ug/mL 4.0-16.0 Detection Limit = 1.0 TESTING PERFORMED AT [facility]. ORIGINAL REPORT ON FILE IN LAB CONTAINS ADDITIONAL TEST SITE INFORMATION. Platelets bldon 07-08-2021 Platelets (Bld) [#/Vol] 81 10*3/uL 150-450 [facility] Work Phone: Serum or plasma calcium rosalee urement (mass/volume)on 07-08-2021 Calcium [Mass/Vol] 8.5 mg/dL 8.5-10.1 [facility] Work Phone: Serum or plasma creatinine m easurement (mass/volume)on 07-08-2021 Creatinine [Mass/Vol] 0.54 mg/dL 0.70-1.30 [facility] Work Phone: Comment on above: The validity of the calculated GFR & GFRAA in patients over 70 years has not been determined. Clinical correlation is essential. Serum or plasma oxcarbazepin e measurement (mass/volume)on 07-08-2021 OXcarbazepine [Mass/Vol] 25 ug/mL 10-35 [facility] Work Phone: Comment on above: This test was develo ped and its performance characteristicsdetermined by [employer]. It has not been cleared orapproved by the Food and Drug Administration. Detection Limit = 1Performed at: [facility] [place] [id number] [place], [place] [id number] Director: Mindy Parkinson MD, Phone: [phone] Serum or plasma urea nitroge n measurement (mass/volume)on 07-08-2021 Urea nitrogen [Mass/Vol] 9 mg/dL 7-18 [facility] Work Phone: Thin prep Papanicolaou smear with manual screeningon 07-08-2021 Thin prep Papanicolaou smear with manual screening 1 5-15 [facility] Work Phone: Laboratory - Microbiology an d Antimicrobial susceptibilityon 04-27-2021 SARS-CoV-2 (COVID-19) RNA CHUCKIE+probe Ql (Unsp spec) Not detected Not Detect [facility] Work Phone: Comment on above: Normal Reference Ran ge: Not DetectedMethod:(RT-PCR) real-time reverse transcriptase PCRLuminex ASAD Instrument*The Food and Drug Administration (FDA) has issued an Emergency Use Authorization (EAU) for the Ameriprime SARS-CoV-2 Assay for the rapid detection of [...] percentageon 2021 Chloride [Moles/Vol] 109 mmol/L 98-107 [facility] Work Phone: Glucose [Mass/Vol] 109 mg/dL 74-106 [facility] Work Phone: Comment on above: Fasting Glucose resu lt from 100 to 125 mg/dL suggests IMPAIRED HOMEOSTASIS per A.D.A. criteria.Please note revised GLUCOSE reference range effective 2017. Potassium [Moles/Vol] 4.2 mmol/L 3.5-5.1 [facility] Work Phone: Sodium [Moles/Vol] 141 mmol/L 136-145 [facility] Work Phone: Laboratory - Chemistry and C hemistry - challengeon 04-10-2021 CO2 [Moles/Vol] 28.0 mmol/L 21.0-32.0 [facility] Work Phone: Urea nitrogen/Creatinine [Mass ratio] 24.4 mg/mg 10-20 [facility] Work Phone: No Panel Informationon 04-10 Estimated GFR (MDRD) Amer 180 mL/min >60 [facility] Work Phone: Comment on above: GFR Calc Estimated GFR (MDRD) Non-Af Amer 149 mL/min >60 [facility] Work Phone: Comment on above: Non- GFR Calc Miscellaneous Test See [facility]: Comment on above: TEST RESULT LIMITSLa cosamide, 12.8 High ug/mL 5.0-10.0 Limit of Detection 0.5 Mean plasma concentrations following maintenance dose 200 mg/day 4.99 +/- 2.51 ug/mL 400 mg/day 9.35 +/- 4.22 ug/mL 600 mg/day 12.46 +/- 5.60 ug/mL TESTING PERFORMED AT [facility]. ORIGINAL REPORT ON FILE IN LAB CONTAINS ADDITIONAL TEST SITE INFORMATION. Serum or plasma calcium rosalee urement (mass/volume)on 04-10-2021 Calcium [Mass/Vol] 8.9 mg/dL 8.5-10.1 [facility] Work Phone: Serum or plasma creatinine m easurement (mass/volume)on 04-10-2021 Creatinine [Mass/Vol] 0.57 mg/dL 0.70-1.30 [facility] Work Phone: Comment on above: The validity of the calculated GFR & GFRAA in patients over 70 years has not been determined. Clinical correlation is essential. Serum or plasma oxcarbazepin e measurement (mass/volume)on 04-10-2021 OXcarbazepine [Mass/Vol] 27 ug/mL [facility] Work Phone: Comment on above: This test was develo ped and its performance characteristicsdetermined by [employer]. It has not been cleared orapproved by the Food and Drug Administration. Detection Limit = 1Performed at: [id number] [place], [place] [id number] Director: Mindy Parkinson MD, Phone: [phone] Serum or plasma urea nitroge n measurement (mass/volume)on 04-10-2021 Urea nitrogen [Mass/Vol] 14 mg/dL 7-18 [facility] Work Phone: Thin prep Papanicolaou smear with manual screeningon 04-10-2021 Thin prep Papanicolaou smear with manual screening 4 5-15 [facility] Work Phone: Basophil percentageon 2020 Bilirubin [Mass/Vol] 0.40 mg/dL 0.20-1.00 [facility] Work Phone: Comment on above: For patients on eltr ombopag therapy, use of Dimension [place] TBIL is not recommended. Protein [Mass/Vol] 6.5 g/dL 6.4-8.2 [facility] Work Phone: Direct bilirubinon Bilirubin.direct [Mass/Vol] 0.13 mg/dL 0.00-0.30 [facility] Work Phone: Laboratory - Chemistry and C hemistry - challengeon 03-10-2021 ALP [Catalytic activity/Vol] 68 U/L 45-117 [facility] Work Phone: ALT [Catalytic activity/Vol] 19 U/L 16-61 [facility] Work Phone: Globulin (S) [Mass/Vol] 3.9 g/dL 2.2-4.2 [facility] Work Phone: Serum or plasma albumin rosalee urement (mass/volume)on 03-10-2021 Albumin [Mass/Vol] 2.6 g/dL 3.2-5.0 [facility] Work Phone: Thin prep Papanicolaou smear with manual screeningon 03-10-2021 Thin prep Papanicolaou smear with manual screening 21 U/L 15-37 [facility] Work Phone: Encounters Encounter Date Encounter Type Care Provider Facility Start: 01-08-2025 End: 01-08-2025 ambulatory Chris BRANNON Facility:[facility] Start: 10-08-2024 End: 10-08-2024 ambulatory Chris BRANNON Facility:[facility] Start: 09-10-2024 ambulatory Chris BRANNON Facil ity:[facility] Start: 07-09-2024 End: 07-09-2024 ambulatory Chris Winston MD [facility] Work Phone: Start: 07-09-2024 End: 07-09-2024 Departed Referred Chris Winston MD [facility] Start: 07-09-2024 End: 07-09-2024 ambulatory Chris BRANNON Facility:[facility] Start: 05-14-2024 ambulatory Chris BRANNON Facil ity:[facility] Start: 05-14-2024 Registered Referred Chris Winston MD [facility] Start: 04-10-2024 ambulatory Chris BRANNON Facil ity:[facility] Start: 04-10-2024 Registered Referred Chris Winston MD [facility] Start: 03-13-2024 End: 03-13-2024 Departed Referred Chris Winston MD [facility] Start: 03-13-2024 End: 03-13-2024 ambulatory Chris BRANNON Facility:[facility] Start: 07-11-2023 End: 07-11-2023 ambulatory [facility] Work Phone: Start: 07-11-2023 End: 07-11-2023 Departed Referred [facility] Start: 04-11-2023 End: 04-11-2023 ambulatory [facility] Work Phone: Start: 04-11-2023 End: 04-11-2023 Departed Referred [facility] Start: 03-08-2023 End: 03-08-2023 ambulatory [facility] Work Phone: Start: 03-08-2023 End: 03-08-2023 Departed Referred [facility] Start: 02-16-2023 End: 02-16-2023 ambulatory [facility] Work Phone: Start: 02-16-2023 End: 02-16-2023 Departed Referred [facility] Start: 01-10-2023 End: 01-10-2023 ambulatory [facility] Work Phone: Start: 01-10-2023 End: 01-10-2023 Departed Referred [facility] Start: 10-15-2022 End: 10-15-2022 ambulatory [facility] Work Phone: Start: 10-15-2022 End: 10-15-2022 Departed Referred [facility] Start: 10-15-2022 Registered Referred [facility] Start: 09-07-2022 End: 09-07-2022 ambulatory [facility] Work Phone: Start: 09-07-2022 End: 09-07-2022 Departed Referred [facility] Start: 07-06-2022 End: 07-06-[address] [facility] Work Phone: Start: 07-06-2022 End: 07-06-2022 Departed Referred [facility] Start: 04-12-2022 End: 04-12-2022 ambulatory [facility] Work Phone: Start: 04-12-2022 End: 04-12-2022 Departed Referred [facility] Start: 03-09-2022 End: 03-09-2022 ambulatory [facility] Work Phone: Start: 03-09-2022 End: 03-09-2022 Departed Referred [facility] Start: 01-07-2022 End: 01-07-2022 ambulatory [facility] Work Phone: Start: 01-07-2022 End: 01-07-2022 Departed Referred [facility] Start: 10-07-2021 Registered Referred [facility] Start: 09-07-2021 End: 09-07-2021 Departed Referred [facility] Start: 08-07-2021 End: 08-07-2021 Departed Referred [facility] Start: 07-08-2021 End: 07-08-2021 Departed Referred [facility] Start: 07-08-2021 Registered Referred [facility] Start: 04-27-2021 End: 04-27-2021 Departed Referred [facility] Start: 04-27-2021 Registered Referred [facility] Start: 04-10-2021 End: 04-10-2021 Departed Referred [facility] Start: 03-10-2021 Registered Referred [facility] Plan of Treatment Date Care Activity Detail Author Start: 07-09-2024 Measurement of substance [facility] Start: 04-11-2023 Measurement of substance [facility] Start: 04-11-2023 Procedure [facility] Start: 01-10-2023 Procedure [facility] Start: 04-12-2022 Procedure [facility] Work Phone: Start: 01-07-2022 Measurement of substance [facility] Work Phone: Start: 01-07-2022 Procedure [facility] Work Phone: Measurement of substance [facility] Work Phone: Procedure [facility] Work Phone: [facility] Payers Date Payer Category Payer Medicare [id number] 2024 Self-pay [id number] 2009 Medicaid [id number] Unknown [id number] Unknown [id number] [id number] [id number] Unknown [id number] [id number] [id number] Unknown [id number] 2.16.8 [id number] Unknown [id number] 2.16.8 [id number] Unknown [id number] 2.16.8 [id number] Unknown [id number] 2.16.8 [id number] Unknown [id number] 2.16.8 [id number] Social History Date Type Detail [facility] Work Phone: Start: 1950 Sex Assigned At Male [facility] Work Phone: Start: 07-11-2024 Sex Male (finding) [facility] Evaluation note Note Date & Type Note Facility Evaluation note No assessment information availa ble [facility] Work Phone: Reason for referral (narrative) Note Date & Type Note Facility Reason for referral (narrative) No reason for referral information available [facility] Work Phone: Chief Complaint and Reason for Visit Chief Complaint [facility] Chief Complaint [facility] Chief Complaint [facility] Chief Complaint [facility] Chief Complaint [facility] Chief Complaint [facility] Chief Complaint [facility] LABWORK Chief Complaint CH[facility] Chief Complaint [facility]WORK LABWORK Chief Complaint LABWORK [facility] Chief Complaint LABWORK [facility] Chief Complaint LABWORK [facility] Chief Complaint Admit Date [facility] March 13 5:00am [facility] April 10, 2024 4:00am [facility] May 14 5:00am [facility] July 09, 2024 4: 00am [...] Dates Chris BRANNON MD Attending Provider, Referring Ihsan bliss Active Team Status: Active Member Role Status [...] ized section and content) DATE CREATED AUTHOR 02/02/2025 [facility] FOR RECORDS PERTAINING TO PATIENTS WHO ARE [...] BE BASED ON THE PRIMARY CLINICAL RECORDS. [facility] [employer] [facility]. provides no warranty or guarantee of the accuracy or completeness of information in this document.
== END ==
LOC: OLS.WCC 05:00
PROVIDERS: PCP Family Medicine; Visit Provider Family Medicine
DX: N40.0 Benign prostatic hyperplasia without lower urinary tract symptoms (principal); I10 Essential (primary) hypertension; I87.2 Venous insufficiency (chronic) (peripheral)
CPT/HCPCS: 36415

== ENCOUNTER → 2025-03-11 | Outpatient (REF) | payer MEDICARE, MEDICAID, SELFPAY ==
[2025-03-11 08:17] LABS: Hematocrit 32.4 % (40-54); Hemoglobin 11.3 g/dL (13.0-16.5); Immature Granulocytes Count 0.000 X10^3/uL (0.0-0.0); Mean Corp Hgb Conc 34.9 g/dL (32-36); Mean Corpuscular Volume 100.9 fL (80-94); Mean Platelet Vol. 9.9 fl (6.2-12.0); NRBC Flagged by Analyzer 0 % (0-5); POSITIVE COUNT YES; Platelet Count 86 K/mm3 (150-450); RBC Distribution Width CV 12.6 % (11.6-14.6); RBC Distribution Width SD 47.0 fl (35.1-43.9); Red Blood Count 3.21 M/mm3 (4.6-6.2); White Blood Count 2.2 K/mm3 (4.4-11.0)
[2025-03-11 08:20] LABS: Differential Indicated SCAN CRITERIA MET
[2025-03-11 08:41] LABS: AST(SGOT) 19 U/L (<=37); Alanine Aminotransfer ALT/SGPT 7 U/L (<=46); Albumin, Serum 2.7 g/dL (3.4-4.8); Alkaline Phosphatase 62 U/L (40-129); Anion Gap 7 (5-15); BUN 7 mg/dL (4-19); BUN/Creat Ratio 14.7 RATIO (10-20); Bilirubin, Direct 0.17 mg/dL (0.00-0.30); Calcium,Total 8.3 mg/dL (7.6-11.0); Carbon Dioxide 26.4 mmol/L (21.0-32.0); Chloride 105 mmol/L (98-108); Globulin 2.7 g/dL (2.2-4.2); Glucose 84 mg/dL (70-99); Potassium 3.8 mmol/L (3.3-5.1)
[2025-03-14 17:08] LABS: Trileptal-Oxcarbazepine 26 ug/mL (10-35)
== END ==
LOC: OLS.WCC 05:00
PROVIDERS: PCP Family Medicine; Visit Provider Family Medicine
DX: I10 Essential (primary) hypertension (principal); Z79.899 Other long term (current) drug therapy; R56.9 Unspecified convulsions; G80.9 Cerebral palsy, unspecified
CPT/HCPCS: 36415; 80048; 80076; 82542; 85025